=== PATIENT | female | born 1985 | race Caucasian/White ===

== ENCOUNTER → 2017-12-19 11:13 | Outpatient (CLI) | payer MEDICARE, SELFPAY ==
[2017-12-19 12:05] LABS: Absolute Lymphocyte Count 2.72 X10^3/ul (0.83-4.51); Absolute Neutrophil Count 5.5 X10^3/uL (2.0-7.7); Basophil# 0.04 X10^3/uL; Basophil% 0.4 % (0-1); Eosinophil# 0.38 X10^3/uL; Eosinophils% 4.1 % (0-5); Hematocrit 40.8 % (37-47); Hemoglobin 13.6 g/dl (12.0-15.0); Lymphocyte # 2.72 X10^3/ul (4.0); Lymphocyte % 29.6 % (19-41); Mean Corp Hgb Conc 33.3 g/gl (32-36); Mean Corpuscular Hgb 31.1 pg (27.0-32.0); Mean Corpuscular Volume 93.4 fL (81-99); Mean Platelet Vol. 11.9 fl (6.2-12.0); Monocyte# 0.51 X10^3/uL; Monocyte% 5.5 % (0-10); Neutrophil # 5.53 X10^3/uL (2.7-7.7); Neutrophil % 60.3 % (47-70); Platelet Count 203 K/mm3 (150-450); RBC Distribution Width CV 12.3 % (11.6-14.6); RBC Distribution Width SD 41.2 fl (35.1-43.9); Red Blood Count 4.37 M/mm3 (4.2-5.4); White Blood Count 9.2 K/mm3 (4.4-11.0)
[2017-12-19 12:06] LABS: POSITIVE COUNT NO; POSITIVE DIFFERENTIAL NO; POSITIVE MORPHOLOGY NO
[2017-12-19 12:28] LABS: ALB/GLOB Ratio 0.9 RATIO (0.9-2.4); AST(SGOT) 8 U/L (15-37); Alanine Aminotransfer ALT/SGPT 17 U/L (13-56); Albumin, Serum 3.3 g/dL (3.2-5.0); Alkaline Phosphatase 50 U/L (45-117); Anion Gap 9 (5-15); BUN 12 mg/dL (7-18); BUN/Creat Ratio 18.3 RATIO (10-20); Calcium,Total 8.4 mg/dL (8.5-10.1); Chloride 107 mmol/L (98-107); Creatinine, Serum 0.66 mg/dL (0.55-1.02); EST Glomerular Filtration Rate 113 mL/min (>60); Est Glom Filt Rate - Afr Amer 136 mL/min (>60); Ferritin 32 ng/mL (8-252); Globulin 3.6 g/dL (2.2-4.2); Glucose 86 mg/dL (74-106); Iron 121 ug/dL (50-170); Potassium 3.9 mmol/L (3.5-5.1); Protein, Total 6.9 g/dL (6.4-8.2); Sodium Level 142 mmol/L (136-145); T4 Free Direct 0.93 ng/dL (0.76-1.46); Thyroid Stim Hormone (TSH) 2.36 uIU/mL (0.358-3.74)
== END ==
PROVIDERS: Family Provider Family Medicine; PCP Family Medicine; Visit Provider Family Medicine
DX: N92.1 Excessive and frequent menstruation with irregular cycle (principal); I15.9 Secondary hypertension, unspecified; F41.9 Anxiety disorder, unspecified; R53.83 Other fatigue; E66.01 Morbid (severe) obesity due to excess calories
CPT/HCPCS: 36415; 80053; 82728; 83540; 84439; 84443; 85025

== ENCOUNTER 2024-12-26 18:06 | Emergency (ER) | payer MEDICARE, SELFPAY ==
[2024-12-26 18:08] VITALS: BP 152/108; PULSE 89; RESP 18; TEMP 36.6; O2SAT 97
[2024-12-26 18:56] VITALS: BMI 49.2
--- NOTE | 2024-12-26 18:57 | EDS_ITS ---
HPI History of Present Illness Chief Complaint: Lower Extremity Injury Narrative Narrative: Chief complaint and HPI: Right knee pain. 39-year-old female with past medical history of obesity presents for evaluation of right knee pain. Patient states for the past week she having pain in her right knee. States that is difficult to ambulate. She denies any injury or trauma. Denies any numbness or tingling. Denies any fever, chills, redness. Patient saw her PCP for the right knee pain in which she had an x-ray performed. She was able to show me the x-ray read. Negative for fracture or dislocation. No reported arthritis. Patient was told to take Tylenol and ibuprofen as needed for pain. She is set up to start physical therapy. Patient states her pain is continued which is why she presents today. Denies any calf tenderness. Review of systems: See HPI Medications: As listed on the chart Allergies: As listed on the chart PFSH: Per chart Vital signs: As listed on the chart. Reviewed. Physical exam: Gen: A&O x3, NAD Head: Normocephalic, atraumatic Eyes: No sclera icterus, conjunctiva clear ENT: Moist mucous membranes CV: Regular rate Resp: Nonlabored respiration Musc: Full ROM, of all extremities including the right knee, no deformity, no knee instability, no erythema/warmth/swelling/ecchymosis/crepitus rash to the knee, DP/PT pulses +2 bilaterally, good capillary refill, sensation intact, compartments soft, negative Homans' sign, minimal tenderness to palpation with movement of the right knee mostly along the lateral collateral ligament. Skin: Warm, dry Neuro: Alert, oriented, grossly intact, sensation intact Psych: Cooperative, appropriate mood and affect PFSH PFSH Medical History no medical history Allergy/AdvReac Type Severity Reaction Status Date / Time codeine Allergy Intermediate Rash Verified 12/26/24 18:08 adhesive tape Allergy Mild Rash Verified 12/26/24 18:08 lisinopril Allergy Mild unknown Verified 12/26/24 18:08 Penicillins (PCN) Allergy Mild Rash Verified 12/26/24 18:08 Surgical History no surgical history Social History Smoking Status: Current every day smoker tobacco type: cigarettes EXAM Physical Exam Const Vital Signs: 12/26/24 18:08 Temperature 97.8 F Temperature Source Temporal Pulse Rate 89 Respiratory Rate 18 Blood Pressure 152/108 H Blood Pressure Mean 122 Pulse Ox 97 Oxygen Delivery Method Room Air MDM MDM MDM Narrative Medical decision making narrative: 39-year-old female with past medical history of obesity presents for evaluation of right knee pain. Patient states for the past week she having pain in her right knee. States that is difficult to ambulate. She denies any numbness, tingling, weakness, infectious symptoms. Patient saw her PCP for the right knee pain in which she had an x-ray performed. She was able to show me the x-ray read. Negative for fracture or dislocation. No reported arthritis. Given patient does have a x-ray of the knee, I do not think another x-ray is needed. It was negative for arthritis, fracture, dislocation. Pain may be secondary to knee sprain versus muscle strain. Recommend continuing rest with Tylenol/ibuprofen as needed for pain. Will apply Bora bandage for comfort. She was educated that she could use an [id number] soft knee brace as needed as well. Will give her a one-time dose of Toradol IM. He was educated not to take ibuprofen for 8 hours. Return precautions explained. Follow-up with PCP and orthopedics which I will refer her to. She confirmed understand the plan. Patient stable to discharge home. Impression: 1. Right knee pain Discharge Plan Triage Chief Complaint: Lower Extremity Injury ED Provider: Harmeet Webb Dx/Rx/DC Orders Primary Care Provider: Larry Schroeder Referrals: Larry Schroeder MD [Primary Care Provider] - Print Language: Citizen Of [place]
[2024-12-26] MEDS: Ketorolac 30 MG/ML Syringe IM (19:20)
[2024-12-26 19:23] VITALS: PULSE 78; RESP 16; TEMP 36.6; O2SAT 99
--- OUTSIDE RECORDS SUMMARY | 2024-12-26 19:31 | XMS RPT_ITS | CCD ---
Author Organization [facility] Care Team Providers Care Tobacco Hanger Name Role Phone Cassidy Schroeder Unavailable Unavailable Cassidy Schroeder Unavailable Unavailable Lauro Quarles MD Primary Care Provider Lauro Quarles MD Primary Care Provider Lauro Quarles MD Primary Care Provi mag GEHLOT, UPENDER Attending Unavailable GEHLOT, UPENDER Consulting Unavailable OSMIN, UPENDER Admitting Unavailable LAURO QUARLES Primary Care Unava ilable GENA MCKENNA Consulting Unavailable Lauro Quarles MD Primary Care Provider Lauro Quarles MD Primary Care Provider KATEY GORDON, CASSIDY Primary Care Physician [phone] ISAC DAVILA DO Attending Unavailable CASSIDY SCHROEDER MD Primary Care Unavailable Lauro Quarles MD Primary Care Provider Podlogar DAIRY HUSBANDRY TEACHER.Mague DOW Unavailable [place] DAIRY HUSBANDRY TEACHER.Jeremy DOW Unavailable [place] DAIRY HUSBANDRY TEACHER.Jeremy DOW Unavailable [place] DAIRY HUSBANDRY TEACHER.Jeremy DOW Unavailable [place] DAIRY HUSBANDRY TEACHER.Jeremy DOW Unavailable MIRELLA GARCIA Attending Unavaila LAURO Malhotra Referring Unavailab LAURO Zamora Primary Care Unavailab MIRELLA Sue Attending Unavaila MIRELLA Farmer Referring Unavaila LAURO Malhotra Primary Care Unavailab RICHARD Kidd Referring Unavailable LAURO QUARLES Primary Care Unavailab le LAURO QUARLES Primary Care Unavailab RICHARD Kidd Attending Unavailable RICHARD BOYER Referring Unavailable MIRELLA GARCIA Attending Unavaila ble SAHRAA NESS, MIRELLA Marrero Referring Unavaila ble LAURO QUARLES Primary Care Unavailab le SAHARAGlen NESS, MIRELLA Marrero Attending Unavaila ble SAHARA NESS, MIRELLA Marrero Referring Unavaila ble LAURO QUARLES Primary Care Unavailab le SAHARAGlen NESS, MIRELLA Marrero Attending Unavaila ble SAHARA NESS, MIRELLA Marrero Referring Unavaila ble LAURO QUARLES Primary Care Unavailab le PODLOGMAGUE DONIS Attending Unavailable LAURO QUARLES Primary Care Unavailab RICHARD Kidd Attending Unavailable RICHARD BOYER Referring Unavailable LAURO QUARLES Primary Care Unavailab radha NESS, MIRELLA Marrero Attending Unavaila LAURO Malhotra Referring Unavailab LAURO Zamora Primary Care Unavailab radha NESS, MIRELLA Marrero Attending Unavaila ble LAURO QUARLES Referring Unavailab le LAURO QUARLES Primary Care Unavailab RICHARD Kidd Attending Unavailable LAURO QUARLES Primary Care Unavailab MIRELLA Sue Attending Unavaila LAURO Malhotra Referring Unavailab LAURO Zamora Primary Care Unavailab LAURO Zamora Primary Care Unavailab le PODLOGMAGUE DONIS Attending Unavailable LAURO QUARLES Primary Care Unavailab RICHARD Kidd Referring Unavailable LAURO QUARLES Primary Care Unavailab le LAURO QUARLES Primary Care Unavailab le MIRELLA GARCIA Attending Unavaila MIRELLA Farmer Referring Unavaila LAURO Malhotra Primary Care Unavailab LAURO Zamora Primary Care Unavailab RICHARD Kdid Attending Unavailable RICHARD BOYER Referring Unavailable LAURO QUARLES Primary Care Unavailab le PODLOGMAGUE DONIS Referring Unavailable LAURO QUARLES Primary Care Unavailab le NEYHART JUAN, KIN Attending Unavail able SELF Referring Unavailable LAURO QUARLES Primary Care Unavailab radha NESS, MIRELLA Marrero Attending Unavaila ble LAURO QUARLES Referring Unavailab LAURO Zamora Primary Care Unavailab le SAHARAGlen NESS, MIRELLA Marrero Attending Unavaila ble LAURO QUARLES Referring Unavailab le LAURO QUARLES Primary Care Unavailab radha NESS, MIRELLA Marrero Attending Unavaila ble SAHARA NESS, MIRELLA Marrero Referring Unavaila ble LAURO QUARLES Primary Care Unavailab le SAHARA NESS, MIRELLA Marrero Attending Unavaila ble LAURO QUARLES Referring Unavailab LAURO Zamora Primary Care Unavailab RICHARD Kidd Referring Unavailable LAURO QUARLES Primary Care Unavailab radha NESS, MIRELLA Marrero Attending Unavaila ble SAHARA NESS, MIRELLA Marrero Referring Unavaila ble LAURO QUARLES Primary Care Unavailab le KIN PABLO Attending Unavail able KIN PABLO Referring Unavail able LAURO QUARLES Primary Care Unavailab radha NESS, MIRELLA Marrero Attending Unavaila zeb NESS, MIRELLA Marrero Referring Unavaila ble LAURO QUARLES Primary Care Unavailab radha NESS, MIRELLA Marrero Attending Unavaila ble SAHARA NESS, MIRELLA Marrero Referring Unavaila ble LAURO QUARLES Primary Care Unavailab RICHARD Kidd Attending Unavailable RICHARD BOYER Referring Unavailable LAURO QUARLES Primary Care Unavailab radha NESS, MIRELLA Marrero Attending Unavaila ble SAHARA NESS, MIRELLA Marrero Referring Unavaila ble LAURO QUARLES Primary Care Unavailab LAURO Zamora Primary Care Unavailab radha NESS, MIRELLA Marrero Attending Unavaila ble SAHARA NESS, MIRELLA Marrero Referring Unavaila ble LAURO QUARLES Primary Care Unavailab LAURO Zamora B Primary Care Unavailab MARIA GUADALUPE Snowden Attending Unavailable MIRELLA GARCIA Attending Unavaila ble SAHARA NESS, MIRELLA Marrero Referring Unavaila ble LAURO QUARLES Primary Care Unavailab RICHARD Kidd Attending Unavailable RICHARD BOYER Referring Unavailable LAURO QUARLES Primary Care Unavailab MIRELLA Sue Attending Unavaila LAURO Malhotra Referring Unavailab le LAURO QUARLES Primary Care Unavailab le PODLOGMAGUE DONIS Referring Unavailable LAURO QUARLES Primary Care Unavailab le PODLOGARMAGUE Attending Unavailable LAURO QUARLES Primary Care Unavailab le Allergies Allergy Classification Reported Allergen(s) Allergy Type Date of Onset Reaction(s) Facility Adhesive Tape (2 sources) Adhesive Tape Substance Allergy [facility] Angiotensin Converting Enzyme (ADOLFO) Inhibitors (2 sources) Lisinopril Drug Allergy Anaphylaxis [facility] hydroCHLOROthiazide / Lisinopril (2 sources) hydroCHLOROthiazide / Lisinopril Drug Allergy GI Upset [facility] Work Phone: Opioid Agonists (2 sources) Codeine Drug Allergy Hives, Swelling [facility] Penicillins (antibiotic) (4 sources) Amoxicillin Drug Allergy [facility] (20 sources) Adhesive Tape; Translations: [ADHESIVE TAPE (ROSINS)] Propensity to adverse reactions [facility] (20 sources) Amoxicillin; Translations: [AMOXICILLIN] Drug Allergy [facility] (20 sources) Codeine; Translations: [CODEINE] Drug Allergy Hives, Swelling, Anaphylaxis [facility] (20 sources) hydroCHLOROthiazide / Lisinopril; Translations: [LISINOPRIL-HYDROCHLO ROTHIAZIDE] Drug Allergy GI Upset [facility] Work Phone: (19 sources) Penicillins; Translations: [PENICILLINS] Propensity to adverse reactions [facility] (20 sources) Penicillins Propensity to adverse reactions [facility] (20 sources) Lisinopril; Translations: [LISINOPRIL] Drug Allergy Anaphylaxis [facility] (2 sources) Penicillin G; Translations: [PENICILLIN G] Drug Allergy Hives [facility] (20 sources) Adhesive Tape-Silicones; Translations: [ADHESIVE TAPE-SILICONES] Propensity to adverse reactions to drug 022 Unknown [facility] (1 source) Adhesive Tape Allergy to substance [facility] (1 source) Penicillin; Translations: [penicillin] Drug Allergy [facility] (13 sources) Penicillins Propensity to adverse reactions 006 [facility] Medications Current Medications Medication Drug Class(es) Dates Sig (Normalized) Sig (Original) acyclovir 400 mg oral tablet (4 sources) Herpesvirus Nucleoside Analog DNA Polymerase Inhibitor, Herpes Simplex Virus Nucleoside Analog DNA Polymerase Inhibitor, Herpes Zoster Virus Nucleoside Analog DNA Polymerase Inhibitor Start: 06-23-2024 End: 06-28-2024 take 1 tablet by mouth three times daily acyclovir (ZOVIRAX) 400 mg tablet Indications: Cold sore Take 1 tablet by mouth three times a day for 5 days. 15 tablet 06/23/2024 06/28/2024 Active Start: 03-07-2023 End: 03-12-2023 take 1 tablet by mouth three times daily acyclovir (ZOVIRAX) 400 mg tablet Indications: Cold sore Take 1 tablet by mouth three times a day for 5 days. 15 tablet 0 03/07/2023 03/12/2023 Active Start: 02-27-2022 End: 03-01-2022 take 1 tablet by mouth three times daily acyclovir (ZOVIRAX) 800 mg tablet Take 1 tablet by mouth three times daily for 2 days. 6 tablet 2 02/27/2022 03/01/2022 Active Comment on above: Take 1 tablet by renae th three times daily for 2 days. Take 1 tablet by renae th three times a day for 5 days. amLODIPine 5 mg oral tablet (20 sources) Dihydropyridine Calcium Channel Nirali Start: 4 End: 5 take 1 tablet by mouth once daily amLODIPine (NORVASC) 5 mg tablet Indications: Hypertension, essential Take 1 tablet by mouth once daily. 90 tablet 1 07/11/2024 01/07/2025 Active Start: 03-07-2023 take 1 tablet by renae th once daily amLODIPine (NORVASC) 5 mg tablet Indications: Hypertension, essential Take 1 tablet by mouth once daily. 30 tablet 1 03/07/2023 Active Start: 01-08-2022 End: 01-11-2022 amLODIPine (NORVASC) tablet 10 mg Start: 06-29-2020 End: 01-08-2023 take 1 tablet by mouth once daily amLODIPine (NORVASC) 10 mg tablet Take 1 tablet by mouth once daily. 90 tablet 1 12/29/2022 01/08/2023 Discontinued (Course of therapy completed) Comment on above: Take 1 tablet by renae once daily. ARIPiprazole 2 mg oral tablet (4 sources) Atypical Antipsychotic Start: 06-09-19 End: 07-16-19 take 1 tablet by mouth once daily, then take 2 tablets by mouth once daily ARIPiprazole (ABILIFY) 2 mg tablet Take 1 tablet by mouth once daily for 7 days, THEN 2 tablets once daily. 67 tablet 06/09/2024 07/16/2024 Active busPIRone hydrochloride 15 mg oral tablet (8 sources) Start: 04-02-20 End: 05-02-20 take 1 tablet by mouth twice daily busPIRone (BUSPAR) 15 mg tablet Take 1 tablet by mouth two times a day. (Morning and afternoon). 60 tablet 04/02/2024 05/02/2024 Active Start: 03-03-2024 End: 05-02-2024 take 1 tablet by mouth twice daily busPIRone (BUSPAR) 10 mg tablet Take 1 tablet by mouth two times a day. 60 tablet 1 03/03/2024 04/02/2024 Discontinued COMPOUNDED PRESCRIPTION (20 sources) Start: 09-07-2017 COMPOUNDED PRE SCRIPTION Full length original Power Steps 1 Box 09/07/2017 Active Start: 09-07-2017 COMPOUNDED PRE SCRIPTION Full length original Power Steps 1 Box 0 09/07/2017 Active Comment on above: Full length original Power Steps doxycycline hyclate 100 mg oral tablet (3 sources) Tetracycline-class Drug Start: 08-17-2024 End: 08-17-2024 take 2 tablets by mouth once doxycycline (VIBRA-TABS) 100 mg tablet Indications: Tick bite of right foot, initial encounter Take 2 tablets by mouth one time only for 1 dose. 2 tablet 08/17/2024 08/17/2024 Active Start: 02-17-2022 End: 02-27-2022 take 1 tablet by mouth twice daily doxycycline (VIBRA-TABS) 100 mg tablet Indications: Bacterial sinusitis Take 1 tablet by mouth twice daily for 10 days. 20 tablet 0 02/17/2022 02/27/2022 Active Comment on above: Take 1 tablet by renae th twice daily for 10 days. lamoTRIgine 200 mg oral tablet (20 sources) Mood Stabilizer, Anti-epileptic Agent Start: 04-07-2022 End: 02-03-2025 take 1 tablet by mouth once daily lamoTRIgine (LAMICTAL) 200 mg tablet Take 1 tablet by mouth once daily. 90 tablet 11/05/2024 02/03/2025 Active Start: 01-08-2022 End: 01-11-2022 lamoTRIgine (LAMICTAL) table t 200 mg Start: 01-08-2022 End: 01-08-2022 lamoTRIgine (LAMICTAL) table t 150 mg Start: 12-30-2021 End: 03-31-2022 take 1 tablet by mouth once daily lamoTRIgine (LAMICTAL) 200 mg tablet Take 1 tablet by mouth once daily. 30 tablet 1 03/01/2022 03/31/2022 Active Start: 11-28-2021 End: 12-28-2021 take 1 tablet by mouth once daily lamoTRIgine (LAMICTAL) 200 mg tablet Take 1 tablet by mouth once daily. 30 tablet 1 11/28/2021 12/28/2021 Active Start: 09-07-2021 End: 01-11-2022 take 1 tablet by mouth once daily lamoTRIgine (LAMICTAL) 150 mg tablet Take 1 tablet by mouth once daily. 30 tablet 1 10/24/2021 11/28/2021 Discontinued Start: 11-05-2019 End: 09-07-2021 take 4 tablets by mouth once daily lamoTRIgine (LAMICTAL) 25 mg tablet Take 100 mg by mouth once daily. 0 11/05/2019 09/07/2021 Discontinued (Course of therapy completed) Comment on above: Take 100 mg by mouth once daily. Take 1 tablet by renae th once daily. Levonorgestrel (20 sources) Progestin, Progestin-containing Intrauterine Device levonorgestrel (MIRLANDE NA INTRAUTERINE) by INTRAUTERINE route. Active levonorgestrel ( MIRENA INTRAUTERINE) by INTRAUTERINE route. 0 Active Comment on above: by INTRAUTERINE rout e. lithium carbonate 450 mg extended release oral tablet (20 sources) Start: 04-07-2022 End: 02-03-2025 take 2 tablets by mouth once daily at bedtime lithium carbonate ER 450 mg CR tablet Take 2 tablets by mouth daily at bedtime. 180 tablet 11/05/2024 02/03/2025 Active Start: 02-02-2022 End: 03-31-2022 take 2 tablets by mouth once daily at bedtime lithium carbonate ER 450 mg CR tablet Take 2 tablets by mouth daily at bedtime. 30 tablet 2 03/01/2022 03/31/2022 Active Start: 12-19-2021 End: 02-10-2022 take 1 tablet by mouth twice daily lithium carbonate ER 450 mg CR tablet Take 1 tablet by mouth twice daily. 60 tablet 0 12/19/2021 02/02/2022 Discontinued Start: 12-07-2021 End: 01-06-2022 take 1 capsule by mouth twice daily at mealtime lithium carbonate (ESKALITH) 300 mg capsule Take 1 capsule by mouth twice daily with meals. 60 capsule 1 12/07/2021 12/19/2021 Discontinued Comment on above: Take 1 capsule by mo uth twice daily with meals. Take 1 tablet by renae th twice daily. Take 2 tablets by mo uth daily at bedtime. losartan potassium 100 mg oral tablet (20 sources) Angiotensin 2 Receptor Nirali Start: End: take 1 tablet by mouth once daily losartan (COZAAR) 100 mg tablet Indications: Primary hypertension Take 1 tablet by mouth once daily. 90 tablet 1 04/11/2024 Active Start: 03-06-2022 take 1 tablet by renae th once daily losartan (COZAAR) 100 mg tablet Indications: Primary hypertension Take 1 tablet by mouth once daily. 90 tablet 1 03/06/2022 Active Start: 06-29-2020 End: 09-07-2021 take 1 tablet by mouth once daily losartan (COZAAR) 100 mg tablet Take 1 tablet by mouth once daily. 90 tablet 3 06/29/2020 09/07/2021 Discontinued (Side Effects) Comment on above: Take 1 tablet by renae th once daily. Take 100 mg by mouth once daily. lurasidone hydrochloride 60 mg oral tablet (20 sources) Atypical Antipsychotic Start: End: take 1 tablet by mouth once daily at dinner lurasidone (LATUDA) 60 mg tablet Take 1 tablet by mouth daily with dinner. 90 tablet 11/05/2024 02/03/2025 Active Start: 07-22-2024 End: 10-20-2024 take 1 tablet by mouth once daily at dinner lurasidone (LATUDA) 40 mg tablet Take 1 tablet by mouth daily with dinner. 90 tablet 07/22/2024 08/11/2024 Discontinued metFORMIN hydrochloride 500 mg oral tablet (20 sources) Biguanide Start: 10-17-2023 End: 02-03-2025 take 1 tablet by mouth twice daily at mealtime metFORMIN (GLUCOPHAGE) 500 mg tablet Take 1 tablet by mouth two times a day with meals. 180 tablet 11/05/2024 02/03/2025 Active Start: 04-07-2022 End: 08-01-2023 take 1 tablet by mouth twice daily at mealtime metFORMIN (GLUCOPHAGE) 500 mg tablet Take 1 tablet by mouth two times a day with meals. 180 tablet 0 05/03/2023 Active Start: 03-01-2022 End: 03-31-2022 take 1 tablet by mouth twice daily at mealtime metFORMIN (GLUCOPHAGE) 500 mg tablet Take 1 tablet by mouth twice daily with meals. 60 tablet 1 03/01/2022 03/31/2022 Active Start: 02-02-2022 End: 03-11-2022 take 1 tablet by mouth once daily at dinner, then take 1 tablet by mouth twice daily at mealtime metFORMIN (GLUCOPHAGE) 500 mg tablet Take 1 tablet by mouth daily with dinner for 7 days, THEN 1 tablet twice daily with meals. 67 tablet 1 02/02/2022 03/01/2022 Discontinued Comment on above: Take 1 tablet by renae th daily with dinner for 7 days, THEN 1 tablet twice daily with meals. Take 1 tablet by renae th twice daily with meals. Take 1 tablet by renae th two times a day with meals. nitrofurantoin, macrocrystals 25 mg / nitrofurantoin, monohydrate 75 mg oral capsule (8 sources) Nitrofuran Antibacterial Start: 11-19-19 End: 11-24-19 take 1 capsule by mouth twice daily nitrofurantoin monohydrate and macrocrystal (MACROBID) 100 mg capsule Indications: Urinary frequency Take 1 capsule by mouth two times a day for 5 days. 10 capsule 11/18/2024 11/23/2024 Active Start: 01-11-2022 take 1 capsule by [facility] every twelve hours nitrofurantoin, macrocrystal-monohydrate , (MACROBID) 100 MG capsule Take 1 (one) capsule (100 mg total) by mouth every 12 (twelve) hours . 3 capsule 0 01/11/2022 Active Start: 01-08-2022 End: 01-25-2022 take 1 capsule by mouth every twelve hours nitrofurantoin monohydrate and macrocrystal (MACROBID) 100 mg capsule Take 100 mg by mouth q 12 HR. 0 01/11/2022 01/25/2022 Discontinued (Course of therapy completed) Comment on above: Take 100 mg by mouth q 12 HR. nystatin 100 unt/mg topical ointment (3 sources) Polyene Antifungal Start: 03-11-2024 End: 03-25-2024 nystatin (MYCOSTATIN) ointment Indications: Intertrigo Apply 1 application to affected area two times a day for 14 days. 30 g 1 03/11/2024 03/25/2024 Active Start: 09-26-2021 End: 10-10-2021 nystatin (MYCOSTATIN) ointme nt Indications: Intertrigo Apply 1 application to affected area twice daily for 14 days. 30 g 1 09/26/2021 10/10/2021 Active Comment on above: Apply 1 application to affected area twice daily for 14 days. omeprazole 40 mg delayed release oral capsule (20 sources) Proton Pump Inhibitor Start: End: take 1 capsule by mouth twice daily in the morning omeprazole (PRILOSEC) 40 mg capsule Take 1 capsule by mouth two times a day. Please take in the morning, wait 30 minutes before eating/drinking/takin g other medication. Please take second dose 30 minutes before eating dinner 60 capsule 2 12/21/2023 02/04/2024 Discontinued Start: 11-26-2023 End: 02-24-2024 take 1 capsule by mouth once daily before breakfast, then take 1 capsule by mouth once at dinner omeprazole (PRILOSEC) 40 mg capsule take 1 capsule by mouth EVERY MORNING BEFORE BREAKFAST WAIT 30 MINUTES BEFORE EATING/DRINKING/TAKING OTHER MEDICATIONS THEN TAKE THE SECOND PILL BEFORE EATING DINNER 180 capsule 2 02/04/2024 Active Start: 08-06-2023 End: 11-04-2023 take 1 capsule by mouth once daily omeprazole (PRILOSEC) 40 mg capsule Take 1 capsule by mouth once daily. 90 capsule 0 08/06/2023 Active Start: 01-17-2023 End: 06-25-2023 take 1 capsule by mouth once daily omeprazole (PRILOSEC) 40 mg capsule Take 1 capsule by mouth once daily. 30 capsule 2 03/27/2023 Active Start: 09-22-2020 End: 01-31-2022 take 1 capsule by mouth once daily before breakfast omeprazole (PRILOSEC) 40 mg capsule Indications: GERD without esophagitis Take 1 capsule by mouth daily before breakfast. 1/2 hr before meal. 90 capsule 0 08/15/2021 01/17/2022 Discontinued Comment on above: Take 1 capsule by mo uth daily before breakfast. 1/2 hr before meal. Take 40 mg by mouth. Take 1 capsule by mo uth once daily. triamcinolone acetonide 0.25 mg/ml topical lotion (6 sources) Corticosteroid Start: 07-23-2024 End: 08-06-2024 triamcinolone (KENALOG) 0.025 % lotn Indications: Psoriasis (a type of skin inflammation) Apply 1 application to affected area two times a day for 14 days. 60 mL 1 07/23/2024 08/06/2024 Active Start: 03-07-2023 End: 03-21-2023 triamcinolone (KENALOG) 0.02 5 % lotn Indications: Psoriasis (a type of skin inflammation) Apply 1 application to affected area two times a day for 14 days. 60 mL 1 03/07/2023 03/21/2023 Active Start: 12-15-2021 End: 12-15-2021 triamcinolone acetonide 5 mg injection (KeNALog 10) Comment on above: Apply 1 application to affected area two times a day for 14 days. Completed/Discontinued Medications Medication Drug Class(es) Dates Sig (Normalized) Sig (Original) [id number] 200 actuat albuterol 0.09 mg/actuat metered dose inhaler (20 sources) beta2-Adrenergic Agonist Start: 02-05-2024 End: 09-09-2024 take 2 puff(s) by inhalation every four hours as needed for wheezing albuterol HFA (PROVENTIL HFA, VENTOLIN HFA) 90 mcg/actuation inhaler Indications: Wheezing , SOB (shortness of breath) Inhale 2 Puffs as instructed every 4 hours as needed for wheezing/shortness of breath. 18 g 1 02/05/2024 09/09/2024 Discontinued aluminum hydroxide 40 mg/ml / magnesium hydroxide 40 mg/ml / simethicone 4 mg/ml oral suspension (1 source) Start: 01-08-2022 End: 01-11-2022 take 30 mL by mouth every four hours as needed aluminum-magnesium hydroxide-simethico ne (MAALOX PLUS) 200-200-20 mg/5 mL suspension 30 mL benzonatate 100 mg oral capsule (6 sources) Non-narcotic Antitussive Start: 11-18-2020 End: 09-07-2021 take 1 capsule by mouth every eight hours as needed benzonatate (TESSALON PERLES) 100 mg capsule Take 1 capsule by mouth three times daily as needed for cough. 12 capsule 0 11/18/2020 09/07/2021 Discontinued (Course of therapy completed) Comment on above: Take 1 capsule by [facility] three times daily as needed for cough. 2 ml benztropine mesylate 1 mg/ml injection (1 source) Anticholinergic, Antihistamine Start: 01-08-2022 End: 01-11-2022 inject 2 mg by intramuscular injection every twenty-four hours as needed benztropine (COGENTIN) injection 2 mg brexpiprazole 1 mg oral tablet (2 sources) Atypical Antipsychotic Start: 07-02-2024 End: 08-01-2024 take 1 tablet by mouth once daily in the morning brexpiprazole (REXULTI) 1 mg tablet Take 1 tablet by mouth every morning. 30 tablet 07/02/2024 07/22/2024 Discontinued (Cost of medication) 5 ml bupivacaine hydrochloride 5 mg/ml injection (1 source) Amide Local Anesthetic Start: 12-15-2021 End: 12-15-2021 bupivacaine (PF) 0.5 % (5 mg/mL) 2.5 mg injection cholecalciferol 1.25 mg oral capsule (13 sources) Vitamin D Start: 11-11-2021 End: 02-09-2022 take 1 capsule by mouth every week cholecalciferol, Vitamin D3, (VITAMIN D3) 1,250 mcg (50,000 unit) cap capsule Take 1 capsule by mouth one time a week. 12 capsule 0 11/11/2021 01/25/2022 Discontinued (Course of therapy completed) Comment on above: Take 1 capsule by [facility] one time a week. cyclobenzaprine hydrochloride 10 mg oral tablet (20 sources) Muscle Relaxant Start: 09-18-2022 End: 03-07-2023 take 1 tablet by mouth three times daily as needed for muscle spasms cyclobenzaprine (FLEXERIL) 10 mg tablet Indications: Acute bilateral low back pain without sciatica Take 1 tablet by mouth three times daily as needed for muscle spasm. 30 tablet 0 09/18/2022 03/07/2023 Discontinued (Course of therapy completed) Comment on above: Take 1 tablet by [facility] three times daily as needed for muscle spasm. 1 ml dexamethasone phosphate 4 mg/ml injection (1 source) Corticosteroid Start: 12-15-2021 End: 12-15-2021 dexAMETHasone sodium phosphate 2 mg injection (DECADRON) DULoxetine 30 mg delayed release oral capsule (20 sources) Serotonin and Norepinephrine Reuptake Inhibitor Start: 10-24-2021 End: 11-04-2021 take 1 capsule by mouth every other day DULoxetine (CYMBALTA) 30 mg capsule Take 1 capsule by mouth every other day. 0 10/24/2021 11/04/2021 Discontinued (Course of therapy completed) Start: 10-04-2021 End: 11-03-2021 take 1 capsule by mouth once daily DULoxetine (CYMBALTA) 30 mg capsule Take 1 capsule by mouth once daily. 30 capsule 1 10/04/2021 10/24/2021 Discontinued (Adjust Sig - Block E-Cancel) Start: 01-18-2021 End: 09-19-2021 take 1 capsule by mouth once daily DULoxetine (CYMBALTA) 60 mg capsule Take 1 capsule by mouth once daily. 90 capsule 1 01/18/2021 09/19/2021 Discontinued (Side Effects) Start: 05-19-2019 End: 09-07-2021 take 1 capsule by mouth once daily DULoxetine (CYMBALTA) 30 mg capsule Take 1 capsule by mouth once daily. 90 capsule 1 01/18/2021 09/07/2021 Discontinued (Side Effects) Comment on above: Take one 30 mg capsu le with the 60 mg capsule to equal 90 mg daily Take 1 capsule by mo ut once daily. Take 1 capsule by mo ut every other day. fluticasone propionate 0.05 mg/actuat metered dose nasal spray (5 sources) Corticosteroid Start: 02-09-20 take 2 spray(s) by mouth once daily fluticasone (FLONASE) 50 mcg/actuation nasal spray Use 2 Sprays in each nostril once daily. Rinse mouth after use. 11.1 mL 0 02/08/2022 Active Comment on above: Use 2 Sprays in each nostril once daily. Rinse mouth after use. Haloperidol (1 source) Typical Antipsychotic Start: 01-09-20 End: 01-12-20 take 1 tablet by mouth every four hours as needed haloperidoL (HALDOL) tablet 5 mg hydrOXYzine hydrochloride 50 mg oral tablet (20 sources) Antihistamine Start: 08-10-19 End: 11-08-19 take 1 tablet by mouth every twenty-four hours as needed hydrOXYzine HCl (ATARAX) 50 mg tablet Take 1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 equation. Glucose [Mass/Vol] 111 mg/dL High 65 - 99 mg/dL [facility] HCO3 [Moles/Vol] 24 mmol/L 21 - 32 mmol/L [facility] Potassium [Moles/Vol] 3.5 mmol/L 3.5 - 5.1 mmol/L [facility] Protein [Mass/Vol] 8.1 g/dL High 6 - 8 g/dL [facility] alth Sodium [Moles/Vol] 139 mmol/L 135 - 145 mmol/L [facility] Urea nitrogen [Mass/Vol] 14 mg/dL 8 - 25 mg/dL [facility] Urea nitrogen/Creatinine [Mass ratio] 12.8 mg/mg 10 - 20 [facility] has implemented the eGFR calculation approach that does not have a coefficient for race that conforms to the NKF-ASN Task Force Recommendations. [facility] Lipid 1996 panelon 2 Cholesterol [Mass/Vol] 227 mg/dL High 100 - 199 mg/dL [facility] Comment on above: National Cholesterol Education Program Guidelines: Cholesterol Desirable: <200 mg/dL Borderline High: 200-239 mg/dL High: greater than or equal to 240 mg/dL Cholesterol in HDL [Mass/Vol] 38 mg/dL Low 40 - 59 mg/dL [facility] Comment on above: National Cholesterol Education Program Guidelines: HDL Cholesterol Low: <40 mg/dL Near Optimal: 40-59 mg/dL High: greater than or equal to 60 mg/dL Cholesterol in LDL [Mass/Vol] 159 mg/dL High 10 - 130 mg/dL [facility] Comment on above: National Cholesterol Education Program Guidelines: LDL Cholesterol Optimal: <100 mg/dL Near Optimal/above Optimal: 100-129 mg/dL Borderline High: 130-159 mg/dL High: 160-189 mg/dL Very High: greater than or equal to 190 mg/dL Cholesterol non HDL [Mass/Vol] 189 mg/dL [facility] Comment on above: National Cholesterol Education Program Guidelines: NON HDL Cholesterol Desirable: <130 mg/dL Borderline High: 130-159 mg/dL High: 160-189 mg/dL Very High: > or = 190 mg/dL Cholesterol.total/Ch olesterol in HDL [Mass ratio] 6.0 {ratio} ratio [facility] Comment on above: Female Cholesterol/H DL Ratio: Average risk: 4.4 1/2 average risk: 3.3 2 x average risk: 7.1 Triglyceride [Mass/Vol] 152 mg/dL High 30 - 150 mg/dL [facility] Comment on above: National Cholesterol Education Program Guidelines: Triglyceride Normal: <150 mg/dL Borderline High: 150-199 mg/dL High: 200-499 mg/dL Very High: greater than or equal to 500 mg/dL No Panel Informationon 01-08 [facility] Interpretation and review of laboratory results Abnormal [facility] TSH DL <= 0.005 mIU/L Qnon 0 01-08-2022 Interpretation and review of laboratory results Normal [facility] TSH Qn 1.95 m[IU]/L [facility] UrinalysisOrdered By: Hayes Moyer on 01-08-2022 Bacteria Auto Ql (U) Few Abnormal None Seen /hpf [facility] Bilirubin Ql (U) Negative Negative [facility] th Clarity Refractometry automated (U) Cloudy Abnormal Clear [facility] Color (U) Yellow Colorless, Yellow [facility] Epithelial cells.squamous Auto (Urine sed) [#/Area] 5 High [facility] Glucose Auto test strip (U) [Mass/Vol] Negative Negative mg/dL [facility] Hemoglobin Auto test strip Ql (U) Moderate Abnormal Negative [facility] Interpretation and review of laboratory results Abnormal [facility] Ketones (U) [Mass/Vol] Negative Negative mg/dL [facility] Leukocyte clumps Auto (Urine sed) [#/Area] Many Abnormal None Seen /hpf [facility] Leukocyte esterase Auto test strip Ql (U) Large Abnormal Negative [facility] Mucus Auto (Urine sed) [#/Area] Few Abnormal None Seen, Rare /lpf [facility] Nitrite Auto test strip Ql (U) Negative Negative [facility] pH (U) 8.0 [pH] High 5 - 7 [facility] Protein (U) [Mass/Vol] 30 mg/dL Abnormal Negative mg/dL [facility] Comment on above: False positive resul ts may occur in urines with large amounts of hemoglobin, pH greater than 8.0, contrast medium, or disinfectants including ammonium compounds. RBC Auto (Urine sed) [#/Area] 67 High [facility] Specific gravity (U) [Rel density] 1.014 1.005 - 1.025 [facility] Urobilinogen (U) [Mass/Vol] mg/dL NINF - 2.0 mg/dL [facility] WBC Auto (Urine sed) [#/Area] High [facility] Microscopic examination is performed on all urinalysis samples and only positive findings are reported. The test for blood on the chemical analytic portion of urinalysis may also be positive due to hemoglobinuria and myoglobinuria and if red blood cells are present they are quantified by microscopic examination. [facility] Alcohol, Medicalon 2 Ethanol [Mass/Vol] mg/dL NINF - 10 .00 mg/dL [facility] Comment on above: Alcohol cutoff: <10. 00 mg/dL = None Detected Beta HCG ( test) Ql on 01-07-2022 Interpretation and review of laboratory results Normal [facility] Negative: The result is less than or equal to 5 mIU/mL of HCG. [facility] COVID-19, MOLECULARon 2021 SARS-CoV-2 (COVID-19) RNA ENZO+probe Ql (Unsp spec) Not detected Normal Not Detected [facility] Comment on above: Order Comment: This test was performed under the FDA's Emergency Use Authorization (EUA). Testing was performed using the Rachana SARS-CoV-2 RT-PCR Test on the [facility] System. This test has not been approved for use in asymptomatic patients and its performance in this patient population has not been evaluated. Negative results do not rule out the presence of SARS-CoV-2. Fact sheets for the EUA can be found at the following links: For Healthcare Providers: https://www.fda.gov/media/915489/download For Patients: https://www.fda.gov/media/553164/download Performed By: #### L [id number] #### [facility] [address], [place] [address] Paul Martinez M.D. [id number] COVID-19, MolecularOrdered B y: Evelyn Stephanie on 01-07-2022 SARS-CoV-2 (COVID-19) RNA ENZO+probe Ql (Resp) Not detected Not Detected [facility] Ethanol [Mass/Vol]on 022 Interpretation and review of laboratory results Normal [facility] HCG (QUALITATIVE)on 01-08-20 22 Beta HCG ( test) Ql Negative Negative [facility] No Panel Informationon 01-07 Extra Tube Hold for add-ons[facility] Comment on above: Auto resulted. [facility] SARS-CoV-2 (COVID-19) RNA NA A+probe Ql (Resp)Ordered By: Evelyn Brown on 01-07-2022 Interpretation and review of laboratory results Normal [facility] This test was performed under the FDA's Emergency Use Authorization (EUA). Testing was performed using the Rachana SARS-CoV-2 RT-PCR Test on the [employer] [facility] System. This test has not been approved for use in asymptomatic patients and its performance in this patient population has not been evaluated. Negative results do not rule out the presence of SARS-CoV-2. Fact sheets for the EUA can be found at the following links: For Healthcare Providers: https://www.fda.gov/ media/394003/downloa d For Patients: https://www.fda.gov/ media/747751/downloa d [facility] Urine Drug Screenon 01-08-20 22 Amphetamines Ql (U) Not detected None Detected [facility] Comment on above: Urine Amphetamine Cu toff: < 1000 ng/mL = None Detected Barbiturates Screen Ql (U) Not detected None Detected [facility] Comment on above: Urine Barbiturates C utoff: < 200 ng/mL = None Detected Benzodiazepines Ql (U) Not detected None Detected [facility] Comment on above: Urine Benzodiazepine Cutoff: < 200 ng/mL = None Detected Buprenorphine Ql (U) Not detected None Detected [facility] Comment on above: Urine Buprenorphine Cutoff: < 5 ng/mL = None Detected Cannabinoids Screen Ql (U) Positive Abnormal None Detected [facility] Comment on above: Urine Cannabinoids C utoff: < 50 ng/mL = None Detected Cocaine Ql (U) Not detected None Detected [facility] Comment on above: Urine Cocaine Cutoff : < 300 ng/mL = None Detected fentaNYL+Norfentanyl Screen Ql (U) Not detected None Detected [facility] Comment on above: Urine Fentanyl Cutof f: < 1 ng/mL = None Detected Interpretation and review of laboratory results Abnormal [facility] Methadone Screen Ql (U) Not detected None Detected [facility] Comment on above: Urine Methadone Cuto ff: < 300 ng/mL = None Detected Opiates Screen Ql (U) Not detected None Detected [facility] Comment on above: Urine Opiates Cutoff : < 300 ng/mL = None Detected oxyCODONE Ql (U) Not detected None Detected [facility] Comment on above: Urine Oxycodone Cuto ff: < 100 ng/mL = None Detected Specimen will be kept for 1 week, if the sample is adequate. Confirmation testing can be initiated by calling the lab within 1 week. Screen results should be used for treatment purposes only. [facility] COVID PCR, SCREENING CONGREG ATEon 11-13-2019 CORONAVIRUS 2019,PCR NOT DETECTED Normal Not Detected [facility] Comment on above: Result Comment: This assay is designed to detect the N, ORF1ab and/or S genes of SARS-CoV-2 via nucleic acid amplification. A Negative (NOT DETECTED) result does not preclude 2019-nCoV infection since the adequacy of sample collection and/or low viral burden may result in presence of viral nucleic acids below the clinical sensitivity of this test method. Negative (NOT DETECTED) result should not be used as the sole basis for treatment or other patient management decisions. Rather negative results should be combined with clinical observations, patient history, and epidemiological information to make patient management decisions. Fact sheet for providers: https://www.fda.gov/media/826731/download Fact sheet for patients: https://www.fda.gov/media/698051/download This test has received FDA Emergency Use Authorization (EUA) and has been verified by [facility] ([facility]). This test is only authorized for the duration of time that circumstances exist to justify the authorization of the emergency use of in vitro diagnostic tests for the detection of SARS-CoV-2 virus and/or diagnosis of COVID-19 infection under section 564(b)(1) of the Act, 21 U.S.C. 360bbb-3(b)(1), unless the authorization is terminated or revoked sooner. [facility] ([facility]) is certified under CLIA-88 as qualified to perform high complexity testing. This tests analytical performance characteristics have been determined by [facility]. Testing is performed at [facility] is located at [address] [place] [address] (CLIA License #[id number], CAP #[id number]). Performed By: #### C VCLA #### [facility] [address] [place] [address] COVID PCR, SCREENING CONGREG ATEon 11-12-2019 Lab Specimen Source Nasal, Nasopharyngeal Normal [facility] Comment on above: Performed By: #### C VCLA #### [facility] [address] [place] [address] CBC W/Diff, Automatedon 08-0 Absolute Neut 5.5 X10 3/uL Normal 2.0-7.7 [facility] Comment on above: Performed By: #### L 100.0100 ####[facility] [address] [place], [address] Basophils/100 WBC Auto (Bld) 0.4 % Normal 0-1 [facility] Comment on above: Performed By: #### L 100.0100 ####[facility] [address] [place], [address] Eosinophils/100 WBC Auto (Bld) 4.1 % Normal 0-5 [facility] Comment on above: Performed By: #### L 100.0100 ####[facility] [address] [place], [address] Erythrocyte distribution width Auto Ratio (RBC) 12.3 % Normal 11.6-14.6 [facility] Comment on above: Performed By: #### L 100.0100 ####[facility] [address] [place], [address] Hematocrit Auto Volume Fraction (Bld) 40.8 % Normal 37-47 [facility] Comment on above: Performed By: #### L 100.0100 ####[facility] [address] [place], [address] Hemoglobin mass conc (Bld) 13.6 g/dL Normal 12.0-15.0 [facility] Comment on above: Performed By: #### L 100.0100 ####[facility] [address] [place], [address] IM GRAN % 0.100 % Normal 0.0-0.9 [facility] Comment on above: Result Comment: IG% - Immature Granulocytes (promyelocytes, myelocytes andmetamyelocytes) > 1% indicates that a LEFT SHIFT is Present. Performed By: #### L 100.0100 ####[facility] [address] [place], [address] Lymphocytes Auto #/vol (Bld) 2.72 X10 3/ul Normal 0.83-4.51 [facility] Comment on above: Performed By: #### L 100.0100 ####[facility] [address] [place], [address] Lymphocytes/100 WBC Auto (Bld) 29.6 % Normal 19-41 [facility] Comment on above: Performed By: #### L 100.0100 ####[facility] [address] [place], [address] MCH Auto Entitic mass (RBC) 31.1 pg Normal 27.0-32.0 [facility] Comment on above: Performed By: #### L 100.0100 ####[facility] [address] [place], [address] MCHC Auto mass conc (RBC) 33.3 g/gl Normal 32-36 [facility] Comment on above: Performed By: #### L 100.0100 ####[facility] [address] [place], [address] MCV Auto Entitic volume (RBC) 93.4 fL Normal 81-99 [facility] Comment on above: Performed By: #### L 100.0100 ####[facility] [address] [place], [address] Monocytes/100 WBC Auto (Bld) 5.5 % Normal 0-10 [facility] Comment on above: Performed By: #### L 100.0100 ####[facility] [address] [place], [address] Neutrophils/100 WBC Auto (Bld) 60.3 % Normal 47-70 [facility] Comment on above: Performed By: #### L 100.0100 ####[facility] [address] [place], [address] Platelet mean volume Auto Entitic volume (Bld) 11.9 fL Normal 6.2-12.0 [facility] Comment on above: Performed By: #### L 100.0100 ####[facility] [address] [place], [address] Platelets Auto #/vol (Bld) 203 10*3/uL Normal 150-450 [facility] Comment on above: Performed By: #### L 100.0100 ####[facility] [address] [place], [address] RBC Auto #/vol (Bld) 4.37 M/mm3 Normal 4.2-5.4 [facility] Comment on above: Performed By: #### L 100.0100 ####[facility] [address] [place], [address] RDW SD 41.2 fl Normal 35.1-43.9 [facility] Comment on above: Performed By: #### L 100.0100 ####[facility] [address] [place], [address] WBC Auto #/vol (Bld) 9.2 10*3/uL Normal 4.4-11.0 [facility] Comment on above: Performed By: #### L 100.0100 ####[facility] [address] [place], [address] Comprehensive Metabolic Prof ilon 12-19-2017 A/G 0.9 RATIO Normal 0.9-2.4 [facility] Comment on above: Performed By: #### L 500.4050, L501.9520, L503.6150, L503.6550, L506.0400 ####[facility] [address] [place], [address] Albumin mass conc 3.3 g/dL Normal 3.2-5.0 [facility] Comment on above: Performed By: #### L 500.4050, L501.9520, L503.6150, L503.6550, L506.0400 ####[facility] [address] [place], [address] ALP enzyme act/vol 50 U/L Normal 45-117 [facility] Comment on above: Performed By: #### L 500.4050, L501.9520, L503.6150, L503.6550, L506.0400 ####[facility] [address] [place], [address] ALT enzyme act/vol 17 U/L Normal 13-56 [facility] Comment on above: Performed By: #### L 500.4050, L501.9520, L503.6150, L503.6550, L506.0400 ####[facility] [address] [place], [address] AST enzyme act/vol 8 U/L Low 15-37 [facility] Comment on above: Performed By: #### L 500.4050, L501.9520, L503.6150, L503.6550, L506.0400 ####[facility] [address] [place], [address] Bilirubin mass conc 0.30 mg/dL Normal 0.20-1.00 [facility] Comment on above: Performed By: #### L 500.4050, L501.9520, L503.6150, L503.6550, L506.0400 ####[facility] [address] [place], [address] Calcium mass conc 8.4 mg/dL Low 8.5-10.1 [facility] Comment on above: Performed By: #### L 500.4050, L501.9520, L503.6150, L503.6550, L506.0400 ####[facility] [address] [place], [address] Chloride molar conc 107 mmol/L Normal 98-107 [facility] Comment on above: Performed By: #### L 500.4050, L501.9520, L503.6150, L503.6550, L506.0400 ####[facility] [address] [place], [address] CO2 molar conc 26.0 mmol/L Normal 21.0-32.0 [facility] Comment on above: Performed By: #### L 500.4050, L501.9520, L503.6150, L503.6550, L506.0400 ####[facility] [address] [place], [address] Creatinine mass conc 0.66 mg/dL Normal 0.55-1.02 [facility] Comment on above: Result Comment: The validity of the calculated GFR AND GFRAA in patients over70 years has not been determined. Clinical correlation isessential. Performed By: #### L 500.4050, L501.9520, L503.6150, L503.6550, L506.0400 ####[facility] [address] [place], [address] EST GFR - AA 136 mL/min Normal >60 [facility] Comment on above: Result Comment: Afri can Nigerien GFR Calc Performed By: #### L 500.4050, L501.9520, L503.6150, L503.6550, L506.0400 ####[facility] [address] [place], [address] GAP 9 Normal 5-15 [facility] Comment on above: Performed By: #### L 500.4050, L501.9520, L503.6150, L503.6550, L506.0400 ####[facility] [address] [place], [address] GFR/1.73 sq M predicted among non-blacks MDRD vol rate/area (S/P/Bld) 113 mL/min/{1.73_m2} Normal >60 [facility] Comment on above: Result Comment: Non- GFR Calc Performed By: #### L 500.4050, L501.9520, L503.6150, L503.6550, L506.0400 ####[facility] [address] [place], [address] Globulin Calculated mass conc (S) 3.6 g/dL Normal 2.2-4.2 [facility] Comment on above: Performed By: #### L 500.4050, L501.9520, L503.6150, L503.6550, L506.0400 ####[facility] [address] [place], [address] Glucose mass conc 86 mg/dL Normal 74-106 [facility] Comment on above: Result Comment: Lukas sigala note revised GLUCOSE reference range /02/2018. Performed By: #### L 500.4050, L501.9520, L503.6150, L503.6550, L506.0400 ####[facility] [address] [place], [address] Potassium molar conc 3.9 mmol/L Normal 3.5-5.1 [facility] Comment on above: Performed By: #### L 500.4050, L501.9520, L503.6150, L503.6550, L506.0400 ####[facility] [address] [place], [address] Protein mass conc 6.9 g/dL Normal 6.4-8.2 [facility] Comment on above: Performed By: #### L 500.4050, L501.9520, L503.6150, L503.6550, L506.0400 ####[facility] [address] [place], [address] Sodium molar conc 142 mmol/L Normal 136-145 [facility] Comment on above: Performed By: #### L 500.4050, L501.9520, L503.6150, L503.6550, L506.0400 ####[facility] [address] [place], [address] Urea nitrogen mass conc 12 mg/dL Normal 7-18 [facility] Comment on above: Performed By: #### L 500.4050, L501.9520, L503.6150, L503.6550, L506.0400 ####[facility] [address] [place], [address] Urea nitrogen mass conc (Bld) 18.3 RATIO Normal 10-20 [facility] Comment on above: Performed By: #### L 500.4050, L501.9520, L503.6150, L503.6550, L506.0400 ####[facility] [address] [place], [address] Ferritinon 12-19-2017 FERRITIN 32 ng/mL Normal 8-252 [facility] Comment on above: Performed By: #### L 500.4050, L501.9520, L503.6150, L503.6550, L506.0400 ####[facility] [address] [place], [address] Ironon 12-19-2017 Iron mass conc 121 ug/dL Normal 50-170 [facility] Comment on above: Performed By: #### L 500.4050, L501.9520, L503.6150, L503.6550, L506.0400 ####[facility] [address] [place], [place], [address] T4 Free Directon 12-19-2017 T4 FREE DIRECT 0.93 ng/dL Normal 0.76-1.46 [facility] Comment on above: Performed By: #### L 500.4050, L501.9520, L503.6150, L503.6550, L506.0400 ####[facility] [address] [place], [address] Thyroid Stim Hormone (TSH)on 12-19-2017 Thyrotropin Qn 2.36 uIU/mL Normal 0.358-3.74 [facility] Comment on above: Performed By: #### L 500.4050, L501.9520, L503.6150, L503.6550, L506.0400 ####[facility] [address] [place], [place], [address] Vital Signs Date Time Vital Sign Value Performing Clinician Facility 12-15-2024 08:52-0400 Body mass index (BMI) [Ratio] 48.89 kg/m2 Kin Juan MD Work Phone: [facility] 12-15-2024 08:52-0400 Body weight 125.19 kg Kin Juan MD Work Phone: [facility] 12-15-2024 08:52-0400 Diastolic blood pressure 82 mm[Hg] Kin Juan MD Work Phone: [facility] 12-15-2024 08:52-0400 Systolic blood pressure 136 mm[Hg] Kin Juan MD Work Phone: [facility] 11-18-2024 19:57-0400 Body mass index (BMI) [Ratio] 49.17 kg/m2 Maria Guadalupe Solomon APRN.CNP Work Phone: [facility] 11-18-2024 19:57-0400 Body temperature 97.2 [degF] Maria Guadalupe Tacos MUIR.GAUGE MAKER APPRENTICE Work Phone: [facility] 11-18-2024 19:57-0400 Body weight 125.9 kg Maria Guadalupe Solomon APRN.GAUGE MAKER APPRENTICE Work Phone: [facility] 11-18-2024 19:57-0400 Diastolic blood pressure 82 mm[Hg] Maria Guadalupe Solomon APRN.GAUGE MAKER APPRENTICE Work Phone: [facility] 11-18-2024 19:57-0400 Heart rate 78 /min Maria Guadalupe Solomon APRN.GAUGE MAKER APPRENTICE Work Phone: [facility] 11-18-2024 19:57-0400 Respiratory rate 16 /min Maria Guadalupe Solomon APRN.GAUGE MAKER APPRENTICE Work Phone: [facility] 11-18-2024 19:57-0400 SaO2% (BldA) [Mass fraction] 97 % Maria Guadalupe Solomon APRN.GAUGE MAKER APPRENTICE Work Phone: [facility] 11-18-2024 19:57-0400 Systolic blood pressure 134 mm[Hg] Maria Guadalupe Solomon APRN.GAUGE MAKER APPRENTICE Work Phone: [facility] 09-09-2024 13:15-0400 Body height 160 cm Kin Juan MD Work Phone: [facility] 09-09-2024 13:15-0400 Body mass index (BMI) [Ratio] 49.42 kg/m2 Kin Juan MD Work Phone: [facility] 09-09-2024 13:15-0400 Body weight 126.55 kg Kin Juan MD Work Phone: [facility] 09-09-2024 13:15-0400 Diastolic blood pressure 80 mm[Hg] Kin Juan MD Work Phone: [facility] 09-09-2024 13:15-0400 Systolic blood pressure 134 mm[Hg] Kin Juan MD Work Phone: [facility] 08-17-2024 09:50-0400 Body mass index (BMI) [Ratio] 49.05 kg/m2 Nilson Clutter PA-C Work Phone: [facility] 08-17-2024 09:50-0400 Body temperature 98.4 [degF] Nilson Clutter PA-C Work Phone: [facility] 08-17-2024 09:50-0400 Body weight 127.6 kg Nilson Clutter PA-C Work Phone: [facility] 08-17-2024 09:50-0400 Diastolic blood pressure 82 mm[Hg] Nilson Clutter PA-C Work Phone: [facility] 08-17-2024 09:50-0400 Heart rate 85 /min Nilson Clutter PA-C Work Phone: [facility] 08-17-2024 09:50-0400 Respiratory rate 18 /min Nilson Clutter PA-C Work Phone: [facility] 08-17-2024 09:50-0400 SaO2% (BldA) [Mass fraction] 98 % Nilson Clutter PA-C Work Phone: [facility] 08-17-2024 09:50-0400 Systolic blood pressure 142 mm[Hg] Nilson Clutter PA-C Work Phone: [facility] 07-22-2024 15:54-0500 Body mass index (BMI) [Ratio] 48.79 kg/m2 Richard Boyer APRN.GAUGE MAKER APPRENTICE Work Phone: [facility] 07-22-2024 15:54-0500 Body weight 126.92 kg Richard Ariela DAIRY HUSBANDRY TEACHER.GAUGE MAKER APPRENTICE Work Phone: [facility] 07-22-2024 15:54-0500 Diastolic blood pressure 86 mm[Hg] Richard Boyer DAIRY HUSBANDRY TEACHER.GAUGE MAKER APPRENTICE Work Phone: [facility] 07-22-2024 15:54-0500 Heart rate 88 /min Richard Boyer APRN.GAUGE MAKER APPRENTICE Work Phone: [facility] 07-22-2024 15:54-0500 Respiratory rate 20 /min Richard Boyer DAIRY HUSBANDRY TEACHER.GAUGE MAKER APPRENTICE Work Phone: [facility] 07-22-2024 15:54-0500 SaO2% (BldA) [Mass fraction] 99 % Richard Rajguru DAIRY HUSBANDRY TEACHER.GAUGE MAKER APPRENTICE Work Phone: [facility] 07-22-2024 15:54-0500 Systolic blood pressure 142 mm[Hg] Richard Rajguru DAIRY HUSBANDRY TEACHER.GAUGE MAKER APPRENTICE Work Phone: [facility] 04-01-2024 13:59-0500 Body mass index (BMI) [Ratio] 48.97 kg/m2 Mague Podlogar DAIRY HUSBANDRY TEACHER.GAUGE MAKER APPRENTICE Work Phone: [facility] 04-01-2024 13:59-0500 Body weight 127.4 kg Mague Podlogar DAIRY HUSBANDRY TEACHER.GAUGE MAKER APPRENTICE Work Phone: [facility] 04-01-2024 13:59-0500 Diastolic blood pressure 86 mm[Hg] Mague Podlogar DAIRY HUSBANDRY TEACHER.GAUGE MAKER APPRENTICE Work Phone: [facility] 04-01-2024 13:59-0500 Heart rate 89 /min Mague Podlogar DAIRY HUSBANDRY TEACHER.GAUGE MAKER APPRENTICE Work Phone: [facility] 04-01-2024 13:59-0500 Respiratory rate 18 /min Mague Podlogar DAIRY HUSBANDRY TEACHER.GAUGE MAKER APPRENTICE Work Phone: [facility] 04-01-2024 13:59-0500 SaO2% (BldA) [Mass fraction] 98 % Mague Podlogar DAIRY HUSBANDRY TEACHER.GAUGE MAKER APPRENTICE Work Phone: [facility] 04-01-2024 13:59-0500 Systolic blood pressure 128 mm[Hg] Mague Podlogar DAIRY HUSBANDRY TEACHER.GAUGE MAKER APPRENTICE Work Phone: [facility] 02-05-2024 13:38-0400 Body mass index (BMI) [Ratio] 47.67 kg/m2 Mague Podlogar DAIRY HUSBANDRY TEACHER.GAUGE MAKER APPRENTICE Work Phone: [facility] 02-05-2024 13:38-0400 Body weight 124.01 kg Mague Podlogar DAIRY HUSBANDRY TEACHER.GAUGE MAKER APPRENTICE Work Phone: [facility] 02-05-2024 13:38-0400 Diastolic blood pressure 84 mm[Hg] Mague Podlogar DAIRY HUSBANDRY TEACHER.GAUGE MAKER APPRENTICE Work Phone: [facility] 02-05-2024 13:38-0400 Heart rate 84 /min Mague Podlogar DAIRY HUSBANDRY TEACHER.GAUGE MAKER APPRENTICE Work Phone: [facility] 02-05-2024 13:38-0400 Respiratory rate 16 /min Mague Podlogar DAIRY HUSBANDRY TEACHER.GAUGE MAKER APPRENTICE Work Phone: [facility] 02-05-2024 13:38-0400 SaO2% (BldA) [Mass fraction] 99 % Mague Podlogar DAIRY HUSBANDRY TEACHER.GAUGE MAKER APPRENTICE Work Phone: [facility] 02-05-2024 13:38-0400 Systolic blood pressure 136 mm[Hg] Mague Podlogar DAIRY HUSBANDRY TEACHER.GAUGE MAKER APPRENTICE Work Phone: [facility] 04-04-2023 15:36-0500 Diastolic blood pressure 85 mm[Hg] Mague Podlogar DAIRY HUSBANDRY TEACHER.GAUGE MAKER APPRENTICE Work Phone: [facility] 04-04-2023 15:36-0500 Heart rate 75 /min Mague Podlogar DAIRY HUSBANDRY TEACHER.GAUGE MAKER APPRENTICE Work Phone: [facility] 04-04-2023 15:36-0500 Systolic blood pressure 136 mm[Hg] Mague Podlogar DAIRY HUSBANDRY TEACHER.GAUGE MAKER APPRENTICE Work Phone: [facility] 04-04-2023 15:13-0500 Body weight 124.92 kg Mague Podlogar DAIRY HUSBANDRY TEACHER.GAUGE MAKER APPRENTICE Work Phone: [facility] 04-04-2023 15:13-0500 Respiratory rate 16 /min Mague Podlogar DAIRY HUSBANDRY TEACHER.GAUGE MAKER APPRENTICE Work Phone: [facility] 04-04-2023 15:13-0500 SaO2% (BldA) [Mass fraction] 97 % Mague Podlogar DAIRY HUSBANDRY TEACHER.GAUGE MAKER APPRENTICE Work Phone: [facility] 03-19-2023 15:06-0400 Body height 161.3 cm Kin Juan MD Work Phone: [facility] 03-19-2023 15:06-0400 Body weight 123.2 kg Kin Juan MD Work Phone: [facility] 03-19-2023 15:06-0400 Diastolic blood pressure 98 mm[Hg] Kin Juan MD Work Phone: [facility] 03-19-2023 15:06-0400 Systolic blood pressure 142 mm[Hg] Kin Juan MD Work Phone: [facility] 03-07-2023 15:17-0400 Diastolic blood pressure 101 mm[Hg] Mague Podlogar DAIRY HUSBANDRY TEACHER.GAUGE MAKER APPRENTICE Work Phone: [facility] 03-07-2023 15:17-0400 Heart rate 72 /min Mague Podlogar DAIRY HUSBANDRY TEACHER.GAUGE MAKER APPRENTICE Work Phone: [facility] 03-07-2023 15:17-0400 Systolic blood pressure 155 mm[Hg] Mague Podlogar DAIRY HUSBANDRY TEACHER.GAUGE MAKER APPRENTICE Work Phone: [facility] 03-07-2023 14:48-0400 Body weight 123.47 kg Mague Podlogar DAIRY HUSBANDRY TEACHER.GAUGE MAKER APPRENTICE Work Phone: [facility] 03-07-2023 14:48-0400 Respiratory rate 16 /min Mague Podlogar DAIRY HUSBANDRY TEACHER.GAUGE MAKER APPRENTICE Work Phone: [facility] 03-07-2023 14:48-0400 SaO2% (BldA) [Mass fraction] 99 % Mague Podlogar DAIRY HUSBANDRY TEACHER.GAUGE MAKER APPRENTICE Work Phone: [facility] 01-15-2023 19:24-0400 Body temperature 98.2 [degF] Antoine Luis MD Work Phone: [facility] 01-15-2023 19:24-0400 Body weight 123.74 kg Antoine Luis MD Work Phone: [facility] 01-15-2023 19:24-0400 Diastolic blood pressure 107 mm[Hg] Antoine Luis MD Work Phone: [facility] 01-15-2023 19:24-0400 Heart rate 77 /min Antoine Luis MD Work Phone: [facility] 01-15-2023 19:24-0400 Respiratory rate 20 /min Antoine Luis MD Work Phone: [facility] 01-15-2023 19:24-0400 SaO2% (BldA) [Mass fraction] 99 % Antoine Luis MD Work Phone: [facility] 01-15-2023 19:24-0400 Systolic blood pressure 149 mm[Hg] Antoine Luis MD Work Phone: [facility] 01-08-2023 13:05-0400 Body height 160.6 cm Mague Podlogar DAIRY HUSBANDRY TEACHER.GAUGE MAKER APPRENTICE Work Phone: [facility] 01-08-2023 13:05-0400 Body weight 125.56 kg Mague Podlogar DAIRY HUSBANDRY TEACHER.GAUGE MAKER APPRENTICE Work Phone: [facility] 01-08-2023 13:05-0400 Diastolic blood pressure 90 mm[Hg] Mague Podlogar DAIRY HUSBANDRY TEACHER.GAUGE MAKER APPRENTICE Work Phone: [facility] 01-08-2023 13:05-0400 Heart rate 76 /min Mague Podlogar DAIRY HUSBANDRY TEACHER.GAUGE MAKER APPRENTICE Work Phone: [facility] 01-08-2023 13:05-0400 Respiratory rate 18 /min Mague Podlogar DAIRY HUSBANDRY TEACHER.GAUGE MAKER APPRENTICE Work Phone: [facility] 01-08-2023 13:05-0400 SaO2% (BldA) [Mass fraction] 95 % Mague Podlogar DAIRY HUSBANDRY TEACHER.GAUGE MAKER APPRENTICE Work Phone: [facility] 01-08-2023 13:05-0400 Systolic blood pressure 144 mm[Hg] Mague Podlogar DAIRY HUSBANDRY TEACHER.GAUGE MAKER APPRENTICE Work Phone: [facility] 08-26-2022 19:40-0400 Body height 160 cm ISAC DURESKA DO [facility] 08-26-2022 19:40-0400 Body temperature 98.06 [degF] ISAC DURESKA DO [facility] 08-26-2022 19:40-0400 Body weight 90.9 kg ISAC DURESKA DO [facility] 08-26-2022 19:40-0400 Diastolic Blood Pressure Non-Invasive 75 1 ISAC RATNAESKA DO [facility] 08-26-2022 19:40-0400 Heart rate 92 /min ISAC DURESKA DO [facility] 08-26-2022 19:40-0400 Respiratory rate 18 /min ISAC DURESKA DO [facility] 08-26-2022 19:40-0400 Systolic Blood Pressure Non-Invasive 109 1 ISAC DURESKA DO [facility] 07-21-2022 12:49-0500 Body temperature 99.3 [degF] Krislyn Aberegg PA Work Phone: [facility] 07-21-2022 12:49-0500 Body weight 125.74 kg Krislyn Aberegg PA Work Phone: [facility] 07-21-2022 12:49-0500 Diastolic blood pressure 66 mm[Hg] Krislyn Aberegg PA Work Phone: [facility] 07-21-2022 12:49-0500 Heart rate 89 /min Krislyn Aberegg PA Work Phone: [facility] 07-21-2022 12:49-0500 Respiratory rate 20 /min Krislyn Aberegg PA Work Phone: [facility] 07-21-2022 12:49-0500 SaO2% (BldA) [Mass fraction] 98 % Ta Aberegg PA Work Phone: [facility] 07-21-2022 12:49-0500 Systolic blood pressure 110 mm[Hg] Ta Lylegg PA Work Phone: [facility] 05-24-2022 11:00-0500 Heart rate 78 /min Alicia Wang MD Work Phone: [facility] 05-24-2022 11:00-0500 Respiratory rate 18 /min Alicia Wang MD Work Phone: [facility] 05-24-2022 11:00-0500 SaO2% (BldA) [Mass fraction] 100 % Alicia Wang MD Work Phone: [facility] 05-24-2022 10:50-0500 Diastolic blood pressure 57 mm[Hg] Alicia Wang MD Work Phone: [facility] 05-24-2022 10:50-0500 Systolic blood pressure 104 mm[Hg] Alicia Wang MD Work Phone: [facility] 05-24-2022 10:30-0500 Body temperature 97.2 [degF] Alicia Wang MD Work Phone: [facility] 05-24-2022 09:37-0500 Body height 160 cm Alicia Wang MD Work Phone: [facility] 05-24-2022 09:37-0500 Body weight 129.28 kg Alicia Wang MD Work Phone: [facility] 02-17-2022 17:08-0400 Body temperature 97.59 [degF] Sena Rueda APRN.GAUGE MAKER APPRENTICE Work Phone: [facility] 02-17-2022 17:08-0400 Body weight 131.18 kg Sena Rueda DAIRY HUSBANDRY TEACHER.GAUGE MAKER APPRENTICE Work Phone: [facility] 02-17-2022 17:08-0400 Diastolic blood pressure 78 mm[Hg] Sena Praisler-Wood DAIRY HUSBANDRY TEACHER.GAUGE MAKER APPRENTICE Work Phone: [facility] 02-17-2022 17:08-0400 Heart rate 86 /min Sena Praisler-Wood DAIRY HUSBANDRY TEACHER.GAUGE MAKER APPRENTICE Work Phone: [facility] 02-17-2022 17:08-0400 Respiratory rate 20 /min Sena Praisler-Wood DAIRY HUSBANDRY TEACHER.GAUGE MAKER APPRENTICE Work Phone: [facility] 02-17-2022 17:08-0400 SaO2% (BldA) [Mass fraction] 98 % Sena Praisler-Wood DAIRY HUSBANDRY TEACHER.GAUGE MAKER APPRENTICE Work Phone: [facility] 02-17-2022 17:08-0400 Systolic blood pressure 136 mm[Hg] Sena Praisler-Wood DAIRY HUSBANDRY TEACHER.GAUGE MAKER APPRENTICE Work Phone: [facility] 02-08-2022 15:21-0400 Body temperature 98.71 [degF] Radha Alcantara DAIRY HUSBANDRY TEACHER.GAUGE MAKER APPRENTICE Work Phone: [facility] 02-08-2022 15:21-0400 Body weight 130.91 kg Radha Alcantara DAIRY HUSBANDRY TEACHER.GAUGE MAKER APPRENTICE Work Phone: [facility] 02-08-2022 15:21-0400 Diastolic blood pressure 82 mm[Hg] Radha Alcantara DAIRY HUSBANDRY TEACHER.GAUGE MAKER APPRENTICE Work Phone: [facility] 02-08-2022 15:21-0400 Heart rate 97 /min Radha Alcantara DAIRY HUSBANDRY TEACHER.GAUGE MAKER APPRENTICE Work Phone: [facility] 02-08-2022 15:21-0400 Respiratory rate 20 /min Radha Alcantara DAIRY HUSBANDRY TEACHER.GAUGE MAKER APPRENTICE Work Phone: [facility] 02-08-2022 15:21-0400 SaO2% (BldA) [Mass fraction] 97 % Radha Alcantara DAIRY HUSBANDRY TEACHER.GAUGE MAKER APPRENTICE Work Phone: [facility] 02-08-2022 15:21-0400 Systolic blood pressure 126 mm[Hg] Radha Alcantara DAIRY HUSBANDRY TEACHER.GAUGE MAKER APPRENTICE Work Phone: [facility] 02-02-2022 11:34-0400 Body weight 132.45 kg Richard Rajguru DAIRY HUSBANDRY TEACHER.GAUGE MAKER APPRENTICE Work Phone: [facility] 02-02-2022 11:34-0400 Diastolic blood pressure 70 mm[Hg] Richard Rajguru DAIRY HUSBANDRY TEACHER.GAUGE MAKER APPRENTICE Work Phone: [facility] 02-02-2022 11:34-0400 Heart rate 70 /min Richard Rajguru DAIRY HUSBANDRY TEACHER.GAUGE MAKER APPRENTICE Work Phone: [facility] 02-02-2022 11:34-0400 Systolic blood pressure 138 mm[Hg] Richard Rajguru DAIRY HUSBANDRY TEACHER.GAUGE MAKER APPRENTICE Work Phone: [facility] 01-31-2022 15:13-0400 Body height 161.3 cm Mihaela Prasad DAIRY HUSBANDRY TEACHER.GAUGE MAKER APPRENTICE Work Phone: [facility] 01-31-2022 15:13-0400 Body weight 132.45 kg Mihaela Prasad DAIRY HUSBANDRY TEACHER.GAUGE MAKER APPRENTICE Work Phone: [facility] 01-31-2022 15:13-0400 Diastolic blood pressure 64 mm[Hg] Mihaela Prasad DAIRY HUSBANDRY TEACHER.GAUGE MAKER APPRENTICE Work Phone: [facility] 01-31-2022 15:13-0400 Heart rate 102 /min Mihaela Prasad DAIRY HUSBANDRY TEACHER.GAUGE MAKER APPRENTICE Work Phone: [facility] 01-31-2022 15:13-0400 Systolic blood pressure 102 mm[Hg] Mihaela Prasad DAIRY HUSBANDRY TEACHER.GAUGE MAKER APPRENTICE Work Phone: [facility] 01-25-2022 17:00-0400 Body weight 133.63 kg Mague Podlogar DAIRY HUSBANDRY TEACHER.GAUGE MAKER APPRENTICE Work Phone: [facility] 01-25-2022 17:00-0400 Diastolic blood pressure 80 mm[Hg] Mague Podlogar DAIRY HUSBANDRY TEACHER.GAUGE MAKER APPRENTICE Work Phone: [facility] 01-25-2022 17:00-0400 Heart rate 107 /min Mague Podlogar DAIRY HUSBANDRY TEACHER.GAUGE MAKER APPRENTICE Work Phone: [facility] 01-25-2022 17:00-0400 Respiratory rate 18 /min Mague Podlogar DAIRY HUSBANDRY TEACHER.GAUGE MAKER APPRENTICE Work Phone: [facility] 01-25-2022 17:00-0400 SaO2% (BldA) [Mass fraction] 99 % Mague Podlogar DAIRY HUSBANDRY TEACHER.GAUGE MAKER APPRENTICE Work Phone: [facility] 01-25-2022 17:00-0400 Systolic blood pressure 132 mm[Hg] Mague Podlogar DAIRY HUSBANDRY TEACHER.GAUGE MAKER APPRENTICE Work Phone: [facility] 01-11-2022 10:29-0400 Diastolic blood pressure 92 mm[Hg] Ashwin Ballesteros MD Work Phone: [facility] 01-11-2022 10:29-0400 Heart rate 119 /min Ashwin Ballesteros MD Work Phone: [facility] 01-11-2022 10:29-0400 SaO2% (BldA) [Mass fraction] 98 % Ashwin Ballesteros MD Work Phone: [facility] 01-11-2022 10:29-0400 Systolic blood pressure 134 mm[Hg] Ashwin Ballesteros MD Work Phone: [facility] 01-11-2022 08:02-0400 Body temperature 98.01 [degF] Ashwin Ballesteros MD Work Phone: [facility] 01-11-2022 08:02-0400 Respiratory rate 16 /min Ashwin Ballesteros MD Work Phone: [facility] 01-08-2022 01:52-0400 Body height 160 cm Ashwin Ballesteros MD Work Phone: [facility] 01-08-2022 01:52-0400 Body mass index (BMI) [Ratio] 51.37 kg/m2 Ashwin Ballesteros MD Work Phone: [facility] 01-08-2022 01:52-0400 Body weight 131.54 kg Ashwin Ballesteros MD Work Phone: [facility] 12-07-2021 14:24-0400 Body height 161.3 cm Richard Boyer DAIRY HUSBANDRY TEACHER.GAUGE MAKER APPRENTICE Work Phone: [facility] 12-07-2021 14:24-0400 Body weight 132.9 kg Richard Boyer DAIRY HUSBANDRY TEACHER.GAUGE MAKER APPRENTICE Work Phone: [facility] 12-07-2021 14:24-0400 Diastolic blood pressure 62 mm[Hg] Richard Boyer DAIRY HUSBANDRY TEACHER.GAUGE MAKER APPRENTICE Work Phone: [facility] 12-07-2021 14:24-0400 Systolic blood pressure 124 mm[Hg] Richard Boyer DAIRY HUSBANDRY TEACHER.GAUGE MAKER APPRENTICE Work Phone: [facility] 08-31-2021 13:38-0400 Body weight 128.46 kg Mague Podlogar DAIRY HUSBANDRY TEACHER.GAUGE MAKER APPRENTICE Work Phone: [facility] 08-31-2021 13:38-0400 Diastolic blood pressure 90 mm[Hg] Mague Podlogar DAIRY HUSBANDRY TEACHER.GAUGE MAKER APPRENTICE Work Phone: [facility] 08-31-2021 13:38-0400 Heart rate 89 /min Mague Podlogar DAIRY HUSBANDRY TEACHER.GAUGE MAKER APPRENTICE Work Phone: [facility] 08-31-2021 13:38-0400 SaO2% (BldA) [Mass fraction] 95 % Mague Podlogar DAIRY HUSBANDRY TEACHER.GAUGE MAKER APPRENTICE Work Phone: [facility] 08-31-2021 13:38-0400 Systolic blood pressure 140 mm[Hg] Mague Podlogar DAIRY HUSBANDRY TEACHER.GAUGE MAKER APPRENTICE Work Phone: [facility] Encounters Encounter Date Encounter Type Care Provider Facility Start: 12-22-2024 End: 12-22-2024 ambulatory RICHARD BOYER Facility:[facility] Start: 12-15-2024 End: 12-15-2024 Patient encounter procedure Kin Juan MD Work Phone: OB/Gynecology Comment on above: Cervical high risk H PV (human papillomavirus) test positive (Primary Dx) Start: 12-15-2024 End: 12-15-2024 ambulatory KIN ANABELPAOLA JUAN Facility:[facility] Start: 11-25-2024 End: 11-25-2024 ambulatory MIRELLA NESS Facility:[facility] Start: 11-20-2024 End: 11-20-2024 Follow-up encounter Maria Guadalupe Solomon APRN.GAUGE MAKER APPRENTICE Work Phone: [facility] Start: 11-18-2024 End: 11-18-2024 ambulatory LAURO QUARLES Facility:[facility] Start: 11-18-2024 End: 11-18-2024 Patient encounter procedure Maria Guadalupe Solomon APRN.GAUGE MAKER APPRENTICE Work Phone: [facility] Comment on above: Urinary frequency (P rimary Dx) Start: 11-13-2024 End: 11-13-2024 ambulatory MIRELLA NESS Facility:[facility] Start: 11-05-2024 End: 11-05-2024 ambulatory RICHARD BOYER Facility:[facility] Start: 11-05-2024 End: 11-05-2024 [facility] Richard Boyer APRN.GAUGE MAKER APPRENTICE Work Phone: Psychiatry Comment on above: Bipolar 1 disorder, mixed, moderate (HCC) (Primary Dx); Insomnia due to other mental disorder; Psychosocial stressors; Encounter for long-term (current) use of medications Start: 10-31-2024 End: 10-31-2024 Refill Richard Boyer APRN.GAUGE MAKER APPRENTICE Work Phone: Psychiatry Comment on above: Refill Request Start: 10-30-2024 End: 10-31-2024 Refill Lauro Quarles MD Work Phone: [facility] [place] Comment on above: Refill Request Start: 10-28-2024 End: 10-28-2024 ambulatory MIRELLA NESS Facility:[facility] Start: 10-07-2024 End: 10-07-2024 ambulatory MIRELLA NESS Facility:[facility] Start: 09-29-2024 End: 10-01-2024 Refill Richard Boyer APRN.GAUGE MAKER APPRENTICE Work Phone: Psychiatry Comment on above: Refill Request Start: 09-23-2024 End: 09-23-2024 ambulatory MIRELLA NESS Facility:[facility] Start: 09-19-2024 End: 09-19-2024 ambulatory Richard Boyer DAIRY HUSBANDRY TEACHER.GAUGE MAKER APPRENTICE Work Phone: Psychiatry Comment on above: NO SHOW (Primary Dx) Start: 09-19-2024 End: 09-19-2024 Telemedicine consultation with patient iRchard Boyer APRN.GAUGE MAKER APPRENTICE Work Phone: Psychiatry Start: 09-16-2024 End: 09-16-2024 ambulatory Richard Boyer DAIRY HUSBANDRY TEACHER.GAUGE MAKER APPRENTICE Work Phone: Psychiatry Comment on above: NO SHOW (Primary Dx) Start: 09-16-2024 End: 09-16-2024 Telemedicine consultation with patient Richard Boyer APRN.GAUGE MAKER APPRENTICE Work Phone: Psychiatry Start: 09-16-2024 End: 09-16-2024 Telephone encounter Kin Juan MD Work Phone: OB/Gynecology Comment on above: Results Start: 09-10-2024 End: 11-10-2024 Follow-up encounter Candice Valdez APRN.GAUGE MAKER APPRENTICE Work Phone: OB/Gynecology Start: 09-09-2024 End: 09-09-2024 Patient encounter procedure Kin Juan MD Work Phone: OB/Gynecology Comment on above: Encounter for gyneco logical examination (general) (routine) without abnormal findings (Primary Dx); Screen for STD (sexually transmitted disease); Encounter for screening for malignant neoplasm of cervix; Special screening examination for human papillomavirus (HPV); History of human papillomavirus infection; IUD (intrauterine device) in place Start: 09-09-2024 End: 09-09-2024 Patient encounter status Kin Juan MD Work Phone: [facility] Start: 09-09-2024 End: 09-09-2024 ambulatory KIN JUAN Facility:[facility] Start: 09-09-2024 Encounter for gynecological examination (general) (routine) without abnormal findings KIN JUAN [facility] Start: 08-29-2024 End: 09-01-2024 E-mail encounter from caregiver Richard Chase Boyer APRN.CNP Work Phone: Psychiatry Start: 08-29-2024 End: 09-01-2024 Patient encounter procedure Richard Boyer APRN.CNP Work Phone: Psychiatry Comment on above: Appointment Start: 08-27-2024 End: 08-27-2024 ambulatory MIRELLA NESS Facility:[facility] Start: 08-17-2024 End: 08-17-2024 ambulatory LAURO QUARLES Facility:[facility] Start: 08-17-2024 End: 08-17-2024 Office outpatient visit 15 minutes Nilson Morales PA-C Work Phone: [facility] Comment on above: Tick bite of right f oot, initial encounter (Primary Dx) Start: 08-13-2024 End: 08-13-2024 ambulatory MIRELLA NESS Facility:[facility] Start: 08-11-2024 End: 08-11-2024 ambulatory RICHARD BOYER Facility:[facility] Start: 08-11-2024 End: 08-11-2024 [facility] Richard Boyer APRN.CNP Work Phone: Psychiatry Comment on above: Bipolar 1 disorder, mixed, moderate (HCC) (Primary Dx); Encounter for long-term (current) use of medications; Insomnia due to other mental disorder; Psychosocial stressors; Marijuana use, continuous; Weight gain due to medication; Current nicotine use; FELIPE (generalized anxiety disorder) Start: 08-01-2024 End: 08-04-2024 Telephone encounter Lauro Quarles MD Work Phone: [facility] [place] Comment on above: Patient Question Start: 07-31-2024 End: 07-31-2024 ambulatory MIRELLA NESS Facility:[facility] Start: 07-23-2024 End: 07-23-2024 ambulatory Mague Us DAIRY HUSBANDRY TEACHER.GAUGE MAKER APPRENTICE Work Phone: [facility] Comment on above: Left-sided weakness (Primary Dx); Psoriasis (a type of skin inflammation); Chronic pain of both hips Start: 07-23-2024 End: 07-23-2024 Telemedicine consultation with patient Mague Abeba MUIR.GAUGE MAKER APPRENTICE Work Phone: [facility] [place] Start: 07-23-2024 End: 07-23-2024 ambulatory MIRELLA NESS Facility:[facility] Start: 07-22-2024 End: 07-22-2024 ambulatory RICHARD BOYER Facility:[facility] Start: 07-22-2024 End: 07-22-2024 Office outpatient visit 40 minutes Richard Boyer APRN.GAUGE MAKER APPRENTICE Work Phone: Psychiatry Comment on above: Encounter for long-t erm (current) use of medications (Primary Dx); FELIPE (generalized anxiety disorder); Bipolar 1 disorder, mixed, moderate (HCC); Weight gain due to medication; Marijuana use, continuous; Current nicotine use; Insomnia due to other mental disorder; Psychosocial stressors Start: 07-11-2024 End: 07-11-2024 Refill Lauro Quarles MD Work Phone: [facility] Comment on above: Refill Request Start: 07-02-2024 End: 07-02-2024 ambulatory MIRELLA NESS Facility:[facility] Start: 06-20-2024 End: 06-23-2024 ambulatory Mague Us DAIRY HUSBANDRY TEACHER.GAUGE MAKER APPRENTICE Work Phone: [facility] [place] Comment on above: Acyclovir Start: 06-18-2024 End: 06-18-2024 ambulatory MIRELLA NESS Facility:[facility] Start: 06-13-2024 End: 06-13-2024 Telephone encounter Richard Boyer APRN.GAUGE MAKER APPRENTICE Work Phone: Psychiatry Comment on above: Patient Question; Jessie tient Update Start: 06-10-2024 End: 06-10-2024 Telephone encounter Richard Boyer APRN.GAUGE MAKER APPRENTICE Work Phone: Psychiatry Comment on above: PA questions/Time se nsitive Start: 06-09-2024 End: 06-09-2024 ambulatory RICHARD BOYER Facility:[facility] Start: 06-09-2024 End: 06-09-2024 [facility] Richard Boyer APRN.GAUGE MAKER APPRENTICE Work Phone: Psychiatry Comment on above: Bipolar 1 disorder, mixed, moderate (HCC) (Primary Dx); FELIPE (generalized anxiety disorder); Encounter for long-term (current) use of medications; Weight gain due to medication; Marijuana use, continuous; Current nicotine use; Insomnia due to other mental disorder; Medication side effect, subsequent encounter Start: 06-04-2024 End: 06-04-2024 ambulatory [facility] Facility:[facility] Start: 05-31-2024 End: 06-02-2024 Refill Richard Boyer APRN.GAUGE MAKER APPRENTICE Work Phone: Psychiatry Comment on above: Refill Request Start: 05-07-2024 End: 05-07-2024 ambulatory [facility] Facility:[facility] Start: 04-29-2024 End: 04-29-2024 ambulatory [facility] Facility[facility] Start: 04-16-2024 End: 04-16-2024 Refill Richard Boyer APRN.GAUGE MAKER APPRENTICE Work Phone: Psychiatry Comment on above: Refill Request Start: 04-10-2024 End: 04-11-2024 Refill Lauro Quarles MD Work Phone: [facility] Comment on above: Refill Request Start: 04-09-2024 End: 04-09-2024 ambulatory [facility] Facility:[facility] Start: 04-02-2024 End: 04-03-2024 Telephone encounter Lauro Quarles MD Work Phone: [facility] Comment on above: Results Start: 04-01-2024 End: 04-01-2024 Patient encounter procedure Mague Us APRN.CNP Work Phone: [facility] Comment on above: Annual physical exam (Primary Dx); Obesity, Class III, BMI 40-49.9 (morbid obesity) (HCC); Hypertension, essential; Hyperlipidemia, mixed; Bipolar 2 disorder (HCC); FELIPE (generalized anxiety disorder) Start: 04-01-2024 End: 04-02-2024 ambulatory Richard Boyer APRN.CNP Work Phone: Psychiatry Comment on above: Busperone Start: 03-25-2024 End: 03-31-2024 ambulatory [facility] Facility:[facility] Start: 03-12-2024 End: 03-12-2024 [facility] Facility:[facility] Start: 03-10-2024 End: 03-11-2024 Get Medical Advice Mague Us APRN.VICTOR M Work Phone: [facility] Comment on above: Refill Start: 03-03-2024 End: 03-03-2024 Telephone encounter Richard Boyer APRN.CNP Work Phone: Psychiatry Comment on above: report on medication Start: 02-27-2024 End: 02-27-2024 ambulatory [facility] Facility:[facility] Start: 02-25-2024 End: 02-25-2024 Telephone encounter Richard Boyer APRN.CNP Work Phone: Psychiatry Comment on above: Patient Update; Medi cation Problem Start: 02-19-2024 End: 02-19-2024 Patient encounter procedure Jeremy Metz MA [facility] Comment on above: Population Health Na vigation Outreach ([facility]) Bipolar 1 disorder, mixed, moderate (HCC) (Primary Dx); FELIPE (generalized anxiety disorder); Weight gain due to medication; Medical marijuana use; Current nicotine use; Encounter for long-term (current) use of medications Start: 02-19-2024 End: 02-19-2024 Telemedicine consultation with patient Richard Boyer APRN.CNP Work Phone: Psychiatry Start: 02-19-2024 End: 02-19-2024 ambulatory Jeremy Metz MA [facility] Start: 02-15-2024 End: 02-15-2024 ambulatory Jeremy Metz MA [facility] Start: 02-15-2024 End: 02-15-2024 Patient encounter procedure Jeremy Metz MA [facility] Comment on above: Erroneous encounter- disregard Start: 02-14-2024 End: 02-14-2024 Telephone encounter Lauro Quarles MD Work Phone: [facility] [place] Comment on above: Results Start: 02-14-2024 End: 02-14-2024 ambulatory LAURO QUARLES Facility:[facility] Start: 02-14-2024 End: 02-14-2024 Nursing evaluation of patient and report Mi Nurse Work Phone: [facility] [place] Comment on above: Screening-pulmonary TB (Primary Dx) Start: 02-13-2024 End: 02-13-2024 ambulatory MIRELLA NESS Facility:[facility] Start: 02-12-2024 End: 02-12-2024 Nursing evaluation of patient and report Mi Nurse Work Phone: [facility] [place] Comment on above: Screening-pulmonary TB (Primary Dx) Start: 02-12-2024 End: 02-12-2024 ambulatory LAURO QUARLES Facility:[facility] Start: 02-11-2024 End: 02-11-2024 Telephone encounter Lauro Quarles MD Work Phone: [facility] [place] Comment on above: Orders Start: 02-08-2024 End: 02-08-2024 ambulatory LAURO QUARLES Facility:[facility] Start: 02-08-2024 End: 02-08-2024 Nursing evaluation of patient and report Mi Nurse Work Phone: [facility] [place] Comment on above: Screening-pulmonary TB (Primary Dx) Start: 02-06-2024 End: 02-06-2024 ambulatory RICHARD BOYER Facility:[facility] Start: 02-05-2024 End: 02-05-2024 Subsequent hospital visit by physician Xr [facility] Work Phone: Radiology Comment on above: SOB (shortness of br eath) [R06.02] Start: 02-05-2024 End: 02-05-2024 Telephone encounter Mague Us APRN.GAUGE MAKER APPRENTICE Work Phone: [facility] [place] Comment on above: Results Start: 02-05-2024 End: 02-05-2024 Patient encounter procedure Mague Us APRN.GAUGE MAKER APPRENTICE Work Phone: [facility] [place] Comment on above: SOB (shortness of br eath) (Primary Dx); Wheezing; Screening-pulmonary TB; Tobacco use Start: 02-05-2024 End: 02-05-2024 ambulatory AMGUE BAEZALOGJEWELS Facility:[facility] Start: 02-02-2024 End: 02-04-2024 Refill Caitie Wetzel PA-C Work Phone: Gastroenterology Comment on above: Med Change Request Start: 01-30-2024 End: 02-01-2024 Telephone encounter Richard Boyer APRN.CNP Work Phone: Family [facility] [place] Comment on above: Lab Orders Start: 01-29-2024 End: 01-29-2024 Telephone encounter Richard Boyer APRN.CNP Work Phone: [facility] [place] Comment on above: Appointment Start: 01-29-2024 End: 01-29-2024 ambulatory MIRELLA NESS Facility:[facility] Start: 01-25-2024 End: 01-29-2024 Refill Richard Boyer APRN.CNP Work Phone: Psychiatry Comment on above: Refill Request Start: 01-02-2024 Refill Lauro Quarles MD Work Phone: [facility] [place] Comment on above: Refill Request Start: 12-21-2023 End: 12-21-2023 Telemedicine consultation with patient Caitie Wetzel PA-C Work Phone: Gastroenterology Start: 12-21-2023 End: 12-21-2023 ambulatory Caitie Wetzel PA-C Work Phone: Gastroenterology Comment on above: Why? Gastroesophageal ref lux disease, unspecified whether esophagitis present (Primary Dx) Start: 12-03-2023 [facility]ulatory [facility] Start: 12-03-2023 Patient encounter procedure Jeremy Metz MA [facility] Comment on above: Population Health Na vigation Outreach ([facility] CURRENT ROSTER workbench - AWV, Care gaps, HCC gap closure - [facility] [facility]) Start: 11-26-2023 End: 11-26-2023 ambulatory Mague Podlogar DAIRY HUSBANDRY TEACHER.GAUGE MAKER APPRENTICE Work Phone: [facility] [place] Comment on above: Incontinence in fema le (Primary Dx) Start: 11-26-2023 End: 11-26-2023 Telemedicine consultation with patient Mague Podlogar DAIRY HUSBANDRY TEACHER.GAUGE MAKER APPRENTICE Work Phone: [facility] [place] Start: 11-26-2023 End: 11-26-2023 Patient encounter procedure Mague Podlogar DAIRY HUSBANDRY TEACHER.GAUGE MAKER APPRENTICE Work Phone: [facility] [place] Comment on above: APPOINTMENT CANCELLE D (Primary Dx) Start: 11-25-2023 Refill Lauro Quarles MD Work Phone: [facility] [place] Comment on above: Refill Request Start: 11-23-2023 Refill Richard stauffer DAIRY HUSBANDRY TEACHER.GAUGE MAKER APPRENTICE Work Phone: Psychiatry Comment on above: Refill Request Start: 11-02-2023 End: 11-02-2023 [facility] Richard Boyer DAIRY HUSBANDRY TEACHER.GAUGE MAKER APPRENTICE Work Phone: Psychiatry Comment on above: Bipolar 2 disorder ( HCC) (Primary Dx); FELIPE (generalized anxiety disorder); Marijuana use; Weight gain due to medication; Grief reaction Start: 10-16-2023 Refill Richard stauffer DAIRY HUSBANDRY TEACHER.GAUGE MAKER APPRENTICE Work Phone: Psychiatry Comment on above: Refill Request Start: 09-27-2023 ambulatory Sade Florian MA vigate [facility] Start: 09-27-2023 Patient encounter procedure Sade Wynnban PAZ [facility] Comment on above: Population Health Na vigation Outreach ([facility] ) Refill Request Start: 08-10-2023 End: 08-10-2023 [facility] Richard Boyer DAIRY HUSBANDRY TEACHER.GAUGE MAKER APPRENTICE Work Phone: Psychiatry Comment on above: Bipolar 2 disorder ( HCC) (Primary Dx); FELIPE (generalized anxiety disorder); Medical marijuana use; Encounter for long-term (current) use of medications; Weight gain due to medication Start: 07-21-2023 Refill Richard Jones u DAIRY HUSBANDRY TEACHER.GAUGE MAKER APPRENTICE Work Phone: Psychiatry Comment on above: Refill Request Start: 07-11-2023 Telephone encounter Mirella Ruby PSYD Work Phone: Psychiatry Comment on above: Appointment Start: 06-26-2023 Refill Lauro Quarles MD Work Phone: Family Medicine [place] Comment on above: Refill Request Start: 05-03-2023 Refill Richard Jones u DAIRY HUSBANDRY TEACHER.GAUGE MAKER APPRENTICE Work Phone: Psychiatry Comment on above: Refill Request Start: 04-04-2023 End: 04-04-2023 Patient encounter procedure Mague Podlogjewels DAIRY HUSBANDRY TEACHER.GAUGE MAKER APPRENTICE Work Phone: [facility] [place] Comment on above: Primary hypertension (Primary Dx) Start: 03-23-2023 ambulatory Lauro Quarles MD Work Phone: [facility] Comment on above: Allied Health Visit (Medication Adherence Outreach ) Start: 03-19-2023 End: 03-19-2023 Patient encounter procedure Kin Juan MD Work Phone: OB/Gynecology Comment on above: Encounter for gyneco logical examination without abnormal finding (Primary Dx); Encounter for screening for malignant neoplasm of cervix; Special screening examination for human papillomavirus (HPV); Screening examination for STD (sexually transmitted disease); Vaginal discharge Start: 03-19-2023 End: 03-19-2023 Patient encounter status Kin Juan MD Work Phone: [facility] Start: 03-19-2023 Telephone encounter Kimberley Ryan galvan BL[employer]STITCH LAPEL PADDER Work Phone: Endocrinology Comment on above: Ambulatory Social Lucas rk Start: 03-07-2023 End: 03-07-2023 Patient encounter procedure Mague Us APRN.GAUGE MAKER APPRENTICE Work Phone: [facility] [place] Comment on above: Hypertension, essent ial (Primary Dx); Cold sore; Psoriasis (a type of skin inflammation) Start: 03-06-2023 End: 03-06-2023 ambulatory Odessa Pittgermán ANDINO Work Phone: [facility] [employer] Comment on above: Obesity, Class III, BMI 40-49.9 (morbid obesity) (HCC) (Primary Dx); Weight gain due to medication; Prediabetes; BMI 45.0-49.9, adult (HCC) Start: 03-06-2023 End: 03-06-2023 Telemedicine consultation with patient Odessa Pope RD Work Phone: [facility] Start: 03-06-2023 Telephone encounter Mague hernandez APRN.GAUGE MAKER APPRENTICE Work Phone: Internal Medicine [place] Comment on above: Appointment Start: 02-22-2023 Telephone encounter Kimberley Ryan galvan [employer]DER Work Phone: Endocrinology Comment on above: Ambulatory Social Lucas case Start: 02-12-2023 End: 02-12-2023 [facility] Richard Boyer DAIRY HUSBANDRY TEACHER.GAUGE MAKER APPRENTICE Work Phone: Psychiatry Comment on above: Encounter for long-t erm (current) use of medications (Primary Dx); Bipolar 2 disorder (HCC); FELIPE (generalized anxiety disorder); Weight gain due to medication Start: 02-07-2023 Telephone encounter Chris choe Manager Front Office Endocrinology & [facility] [place] Comment on above: Appointment Start: 02-03-2023 ambulatory Mague Us APRN.GAUGE MAKER APPRENTICE Work Phone: Family [facility] [place] Comment on above: I'm confused. Start: 01-23-2023 Telephone encounter Alvarez Quarles MD Work Phone: [facility] Comment on above: Forms (Health Cleara nce Form ) Start: 01-17-2023 End: 01-17-2023 ambulatory Caitie Singhregis HILLC Work Phone: Gastroenterology Comment on above: Gastroesophageal ref lux disease, unspecified whether esophagitis present (Primary Dx) Start: 01-17-2023 End: 01-17-2023 Telemedicine consultation with patient Caitie Ramospebbles PHAM Work Phone: [facility] Start: 01-15-2023 End: 01-15-2023 Patient encounter procedure Antoine Luis MD Work Phone: [facility] Comment on above: URI, acute (Primary Dx); Exposure to COVID-19 virus Start: 01-15-2023 End: 01-15-2023 ambulatory Radha Barlow PT [facility] Physical Therapy Comment on above: Acute bilateral low back pain without sciatica Start: 01-11-2023 Telephone encounter Alvarez Quarles MD Work Phone: [facility] Comment on above: Patient Question Start: 01-08-2023 End: 01-08-2023 Patient encounter procedure Mague Us APRN.GAUGE MAKER APPRENTICE Work Phone: [facility] Comment on above: Primary hypertension (Primary Dx); Screening-pulmonary TB; Hyperlipidemia, mixed; Obesity, Class III, BMI >= 40; Bipolar 2 disorder (HCC) Start: 12-29-2022 Refill Edwina Dina n PA-C [facility] Comment on above: Refill Request Start: 12-24-2022 Refill Edwina Dina n PA-C Work Phone[facility] Comment on above: Refill Request Start: 12-21-2022 ambulatory Elida Davis Work Phone: Endocrinology Comment on above: Ozimpic fear Start: 11-06-2022 Telephone encounter Richard gonsales APRN.GAUGE MAKER APPRENTICE Work Phone: Psychiatry Comment on above: Telephone Call Start: 10-24-2022 Telephone encounter Richard gonsales APRN.GAUGE MAKER APPRENTICE Work Phone: [facility] [place] Comment on above: Patient Update Start: 10-20-2022 Refill Edwina mac PA-C Work Phone: [facility] Comment on above: Refill Request Start: 09-18-2022 End: 09-18-2022 ambulatory Mague Podlogar DAIRY HUSBANDRY TEACHER.GAUGE MAKER APPRENTICE Work Phone: [facility] [place] Comment on above: Acute bilateral low back pain without sciatica (Primary Dx) Start: 09-18-2022 End: 09-18-2022 Telemedicine consultation with patient Mague Podlogar DAIRY HUSBANDRY TEACHER.GAUGE MAKER APPRENTICE Work Phone: [facility] [place] Start: 09-15-2022 ambulatory Mague Podlogar DAIRY HUSBANDRY TEACHER.GAUGE MAKER APPRENTICE Work Phone: [facility] [place] Comment on above: Back pain Start: 09-01-2022 ambulatory Mague Podlogar DAIRY HUSBANDRY TEACHER.GAUGE MAKER APPRENTICE Work Phone: [facility] [place] Comment on above: pathces Start: 08-26-2022 End: 08-27-2022 Emergency department patient visit ISAC DAVILA DO Facility:B Start: 08-26-2022 End: 08-26-2022 Emergency department patient visit ISAC BUSTAMANTE [facility] Start: 08-09-2022 Telephone encounter Richard gonsales DAIRY HUSBANDRY TEACHER.GAUGE MAKER APPRENTICE Work Phone: [facility] [place] Comment on above: Orders Start: 08-07-2022 End: 08-07-2022 [facility] Richard Boyer DAIRY HUSBANDRY TEACHER.GAUGE MAKER APPRENTICE Work Phone: Psychiatry Comment on above: Bipolar 2 disorder ( HCC) (Primary Dx); FELIPE (generalized anxiety disorder) Start: 07-22-2022 Refill Edwina mac PA-C Work Phone: [facility] Comment on above: Refill Request Start: 07-21-2022 End: 07-21-2022 Patient encounter procedure Ta ROMAN Work Phone: [facility] Comment on above: URI, acute (Primary Dx) Start: 06-08-2022 End: 06-08-2022 [facility] Richard Boyer APRN.GAUGE MAKER APPRENTICE Work Phone: Psychiatry Comment on above: Encounter for long-t erm (current) use of medications (Primary Dx); Bipolar 2 disorder (HCC); FELIPE (generalized anxiety disorder) Start: 05-24-2022 End: 05-24-2022 Subsequent hospital visit by physician Alicia Wang MD Work Phone: Gastroenterology Comment on above: GERD without esophag itis [K21.9] Start: 04-27-2022 End: 04-27-2022 [facility] Richard Boyer DAIRY HUSBANDRY TEACHER.GAUGE MAKER APPRENTICE Work Phone: Psychiatry Comment on above: Bipolar 2 disorder ( HCC) (Primary Dx); FELIPE (generalized anxiety disorder) Start: 04-25-2022 Refill Mihaela Prasad APR N.GAUGE MAKER APPRENTICE Work Phone: Gastroenterology [place] Comment on above: Refill Request Start: 04-10-2022 Telephone encounter Mague hernandez APRN.GAUGE MAKER APPRENTICE Work Phone: [facility] [place] Comment on above: Patient Update Start: 03-24-2022 ambulatory Richard stauffer DAIRY HUSBANDRY TEACHER.GAUGE MAKER APPRENTICE Work Phone: Psychiatry Comment on above: Please help Start: 03-01-2022 End: 03-01-2022 [facility] Richard Boyer DAIRY HUSBANDRY TEACHER.GAUGE MAKER APPRENTICE Work Phone: Psychiatry Comment on above: Encounter for long-t erm (current) use of medications (Primary Dx); Bipolar 2 disorder (HCC); FELIPE (generalized anxiety disorder); Marijuana use Start: 02-26-2022 ambulatory Mague Us APRN.GAUGE MAKER APPRENTICE Work Phone: [facility] [place] Comment on above: Zovirax Start: 02-17-2022 End: 02-17-2022 Patient encounter procedure Sena Rueda DAIRY HUSBANDRY TEACHER.GAUGE MAKER APPRENTICE Work Phone: [place] [facility] Comment on above: Bacterial sinusitis (Primary Dx); Suspected COVID-19 virus infection Start: 02-08-2022 End: 02-08-2022 Patient encounter procedure Radha Alcantara DAIRY HUSBANDRY TEACHER.GAUGE MAKER APPRENTICE Work Phone: [place] [facility] Comment on above: Exposure to COVID-19 virus (Primary Dx); Viral illness Start: 02-08-2022 End: 02-08-2022 Nursing evaluation of patient and report Mi Nurse Work Phone: [facility] [place] Comment on above: Visit for TB skin te st (Primary Dx) Start: 02-02-2022 ambulatory Richard stauffer APRN.GAUGE MAKER APPRENTICE Work Phone: Psychiatry Comment on above: After Visit Summary Start: 02-02-2022 E-mail encounter fro m caregiver Richard Boyer APRN.GAUGE MAKER APPRENTICE Work Phone: [facility] [place] Start: 02-02-2022 Telephone encounter George Menard MD Work Phone: [facility] [place] Comment on above: Orders Start: 02-02-2022 End: 02-02-2022 Patient encounter procedure Richard Boyer APRN.GAUGE MAKER APPRENTICE Work Phone: Psychiatry Comment on above: Encounter for long-t erm (current) use of medications (Primary Dx); Bipolar 2 disorder (HCC); FELIPE (generalized anxiety disorder); Marijuana use Start: 01-31-2022 End: 01-31-2022 Patient encounter procedure Mihaela Prasad DAIRY HUSBANDRY TEACHER.GAUGE MAKER APPRENTICE Work Phone: Gastroenterology [place] Comment on above: GERD without esophag itis Start: 01-27-2022 Telephone encounter Mague hernandez APRN.GAUGE MAKER APPRENTICE Work Phone: Family [facility] [place] Comment on above: Results Start: 01-27-2022 End: 01-27-2022 Patient encounter procedure Mague Us DAIRY HUSBANDRY TEACHER.GAUGE MAKER APPRENTICE Work Phone: Family [facility] [place] Comment on above: Encounter for PPD sk in test reading [Z11.1 (ICD-10-CM)] (Primary Dx) Start: 01-25-2022 End: 01-25-2022 Patient encounter procedure Mague Baezalogjewels MUIR.VICTOR M Work Phone: Family [facility] [place] Comment on above: Routine physical exa mination (Primary Dx); Urinary urgency; Primary hypertension; Obesity, Class III, BMI >= 40; Bipolar 2 disorder (HCC); Hyperlipidemia, mixed; Visit for TB skin test; Anxiety and depression Start: 01-25-2022 End: 01-25-2022 Physical examination Mague Baezalogjewels MUIR.VICTOR M Work Phone: [facility] [place] Start: 01-17-2022 End: 01-17-2022 ambulatory Mague Podlogjewels MUIR.GAUGE MAKER APPRENTICE Work Phone: [facility] [place] Comment on above: GERD without esophag itis (Primary Dx) Bipolar 2 disorder ( HCC) (Primary Dx); FELIPE (generalized anxiety disorder); Marijuana use Start: 01-17-2022 End: 01-17-2022 Telemedicine consultation with patient Mague Felishalogjewels MUIR.GAUGE MAKER APPRENTICE Work Phone: [facility] [place] Start: 01-07-2022 End: 01-11-2022 Evaluation and management of inpatient [facility] Start: 01-07-2022 End: 01-11-2022 Evaluation and management of inpatient Ashwin Ballesteros MD Work Phone: [facility] Start: 12-31-2021 Refill Richard stauffer DAIRY HUSBANDRY TEACHER.GAUGE MAKER APPRENTICE Work Phone: Psychiatry Comment on above: Refill Request Start: 12-19-2021 End: 12-19-2021 [facility] Richard Boyer DAIRY HUSBANDRY TEACHER.GAUGE MAKER APPRENTICE Work Phone: Psychiatry Comment on above: Encounter for long-t erm (current) use of medications (Primary Dx); Bipolar 2 disorder (HCC); FELIPE (generalized anxiety disorder) Start: 12-15-2021 End: 12-15-2021 Patient encounter procedure Ramírez Laguerre Work Phone: Podiatry Comment on above: Plantar fasciitis of left foot (Primary Dx); Foot pain, left Start: 12-15-2021 End: 12-15-2021 Subsequent hospital visit by physician Nir [facility] [place] Work Phone: Radiology Comment on above: Pain in left foot [M 79.672] Start: 12-14-2021 ambulatory Richard stauffer DAIRY HUSBANDRY TEACHER.GAUGE MAKER APPRENTICE Work Phone: Psychiatry Comment on above: Swartz Level Start: 12-14-2021 E-mail encounter fro m caregiver Richard Boyer DAIRY HUSBANDRY TEACHER.GAUGE MAKER APPRENTICE Work Phone: [facility] [place] Start: 12-14-2021 Telephone encounter Alvarez Quarles MD Work Phone: [facility] Comment on above: Results Start: 12-07-2021 End: 12-07-2021 Patient encounter procedure Richard Boyer APRN.GAUGE MAKER APPRENTICE Work Phone: Psychiatry Comment on above: Bipolar 2 disorder ( HCC) (Primary Dx); FELIPE (generalized anxiety disorder) Start: 11-11-2021 Telephone encounter Alvarez Quarles MD Work Phone: [facility] Comment on above: Results Start: 11-04-2021 End: 11-04-2021 [facility] Richard Boyer DAIRY HUSBANDRY TEACHER.GAUGE MAKER APPRENTICE Work Phone: Psychiatry Comment on above: Encounter for long-t erm (current) use of medications (Primary Dx); FELIPE (generalized anxiety disorder); Bipolar 2 disorder (HCC) After Visit Summary Start: 10-24-2021 End: 10-24-2021 Distance [facility] Richard Boyer DAIRY HUSBANDRY TEACHER.GAUGE MAKER APPRENTICE Work Phone: Psychiatry Comment on above: Bipolar 2 disorder ( HCC) (Primary Dx); FELIPE (generalized anxiety disorder); History of marijuana use Start: 10-04-2021 End: 10-04-2021 [facility] Richard Boyer APRN.GAUGE MAKER APPRENTICE Work Phone: Psychiatry Comment on above: FELIPE (generalized anx iety disorder) (Primary Dx); Bipolar 2 disorder (HCC); Marijuana use Start: 09-23-2021 ambulatory Mague Podlogar DAIRY HUSBANDRY TEACHER.GAUGE MAKER APPRENTICE Work Phone: Family [facility] [place] Comment on above: ointment Start: 09-19-2021 End: 09-19-2021 [facility] Richard Rodriguezindira DAIRY HUSBANDRY TEACHER.GAUGE MAKER APPRENTICE Work Phone: Psychiatry Comment on above: FELIPE (generalized anx iety disorder) (Primary Dx); Bipolar 2 disorder (HCC) Start: 09-07-2021 End: 09-07-2021 [facility] Richard Rodriguezindira DAIRY HUSBANDRY TEACHER.GAUGE MAKER APPRENTICE Work Phone: Psychiatry Comment on above: Bipolar II disorder (HCC) (Primary Dx); FELIPE (generalized anxiety disorder) After Visit Summary Start: 09-05-2021 End: 09-05-2021 Patient encounter procedure Saravanan Hernandezl INVENTORY CONTROL MANAGER Work Phone: Psychology Comment on above: Severe anxiety (Prim cindy Dx); Severe episode of recurrent major depressive disorder, without psychotic features (HCC) Start: 09-01-2021 ambulatory Mague Podlogar DAIRY HUSBANDRY TEACHER.GAUGE MAKER APPRENTICE Work Phone: Family [facility] [place] Comment on above: Behavioral Health Start: 09-01-2021 Telephone encounter Saravanan Cheryl burns INVENTORY CONTROL MANAGER Work Phone: Psychology Comment on above: Consult (Initial [facility] W Pt Outreach) Start: 08-31-2021 End: 08-31-2021 Patient encounter procedure Mague Podlogar DAIRY HUSBANDRY TEACHER.GAUGE MAKER APPRENTICE Work Phone: Family [facility] [place] Comment on above: Anxiety and depressi on (Primary Dx); Hypertension, essential Start: 08-14-2021 Refill Lauro Quarles MD Work Phone: Family [facility] [place] Comment on above: Refill Request Start: 12-19-2017 Patient encounter Cassidy lopez:[facility] Start: 12-23-2009 End: 08-22-2013 Patient encounter status Sade Anival PAZ [facility] Procedures Date Procedure Procedure Detail Performing Clinician Start: 12-15-2024 UA DIP,URINE HCG (POC) Kin Juan MD Work Phone: Start: 09-09-2024 Iadna chlamydia trachomatis amplified probe tq Kin Juan MD Work Phone: Start: 06-09-2024 Follow-up visit Follow Up RICHARD BOYER Start: 02-05-2024 Radiologic exam chest 2 views Mague Podl ogar DAIRY HUSBANDRY TEACHER.GAUGE MAKER APPRENTICE Work Phone: Start: 02-05-2024 Skin test tuberculosis intradermal Mague Podlogar DAIRY HUSBANDRY TEACHER.GAUGE MAKER APPRENTICE Work Phone: Start: 03-19-2023 Iadna chlamydia trachomatis amplified probe tq Kin Juan MD Work Phone: Start: 01-15-2023 Sars-cov-2 detection by dna/rna Antoine Luis MD Work Phone: Start: 05-24-2022 SURGICAL PATHOLOGY Alicia Wang MD Work Phone: Start: 05-24-2022 Esophagogastroduodenoscopy transoral diagnostic Mihaela Prasad DAIRY HUSBANDRY TEACHER.GAUGE MAKER APPRENTICE Work Phone: Start: 01-27-2022 Adult depression screening assessment Mague Podlogar DAIRY HUSBANDRY TEACHER.GAUGE MAKER APPRENTICE Work Phone: Start: 01-25-2022 Skin test tuberculosis intradermal Mague Podlogar DAIRY HUSBANDRY TEACHER.GAUGE MAKER APPRENTICE Work Phone: Start: 01-25-2022 Urnls dip stick/tablet rgnt auto w/o microscopy Mague Podlogar DAIRY HUSBANDRY TEACHER.GAUGE MAKER APPRENTICE Work Phone: Start: 01-14-2022 Adult depression screening assessment Mague Podlogar DAIRY HUSBANDRY TEACHER.GAUGE MAKER APPRENTICE Work Phone: Start: 01-10-2022 Ecg routine ecg w/least 12 lds trcg only w/o i&r Elli Reich MD Work Phone: Start: 01-09-2022 Culture bacterial quanttative colony count urine Nory Carvajalley [facility] Work Phone: Start: 01-09-2022 Drug screen quantitative lithium Elli Reich MD Work Phone: Start: 01-07-2022 Urnls dip stick/tablet reagent auto microscopy Upwhitney Reich MD Work Phone: Start: 01-07-2022 SARS-CoV-2 (COVID-19) RNA [Presence] in Respiratory specimen by ENZO with probe detection Ashwin Ballesteros MD Work Phone: Start: 01-07-2022 Blood ethanol measurement Ashwin Lopez MD Work Phone: Start: 01-07-2022 Comprehensive metabolic panel Elli thrasher MD Work Phone: Start: 01-07-2022 LAVENDER TOP Ashwin Ballesteros MD Work Phone: Start: 01-07-2022 LIGHT BLUE TOP Ashwin Ballesteros MD Work Phone: Start: 01-07-2022 End: 01-07-2022 Lipid panel Upwhitney Reich MD Work Phone: Start: 01-07-2022 MINT GREEN TOP Ashwin Ballesteros MD Work Phone: Start: 01-07-2022 RAINBOW DRAW Ashwin Ballesteros MD Work Phone: Start: 12-25-2021 Adult depression screening assessment Richard Boyer APRN.CNP Work Phone: Start: 12-15-2021 Radex foot complete minimum 3 views Wild hew [employer] Work Phone: Start: 12-14-2021 Adult depression screening assessment Lauro Quarles MD Work Phone: Start: 11-30-2021 Adult depression screening assessment Richard Boyer APRN.CNP Work Phone: Start: 10-28-2021 Adult depression screening assessment Richard Boyer APRN.CNP Work Phone: Start: 10-21-2021 Adult depression screening assessment Richard Rajguru DAIRY HUSBANDRY TEACHER.GAUGE MAKER APPRENTICE Work Phone: Start: 09-27-2021 Adult depression screening assessment Richard Boyer DAIRY HUSBANDRY TEACHER.GAUGE MAKER APPRENTICE Work Phone: Start: 09-12-2021 Adult depression screening assessment Richard Boyer DAIRY HUSBANDRY TEACHER.GAUGE MAKER APPRENTICE Work Phone: Start: 09-05-2021 Adult depression screening assessment Saravanan DELA CRUZ Work Phone: Start: 08-31-2021 Adult depression screening assessment Mague Us DAIRY HUSBANDRY TEACHER.GAUGE MAKER APPRENTICE Work Phone: Start: 10-15-2018 Adult depression screening assessment Lauro Quarles MD Work Phone: Plan of Treatment Date Care Activity Detail Author Start: 11-04-2028 Urine microalbumin profile DTaP,Tdap,Td Vaccine (2 - Td or Tdap) [facility] Start: 03-19-2028 HPV Testing HPV Testing [facility] Start: 03-19-2028 Pap Testing Pap Testing [facility] Start: 03-19-2028 Screening for malign ant neoplasm of cervix [facility] Start: 03-09-2026 HPV TESTING HPV TESTING [facility] Start: 03-09-2026 PAP TESTING PAP TESTING [facility] Start: 09-09-2025 Screening for malign ant neoplasm of cervix Cervical Cancer Screening [facility] Start: 07-23-2025 Annual PCP Team Forepart Rasper fredi Disease Visit Annual PCP Team Chronic Disease Visit [facility] Start: 04-01-2025 Annual PCP Team Forepart Rasper fredi Disease Visit Annual PCP Team Chronic Disease Visit [facility] Start: 04-01-2025 Covid-19 Vaccine ( season) Covid-19 Vaccine ( season) [facility] Comment on above: Postponed from 01/19 (Declined at this time) Start: 04-01-2025 Pneumococcal vaccination Pneumococcal Vaccine (2 of 2 - PCV) [facility] Comment on above: Postponed from 02/03 (Declined at this time) Start: 02-04-2025 Annual PCP Team Forepart Rasper fredi Disease Visit Annual PCP Team Chronic Disease Visit [facility] Start: 01-19-2025 Influenza vaccination [facility] Start: 01-07-2025 End: 01-07-2025 Patient encounter procedure 01/07/2025 1:20 PM EDT Office Visit OB/Gynecology [address] [place] [address] Kin Pablo MD [address] [place] [address] Annual Exam OB/Gynecology Comment on above: Annual Exam Start: 12-15-2024 End: 12-15-2024 Patient encounter procedure 12/15/2024 9:00 AM EDT Office Visit OB/Gynecology [address] [place] [address] Kin Pablo MD [address] [place] [place] [id number] colp OB/Gynecology Comment on above: colp Start: 11-25-2024 Annual PCP Team Forepart Rasper fredi Disease Visit Annual PCP Team Chronic Disease Visit [facility] Start: 11-18-2024 End: 11-18-2024 Patient encounter procedure 11/18/2024 4:00 PM EDT Office Visit OB/Gynecology [address] [place] [id number] Kin Pablo MD [address] [place] [place] [id number] Annual Exam OB/Gynecology Comment on above: Annual Exam Start: 11-17-2024 Influenza vaccination Influenza Vacc ine (#1) [facility] Comment on above: Postponed from 01/19 (Declined at this time) Start: 11-05-2024 End: 11-05-2024 Distance Health 11/05/2024 4:30 PM EDT [facility] Psychiatry [address] [place] [address] Richard Boyer, DAIRY HUSBANDRY TEACHER.GAUGE MAKER APPRENTICE [address] [place] [id number] PROVIDER ORDERED FOLLOW UP Psychiatry Comment on above: PROVIDER ORDERED FOL LOW UP Start: 11-05-2024 End: 02-04-2025 Comprehensive metabolic 2000 panel - Serum or Plasma COMPREHENSIVE METABOLIC PANEL Lab Routine Encounter for long-term (current) use of medications Expected: 11/05/2024, Expires: 02/04/2025 [facility] Comment on above: Expected: 11/05/2024 , Expires: 02/04/2025 Start: 11-05-2024 End: 02-04-2025 Hemoglobin A1c in Blood HEMOGLOBIN A1C Lab Routine Encounter for long-term (current) use of medications Expected: 11/05/2024, Expires: 02/04/2025 [facility] Comment on above: Expected: 11/05/2024 , Expires: 02/04/2025 Start: 11-05-2024 End: 02-04-2025 Lipid 1996 panel - Serum or Plasma LIPID PANEL, FASTING Lab Routine Encounter for long-term (current) use of medications Expected: 11/05/2024, Expires: 02/04/2025 [facility] Comment on above: Expected: 11/05/2024 , Expires: 02/04/2025 Start: 11-05-2024 End: 02-04-2025 Swartz [Moles/volume] in Serum or Plasma LITHIUM Lab Routine Encounter for long-term (current) use of medications Expected: 11/05/2024, Expires: 02/04/2025 [facility] Work Phone: Comment on above: Expected: 11/05/2024 , Expires: 02/04/2025 Start: 10-15-2024 End: 10-15-2024 Patient encounter procedure 10/15/2024 2:50 PM EDT Office Visit OB/Gynecology [address] [place] [id number] Kin Pablo MD [address] [place] [address] Colposcopy OB/Gynecology Comment on above: Colposcopy Start: 09-29-2024 End: 09-29-2024 Patient encounter procedure 09/29/2024 2:40 PM EDT Office Visit [facility] [place] [address] [place] [id number] Mague Us APRN.GAUGE MAKER APPRENTICE [address] [place] [place] [id number] 6 month follow up [facility] [place] Comment on above: 6 month follow up Start: 09-19-2024 End: 09-19-2024 ambulatory 09/19/2024 3:00 PM EDT [facility] [address] [place] [phone] Richard Boyer, DAIRY HUSBANDRY TEACHER.GAUGE MAKER APPRENTICE [address] [place] [phone] Psychiatry Start: 09-16-2024 End: 09-16-2024 ambulatory 09/16/2024 2:30 PM EDT [facility] Psych[facility] [address] [place] [phone] Richard Boyer, DAIRY HUSBANDRY TEACHER.GAUGE MAKER APPRENTICE [address] [place] [phone] Reschedule from 08/29/24 Psychiatry Comment on above: Reschedule from 08/29 Start: 09-09-2024 End: 09-09-2024 Patient encounter procedure 09/09/2024 1:20 PM EDT Office Visit OB/Gynecology [address] [place] [id number] Kin Pablo MD [address] [place] [address] Annual Exam OB/Gynecology Comment on above: Annual Exam Start: 08-29-2024 End: 08-29-2024 Follow-up encounter 08/29/2024 3:00 PM EDT [facility] Psychiatry [address] [place] [phone] Richard Boyer, DAIRY HUSBANDRY TEACHER.GAUGE MAKER APPRENTICE [address] [place] [phone] 2 month follow up Psychiatry Comment on above: 2 month follow up Start: 08-11-2024 End: 08-11-2024 [facility] 08/11/2024 3:30 PM EDT [facility] Psychiatry [address] [place] [phone] Richard Boyer, DAIRY HUSBANDRY TEACHER.GAUGE MAKER APPRENTICE [address] [place] [phone] PROVIDER ORDERED FOLLOW UP Psychiatry Comment on above: PROVIDER ORDERED FOL LOW UP Start: 07-23-2024 End: 07-23-2024 ambulatory 07/23/2024 5:40 PM EST [facility] [place] [address] [place] [id number] PodlogMague donis APRN.GAUGE MAKER APPRENTICE [address] [place] [id number] HANDICAPPED QUESTIONS [facility] [place] Comment on above: HANDICAPPED QUESTION S Start: 06-09-2024 End: 06-09-2024 Follow-up encounter 06/09/2024 4:00 PM EST [facility] Psychiatry [address] [place] [phone] Richard Boyer, DAIRY HUSBANDRY TEACHER.GAUGE MAKER APPRENTICE [address] [place] [phone] 4-6 week follow up Psychiatry Comment on above: 4-6 week follow up Start: 05-21-2024 Medicare Advantage Annual Wellness Visit Medicare Advantage Annual Wellness Visit [facility] Start: 05-05-2024 End: 05-05-2024 Follow-up encounter Psychiatry Comment on above: 4-6 week follow up Start: 04-04-2024 Annual PCP Team Forepart Rasper fredi Disease Visit Annual PCP Team Chronic Disease Visit [facility] Start: 04-01-2024 End: 04-01-2024 Patient encounter procedure 04/01/2024 2:00 PM EST Office Visit Family Medicine [place] [address] [facility] [place] [address] Mague Us APRN.GAUGE MAKER APPRENTICE [address] [place] [address] Annual Wellness - Declined influenza [facility] Comment on above: Annual Wellness - De clined influenza Start: 03-19-2024 End: 03-19-2024 Patient encounter procedure 03/19/2024 3:00 PM EDT Office Visit OB/Gynecology [address] [place] [address] Kin Pablo MD [address] [place] [address] annual exam OB/Gynecology Comment on above: annual exam Start: 03-19-2024 Screening for malign ant neoplasm of cervix Cervical Cancer Screening [facility] Start: 03-07-2024 Annual PCP Team Forepart Rasper fredi Disease Visit Annual PCP Team Chronic Disease Visit [facility] Start: 02-19-2024 End: 02-19-2024 Follow-up encounter 02/19/2024 1:30 PM EDT [facility] Psych[facility] [address] [place] [phone] Richard Boyer, DAIRY HUSBANDRY TEACHER.GAUGE MAKER APPRENTICE [address] [place] [phone] follow up Psychiatry Comment on above: follow up Start: 02-14-2024 End: 02-14-2024 Nursing evaluation of patient and report 02/14/2024 1:30 PM EDT Nurse Visit [facility] [place] [address] [place] [address] Nurse, Pa [address] [place] [address] PPD read [facility] Comment on above: PPD read Start: 02-12-2024 End: 02-12-2024 Nursing evaluation of patient and report 02/12/2024 1:15 PM EDT Nurse Visit [facility] [address] [facility] [place], [place] [phone] Nurse, Pa [address] [place] [address] PPD #2 [facility] [place] Comment on above: PPD #2 Start: 02-08-2024 End: 02-08-2024 Nursing evaluation of patient and report 02/08/2024 2:15 PM EDT Nurse Visit [facility] Dominic [place] [address] [place], [place] [address] Nurse, Pa [address] [place], [place] [address] PPD read- [facility] [place] Comment on above: PPD read- [facility]FA Start: 02-05-2024 End: 02-05-2024 Patient encounter procedure 02/05/2024 1:40 PM EDT Office Visit [facility] [place] [address] [place], [place] [address] PodlogarMague APRN.[facility] [address] [place], [place] [phone] Breathing issues [facility] [place] Comment on above: Breathing issues Start: 02-01-2024 End: 05-02-2024 Comprehensive metabolic 2000 panel - Serum or Plasma COMPREHENSIVE METABOLIC PANEL Lab Routine Encounter for long-term (current) use of medications Expected: 02/01/2024, Expires: 05/02/2024 [facility] Comment on above: Expected: 02/01/2024 , Expires: 05/02/2024 Start: 02-01-2024 End: 05-02-2024 Lipid 1996 panel - Serum or Plasma LIPID PANEL BASIC Lab Routine Encounter for long-term (current) use of medications Expected: 02/01/2024, Expires: 05/02/2024 [facility] Comment on above: Expected: 02/01/2024 , Expires: 05/02/2024 Start: 02-01-2024 End: 05-02-2024 Swartz [Moles/volume] in Serum or Plasma LITHIUM Lab Routine Encounter for long-term (current) use of medications Expected: 02/01/2024, Expires: 05/02/2024 [facility] Work Phone: Comment on above: Expected: 02/01/2024 , Expires: 05/02/2024 Start: 01-20-2024 Covid-19 Vaccine ( season) Covid-19 Vaccine () [facility] Start: 01-20-2024 Covid-19 Vaccine () Covid-19 Vaccine () [facility] Start: 01-20-2024 Influenza vaccination [facility] Start: 01-09-2024 ANNUAL PCP TEAM TRAINING LEAD FREDI DISEASE VISIT ANNUAL PCP TEAM CHRONIC DISEASE VISIT [facility] Start: 11-02-2023 End: 11-02-2023 Follow-up encounter 11/02/2023 3:30 PM EDT [facility] Psychiatry [address] [place] [phone] Richard Boyer APRN.GAUGE MAKER APPRENTICE [address] [place] [phone] 3 MONTH FOLLOW UP Psychiatry Comment on above: 3 MONTH FOLLOW UP Start: 10-03-2023 End: 10-03-2023 Patient encounter procedure 10/03/2023 3:20 PM EDT Office Visit Family Dominic [place] [address] [place] [address] Mague Us APRN.GAUGE MAKER APPRENTICE [address] [place] [address] 6 month follow up [facility] [place] Comment on above: 6 month follow up Start: 09-19-2023 ANNUAL PCP TEAM TRAINING LEAD FREDI DISEASE VISIT ANNUAL PCP TEAM CHRONIC DISEASE VISIT [facility] Start: 08-10-2023 End: 11-09-2023 Comprehensive metabolic 2000 panel - Serum or Plasma COMP METABOLIC PANEL Lab Routine Encounter for long-term (current) use of medications Expected: 08/10/2023, Expires: 11/09/2023 [facility] Work Phone: Comment on above: Expected: 08/10/2023 , Expires: 11/09/2023 Start: 08-10-2023 End: 11-09-2023 Hemoglobin A1c in Blood HGB A1C Lab Routine Encounter for long-term (current) use of medications Expected: 08/10/2023, Expires: 11/09/2023 [facility] Work Phone: Comment on above: Expected: 08/10/2023 , Expires: 11/09/2023 Start: 08-10-2023 End: 11-09-2023 Lipid 1996 panel - Serum or Plasma LIPID PANEL BASIC Lab Routine Encounter for long-term (current) use of medications Expected: 08/10/2023, Expires: 11/09/2023 [facility] Work Phone: Comment on above: Expected: 08/10/2023 , Expires: 11/09/2023 Start: 08-10-2023 End: 11-09-2023 Swartz [Moles/volume] in Serum or Plasma LITHIUM BLD Lab Routine Encounter for long-term (current) use of medications Expected: 08/10/2023, Expires: 11/09/2023 [facility] Work Phone: Comment on above: Expected: 08/10/2023 , Expires: 11/09/2023 Start: 08-10-2023 End: 11-09-2023 Thyrotropin [Units/volume] in Serum or Plasma TSH BLD Lab Routine Encounter for long-term (current) use of medications Expected: 08/10/2023, Expires: 11/09/2023 [facility] Work Phone: Comment on above: Expected: 08/10/2023 , Expires: 11/09/2023 Start: 07-22-2023 BP CONTROLLED (<130/80) BP CONTROLLE D (<130/80) [facility] Start: 05-21-2023 Depression Assessment Depression Ass essment [facility] Start: 02-12-2023 End: 04-14-2023 Swartz [Moles/volume] in Serum or Plasma [facility] Work Phone: Comment on above: Expected: 02/12/2023 , Expires: 04/14/2023 Start: 02-12-2023 End: 04-14-2023 Thyrotropin [Units/volume] in Serum or Plasma [facility] Work Phone: Comment on above: Expected: 02/12/2023 , Expires: 04/14/2023 Start: 01-31-2023 BP CONTROLLED (<130/80) BP CONTROLLE D (<130/80) [facility] Start: 01-27-2023 Adult depression screening assessment DEPRESSION SCREENING [facility] Start: 01-27-2023 ANNUAL PCP TEAM TRAINING LEAD FREDI DISEASE VISIT ANNUAL PCP TEAM CHRONIC DISEASE VISIT [facility] Start: 01-25-2023 ANNUAL PCP TEAM TRAINING LEAD FREDI DISEASE VISIT ANNUAL PCP TEAM CHRONIC DISEASE VISIT [facility] Start: 01-25-2023 COVID-19 VACCINE (#1) COVID-19 VACCI NE (#1) [facility] Comment on above: Postponed from 06/07 (Declined at this time) Start: 01-25-2023 HEPATITIS B (1 of 3 - 3-dose series) HEPATITIS B (1 of 3 - 3-dose series) [facility] Comment on above: Postponed from 12/05 (Declined at this time) Start: 01-25-2023 PNEUMOCOCCAL (2 - PCV) PNEUMOCOCCAL (2 - PCV) [facility] Comment on above: Postponed from 02/03 (Declined at this time) Start: 01-25-2023 Urine microalbumin profile DTAP,TDAP,TD (1 - Tdap) [facility] Comment on above: Postponed from 12/05 (Declined at this time) Start: 01-19-2023 Covid-19 Vaccine ( season) Covid-19 Vaccine ( season) [facility] Start: 01-19-2023 Influenza vaccination [facility] Start: 01-17-2023 ANNUAL PCP TEAM TRAINING LEAD FREDI DISEASE VISIT ANNUAL PCP TEAM CHRONIC DISEASE VISIT [facility] Start: 01-14-2023 Adult depression screening assessment DEPRESSION SCREENING [facility] Start: 01-08-2023 End: 03-10-2023 BLOOD TB SCREEN BLOOD TB SCREEN Lab Routine Screening-pulmonary TB Expected: 01/08/2023, Expires: 03/10/2023 [facility] Work Phone: Comment on above: Expected: 01/08/2023 , Expires: 03/10/2023 Start: 01-08-2023 End: 03-10-2023 Lipid 1996 panel - Serum or Plasma LIPID PANEL BASIC Lab Routine Hyperlipidemia, mixed Expected: 01/08/2023, Expires: 03/10/2023 [facility] Work Phone: Comment on above: Expected: 01/08/2023 , Expires: 03/10/2023 Start: 12-25-2022 Adult depression screening assessment DEPRESSION SCREENING [facility] Start: 12-14-2022 Adult depression screening assessment DEPRESSION SCREENING [facility] Start: 12-07-2022 BP CONTROLLED (<130/80) BP CONTROLLE D (<130/80) [facility] Start: 11-30-2022 Adult depression screening assessment DEPRESSION SCREENING [facility] Start: 11-17-2022 Influenza vaccination INFLUENZA (#1) [facility] Comment on above: Postponed from 01/19 (Declined at this time) Start: 10-28-2022 Adult depression screening assessment DEPRESSION SCREENING [facility] Start: 10-21-2022 Adult depression screening assessment DEPRESSION SCREENING [facility] Start: 09-27-2022 Adult depression screening assessment DEPRESSION SCREENING [facility] Start: 09-12-2022 Adult depression screening assessment DEPRESSION SCREENING [facility] Start: 09-05-2022 Adult depression screening assessment DEPRESSION SCREENING [facility] Start: 08-31-2022 Adult depression screening assessment DEPRESSION SCREENING [facility] Start: 08-31-2022 ANNUAL PCP TEAM TRAINING LEAD FREDI DISEASE VISIT ANNUAL PCP TEAM CHRONIC DISEASE VISIT [facility] Start: 08-17-2022 End: 10-17-2022 Comprehensive metabolic 2000 panel - Serum or Plasma COMP METABOLIC PANEL Lab Routine Encounter for long-term (current) use of medications Expected: 08/17/2022 (Approximate), Expires: 10/17/2022 [facility] Work Phone: Comment on above: Expected: 08/17/2022 (Approximate), Expires: 10/17/2022 Start: 08-17-2022 End: 10-17-2022 Swartz [Moles/volume] in Serum or Plasma LITHIUM BLD Lab Routine Encounter for long-term (current) use of medications Expected: 08/17/2022 (Approximate), Expires: 10/17/2022 [facility] Work Phone: Comment on above: Expected: 08/17/2022 (Approximate), Expires: 10/17/2022 Start: 08-17-2022 End: 10-17-2022 Thyrotropin [Units/volume] in Serum or Plasma TSH BLD Lab Routine Encounter for long-term (current) use of medications Expected: 08/17/2022 (Approximate), Expires: 10/17/2022 [facility] Work Phone: Comment on above: Expected: 08/17/2022 (Approximate), Expires: 10/17/2022 Start: 07-21-2022 End: 08-04-2022 Influenza virus A and B RNA and SARS-CoV-2 (COVID-19) N gene panel - Respiratory specimen by ENZO with probe detection COVID WITH FLUA+B, ROUTINE Microbiology Routine URI, acute Expected: 07/21/2022, Expires: 08/04/2022 [facility] Work Phone: Comment on above: Expected: 07/21/2022 , Expires: 08/04/2022 Start: 06-08-2022 End: 08-08-2022 Comprehensive metabolic 2000 panel - Serum or Plasma COMP METABOLIC PANEL Lab Routine Encounter for long-term (current) use of medications Bipolar 2 disorder (HCC) FELIPE (generalized anxiety disorder) Expected: 06/08/2022, Expires: 08/08/2022 [facility] Work Phone: Comment on above: Expected: 06/08/2022 , Expires: 08/08/2022 Start: 06-08-2022 End: 08-08-2022 Swartz [Moles/volume] in Serum or Plasma LITHIUM BLD Lab Routine Encounter for long-term (current) use of medications Bipolar 2 disorder (HCC) FLEIPE (generalized anxiety disorder) Expected: 06/08/2022, Expires: 08/08/2022 [facility] Work Phone: Comment on above: Expected: 06/08/2022 , Expires: 08/08/2022 Start: 06-08-2022 End: 08-08-2022 Thyrotropin [Units/volume] in Serum or Plasma TSH BLD Lab Routine Encounter for long-term (current) use of medications Expected: 06/08/2022, Expires: 08/08/2022 [facility] Work Phone: Comment on above: Expected: 06/08/2022 , Expires: 08/08/2022 Start: 05-21-2022 DEPRESSION ASSESSMENT DEPRESSION ASS ESSMENT [facility] Start: 04-10-2022 End: 06-10-2022 Bacteria identified in Urine by Culture URINE CULTURE Microbiology Routine Microscopic hematuria Expected: 04/10/2022, Expires: 06/10/2022 [facility] Work Phone: Comment on above: Expected: 04/10/2022 , Expires: 06/10/2022 Start: 03-01-2022 End: 05-01-2022 CBC panel - Blood by Automated count CBC Lab Routine Encounter for long-term (current) use of medications Expected: 03/01/2022, Expires: 05/01/2022 [facility] Work Phone: Comment on above: Expected: 03/01/2022 , Expires: 05/01/2022 Start: 03-01-2022 End: 05-01-2022 Comprehensive metabolic 2000 panel - Serum or Plasma COMP METABOLIC PANEL Lab Routine Encounter for long-term (current) use of medications Expected: 03/01/2022, Expires: 05/01/2022 [facility] Work Phone: Comment on above: Expected: 03/01/2022 , Expires: 05/01/2022 Start: 03-01-2022 End: 05-01-2022 Swartz [Moles/volume] in Serum or Plasma LITHIUM BLD Lab Routine Encounter for long-term (current) use of medications Expected: 03/01/2022, Expires: 05/01/2022 [facility] Work Phone: Comment on above: Expected: 03/01/2022 , Expires: 05/01/2022 Start: 03-01-2022 End: 05-01-2022 Thyrotropin [Units/volume] in Serum or Plasma TSH BLD Lab Routine Encounter for long-term (current) use of medications Expected: 03/01/2022, Expires: 05/01/2022 [facility] Work Phone: Comment on above: Expected: 03/01/2022 , Expires: 05/01/2022 Start: 02-26-2022 End: 04-28-2022 Urinalysis complete panel - Urine URINALYSIS, WITH MICROSCOPIC Lab Routine Microscopic hematuria Expected: 02/26/2022, Expires: 04/28/2022 [facility] Work Phone: Comment on above: Expected: 02/26/2022 , Expires: 04/28/2022 Start: 02-11-2022 End: 04-13-2022 25-hydroxyvitamin D3 [Mass/volume] in Serum or Plasma VITAMIN D 25 HYDROXY Lab Routine Vitamin D deficiency Expected: 02/11/2022, Expires: 04/13/2022 [facility] Work Phone: Comment on above: Expected: 02/11/2022 , Expires: 04/13/2022 Start: 02-08-2022 End: 02-22-2022 Influenza virus A and B RNA and SARS-CoV-2 (COVID-19) N gene panel - Respiratory specimen by ENZO with probe detection [facility] Work Phone: Comment on above: Expected: 02/08/2022 , Expires: 02/22/2022 Start: 01-19-2022 Influenza vaccination C [facility] Start: 12-19-2021 End: 02-18-2022 Comprehensive metabolic 2000 panel - Serum or Plasma COMP METABOLIC PANEL Lab Routine Encounter for long-term (current) use of medications Expected: 12/19/2021, Expires: 02/18/2022 [facility] Work Phone: Comment on above: Expected: 12/19/2021 , Expires: 02/18/2022 Start: 12-19-2021 End: 02-18-2022 Swartz [Moles/volume] in Serum or Plasma LITHIUM BLD Lab Routine Encounter for long-term (current) use of medications Expected: 12/19/2021, Expires: 02/18/2022 [facility] Work Phone: Comment on above: Expected: 12/19/2021 , Expires: 02/18/2022 Start: 12-19-2021 End: 02-18-2022 Thyrotropin [Units/volume] in Serum or Plasma TSH BLD Lab Routine Encounter for long-term (current) use of medications Expected: 12/19/2021, Expires: 02/18/2022 [facility] Work Phone: Comment on above: Expected: 12/19/2021 , Expires: 02/18/2022 Start: 12-07-2021 End: 02-06-2022 Swartz [Moles/volume] in Serum or Plasma LITHIUM BLD Lab Routine Bipolar 2 disorder (HCC) Expected: 12/07/2021, Expires: 02/06/2022 [facility] Work Phone: Comment on above: Expected: 12/07/2021 , Expires: 02/06/2022 Start: 11-04-2021 End: 01-04-2022 25-hydroxyvitamin D3 [Mass/volume] in Serum or Plasma VITAMIN D 25 HYDROXY Lab Routine Encounter for long-term (current) use of medications Expected: 11/04/2021, Expires: 01/04/2022 [facility] Work Phone: Comment on above: Expected: 11/04/2021 , Expires: 01/04/2022 Start: 11-04-2021 End: 01-04-2022 Comprehensive metabolic 2000 panel - Serum or Plasma COMP METABOLIC PANEL Lab Routine Encounter for long-term (current) use of medications Expected: 11/04/2021, Expires: 01/04/2022 [facility] Work Phone: Comment on above: Expected: 11/04/2021 , Expires: 01/04/2022 Start: 11-04-2021 End: 01-04-2022 Hemoglobin A1c in Blood HGB A1C Lab Routine Encounter for long-term (current) use of medications Expected: 11/04/2021, Expires: 01/04/2022 [facility] Work Phone: Comment on above: Expected: 11/04/2021 , Expires: 01/04/2022 Start: 11-04-2021 End: 01-04-2022 Lipid 1996 panel - Serum or Plasma LIPID PANEL BASIC Lab Routine Encounter for long-term (current) use of medications Expected: 11/04/2021, Expires: 01/04/2022 [facility] Work Phone: Comment on above: Expected: 11/04/2021 , Expires: 01/04/2022 Start: 11-04-2021 End: 01-04-2022 Thyrotropin [Units/volume] in Serum or Plasma TSH BLD Lab Routine Encounter for long-term (current) use of medications Expected: 11/04/2021, Expires: 01/04/2022 [facility] Work Phone: Comment on above: Expected: 11/04/2021 , Expires: 01/04/2022 Start: 06-29-2021 ANNUAL PCP TEAM TRAINING LEAD FREDI DISEASE VISIT ANNUAL PCP TEAM CHRONIC DISEASE VISIT [facility] Start: 05-21-2021 DEPRESSION ASSESSMENT DEPRESSION ASS ESSMENT [facility] Start: 02-03-2021 BP CONTROLLED (<130/80) BP CONTROLLE D (<130/80) [facility] Start: 02-03-2021 PNEUMOCOCCAL (2 - PCV) PNEUMOCOCCAL (2 - PCV) [facility] Start: 02-03-2021 Pneumococcal vaccination [facility] Start: 10-16-2019 Adult depression screening assessment DEPRESSION SCREENING [facility] Start: 12-05-2006 Hepatitis B Vaccine (1 of 3 - 19+ 3-dose series) Hepatitis B Vaccine (1 of 3 - 19+ 3-dose series) [facility] Start: 12-05-2006 Urine microalbumin profile [facility] Start: 12-05-2005 Depression Screening Depression Scre ening [facility] Start: 12-05-1992 COVID-19 VACCINE (#1) COVID-19 VACCI NE (#1) [facility] Start: 12-05-1992 COVID-19 VACCINE (1) COVID-19 VACCIN E (1) [facility] Start: 06-07-1988 COVID-19 VACCINE (#1) COVID-19 VACCI NE (#1) [facility] Start: 1987 HEPATITIS B (1 of 3 - 3-dose series) HEPATITIS B (1 of 3 - 3-dose series) [facility] Start: 1987 Hepatitis B Vaccine (1 of 3 - 3-dose series) Hepatitis B Vaccine (1 of 3 - 3-dose series) [facility] Bacteria identified in Urine by Culture URINE CULTURE Microbiology Routine Urinary urgency Ordered: 01/25/2022 [facility] Work Phone: Comment on above: Ordered: 01/25/2022 Bacteria identified in Urine by Culture BACTERIAL CULTURE, URINE Microbiology Routine Urinary frequency 11/18/2024 8:07 PM EDT [facility] Work Phone: BACTERIAL VAGINOSIS NAAT BACTERIAL VAGINOSIS NAAT Lab Routine Vaginal discharge 03/19/2023 4:02 PM EDT [facility] Work Phone: COLPOSCOPY COLPOSCOPY Proce dures Routine Cervical high risk HPV (human papillomavirus) test positive Ordered: 09/16/2024 [facility] Work Phone: Comment on above: Ordered: 09/16/2024 COLPOSCOPY COLPOSCOPY Proce dures Routine Cervical high risk HPV (human papillomavirus) test positive Ordered: 12/15/2024 [facility] Work Phone: Comment on above: Ordered: 12/15/2024 End: 01-31-2023 EGD DIAGNOSTIC EGD DIAGNOSTIC Endoscopy Routine GERD without esophagitis 1 Occurrences starting 01/31/2022 until 01/31/2023 [facility] Work Phone: Comment on above: 1 Occurrences starti ng 01/31/2022 until 01/31/2023 End: 12-20-2024 EGD DIAGNOSTIC EGD DIAGNOSTIC Endoscopy Routine Gastroesophageal reflux disease, unspecified whether esophagitis present 1 Occurrences starting 12/21/2023 until 12/20/2024 [facility] Work Phone: Comment on above: 1 Occurrences starti ng 12/21/2023 until 12/20/2024 HIGH RISK HUMAN PAPILLOMA VIRUS (HPV), PCR FOR DETECTION AND GENOTYPING HIGH RISK HUMAN PAPILLOMA VIRUS (HPV), PCR FOR DETECTION AND GENOTYPING Lab Routine Encounter for screening for malignant neoplasm of cervix Special screening examination for human papillomavirus (HPV) 09/09/2024 3:29 PM EDT [facility] Influenza virus A an d B RNA and SARS-CoV-2 (COVID-19) N gene panel - Respiratory specimen by ENZO with probe detection COVID WITH FLUA+B, ROUTINE Microbiology Routine Suspected COVID-19 virus infection Ordered: 02/17/2022 [facility] Work Phone: Comment on above: Ordered: 02/17/2022 PAP TEST PAP TEST Lab Rou leobardo Encounter for screening for malignant neoplasm of cervix Special screening examination for human papillomavirus (HPV) 03/19/2023 4:02 PM EDT [facility] Work Phone: PAP TEST PAP TEST Lab Rou leobardo Encounter for screening for malignant neoplasm of cervix Special screening examination for human papillomavirus (HPV) 09/09/2024 3:29 PM EDT [facility] Work Phone: PPD (TB INTRADERMAL 26110) B/O PPD (TB INTRADERMAL 32785) B/O Procedures Routine Visit for TB skin test Ordered: 02/02/2022 [facility] Work Phone: Comment on above: Ordered: 02/02/2022 PPD (TB INTRADERMAL 08923) B/O PPD (TB INTRADERMAL 40247) B/O Procedures Routine Screening-pulmonary TB Ordered: 02/11/2024 [facility] Work Phone: Comment on above: Ordered: 02/11/2024 End: 03-06-2025 SPIROMETRY - BASELINE AND POST DILATOR SPIROMETRY - BASELINE AND POST DILATOR PFT Routine Wheezing 1 Occurrences starting 02/05/2024 until 03/06/2025 [facility] Work Phone: Comment on above: 1 Occurrences starti ng 02/05/2024 until 03/06/2025 Urinalysis complete panel - Urine URINALYSIS, WITH MICROSCOPIC Lab Routine Urinary urgency Ordered: 01/25/2022 [facility] Work Phone: Comment on above: Ordered: 01/25/2022 XR FOOT GENERAL 3V AP/LAT/OBL LEFT XR FOOT GENERAL 3V AP/LAT/OBL LEFT Radiology Routine Pain in left foot 12/15/2021 2:35 PM EDT [facility] Work Phone: [facility] Immunizations Immunization Date Immunization Notes Care Provider [facility] 02-12-2024 tuberculin skin test ; purified protein derivative solution, intradermal Mi Nurse Work Phone: [facility] 02-05-2024 tuberculin skin test ; purified protein derivative solution, intradermal Mague Us DAIRY HUSBANDRY TEACHER.GAUGE MAKER APPRENTICE Work Phone: [facility] 02-08-2022 tuberculin skin test ; purified protein derivative solution, intradermal Richard Rajguru DAIRY HUSBANDRY TEACHER.GAUGE MAKER APPRENTICE Work Phone: [facility] 01-25-2022 tuberculin skin test ; purified protein derivative solution, intradermal Richard Rajguru DAIRY HUSBANDRY TEACHER.GAUGE MAKER APPRENTICE Work Phone: [facility] 02-11-2020 tuberculin skin test ; purified protein derivative solution, intradermal Richard Rajguru DAIRY HUSBANDRY TEACHER.GAUGE MAKER APPRENTICE Work Phone: [facility] 02-04-2020 influenza, injectabl e, quadrivalent, contains preservative Lauro Quarles MD Work Phone: [facility] 02-04-2020 pneumococcal polysaccharide vaccine, 23 valent Lauro Quarles MD Work Phone: [facility] 02-04-2020 tuberculin skin test ; purified protein derivative solution, intradermal Richard Michaelru DAIRY HUSBANDRY TEACHER.GAUGE MAKER APPRENTICE Work Phone: [facility] 02-04-2020 influenza virus vaccine, unspecified formulation Lauro Quarles MD Work Phone: [facility] 03-11-2019 influenza, injectabl e, quadrivalent, contains preservative Lauro Quarles MD Work Phone: [facility] 11-04-2018 hepatitis A vaccine, adult dosage Mague Podlogar DAIRY HUSBANDRY TEACHER.GAUGE MAKER APPRENTICE Work Phone: [facility] Work Phone: 11-04-2018 measles, mumps and rubella virus vaccine Amgue Podlogar DAIRY HUSBANDRY TEACHER.[facility] Work Phone: [facility] Work Phone: 11-04-2018 pneumococcal polysaccharide vaccine, 23 valent Mague Podlogar DAIRY HUSBANDRY TEACHER.[facility] Work Phone: [facility] Work Phone: 11-04-2018 tetanus toxoid, redu augustina diphtheria toxoid, and acellular pertussis vaccine, adsorbed Mague Podlogar DAIRY HUSBANDRY TEACHER.[facility] Work Phone: [facility] Work Phone: 02-18-2014 influenza, seasonal, injectable Mague Podlogar DAIRY HUSBANDRY TEACHER.[facility] Work Phone: [facility] Work Phone: 09-05-2013 tuberculin skin test ; purified protein derivative solution, intradermal Richard Rajguru DAIRY HUSBANDRY TEACHER.GAUGE MAKER APPRENTICE Work Phone: [facility] 08-22-2013 tuberculin skin test ; purified protein derivative solution, intradermal Richard Rajguru DAIRY HUSBANDRY TEACHER.[facility] Work Phone: [facility] 03-24-2009 novel [id number], live virus for nasal administration Mague Podlogar DAIRY HUSBANDRY TEACHER.GAUGE MAKER APPRENTICE Work Phone: [facility] Work Phone: 03-19-2007 influenza virus vaccine, whole virus Mague Podlogar DAIRY HUSBANDRY TEACHER.GAUGE MAKER APPRENTICE Work Phone: [facility] Work Phone: 12-13-1999 measles, mumps and rubella virus vaccine Lauro Quarles MD Work Phone: [facility] Work Phone: Payers Date Payer Category Payer Medicare (Managed Care) [employer] [facility] HMO [id number] 2022 Unknown [id number] 2021 Medicare [id number] 2021 Medicare [id number] 2019 Medicare [id number] 2017 Medicare [id number] 2002 Unknown PSYCH GENERIC BH GENERIC [id number] 2002-Present [phone] [facility] [address] [address] [place] [address] Indemnity [id number] 2002 Unknown [id number] 1987 Unknown [id number] 1987 Unknown [id number] Social History Date Type Detail Facility Start: 01-17-2019 End: 02-05-2024 Tobacco smoking status NHIS Smokes tobacco daily [facility] History of tobacco use Cigarette Smoker C [facility] Start: 05-06-2021 End: 09-09-2024 Alcohol intake Current drinker of alcohol (finding) [facility] Start: 04-21-2020 End: 09-15-2022 History SDOH Alcohol Frequency 2 [facility] Start: 08-22-2013 History SDOH Alcohol Comment occasional [facility] Start: 01-17-2019 End: 01-25-2022 Tobacco Comment one pack a week or week and a half [facility] Start: 1985 Sex Assigned At Female [facility] Start: 08-20-2021 End: 01-17-2022 Exposure to SARS-CoV-2 (event) Unable to assess [facility] Work Phone: Start: 08-26-2021 End: 02-17-2022 Exposure to SARS-CoV-2 (event) Not sure [facility] Start: 01-17-2019 End: 09-27-2022 Cigarettes smoked current (pack per day) - Reported 0.3 [facility] Start: 01-17-2019 End: 02-05-2024 Tobacco use and exposure Smokeless tobacco non-user [facility] Work Phone: Start: 01-07-2022 Alcohol Comment occasionally [facility] Start: 1985 Sex Assigned At Not on file [facility] Start: 01-17-2022 End: 09-15-2022 History SDOH Alcohol Binge 1 [facility] Start: 01-17-2022 End: 09-15-2022 History SDOH Social Connections Phone 5 [facility] Start: 01-17-2022 History SDOH Social Connections Get Together 3 [facility] Start: 01-17-2022 History SDOH Social Connections Living 7 [facility] Start: 01-17-2022 End: 09-15-2022 History SDOH Physical Activity MPS 15 [facility] Start: 01-17-2022 History SDOH Stress 4 [facility] Tobacco smoking status Never smo ked tobacco (finding) [facility] Sex Assigned At Sex [facility] Start: 09-15-2022 End: 09-27-2022 Social connection and isolation panel [facility] In a typical week, h ow many times do you talk on the telephone with family, friends, or neighbors? Patient refused [facility] Are you now , , , , never or living with a partner? Refused [facility] Do you feel stress - tense, restless, nervous, or anxious, or unable to sleep at night because your mind is troubled all the time - these days [OSQ] Very much [facility] (I/We) worried wheth er (my/our) food would run out before (I/we) got money to buy more. DK or Refused [facility] In the past 12 month s, was there a time when you were not able to pay the mortgage or rent on time? No [facility] Start: 01-14-2021 Gender identity Identifies as female gender (finding) [facility] Start: 01-14-2021 Sexual orientation Heterosexual (finding) [facility] Are you now , , , , never or living with a partner? Never [facility] How often to you hav e a drink containing alcohol? Monthly or less [facility] How many standard drinks containing alcohol do you have on a typical day? 1 or 2 [facility] How often do you hav e 6 or more drinks on 1 occasion? Less than monthly [facility] How hard is it for y ou to pay for the very basics like food, housing, medical care, and heating Very hard [facility] Do you feel stress - tense, restless, nervous, or anxious, or unable to sleep at night because your mind is troubled all the time - these days [OSQ] Rather much [facility] (I/We) worried wheth er (my/our) food would run out before (I/we) got money to buy more. Sometimes true [facility] In the past 12 month s, was there a time when you were not able to pay the mortgage or rent on time? Yes [facility] Functional Status Date Assessment Result Facility 09-22-2024 Total score [AUDIT-C] 2 09/23/19 11:35 AM EDT User, Mychart [facility] 09-22-2024 How often to you hav e a drink containing alcohol? Monthly or less 09/22/2024 11:35 AM EDT User, Mychart Monthly or less [facility] 09-22-[address] inks containing alcohol do you have on a typical day? 1 or 2 09/22/2024 11:35 AM EDT User, Mychart 1 or 2 [facility] 09-22-2024 How often do you hav e 6 or more drinks on 1 occasion? Less than monthly 09/22/2024 11:35 AM EDT User, Mychart Less than monthly [facility] 04-08-2014 Are you deaf, or do you have serious difficulty hearing No 04/08/2014 9:36 AM Kelly Bronson RN No [facility] 04-08-2014 Are you blind, or do you have serious difficulty seeing, even when wearing glasses No 04/08/2014 9:36 AM Kelly Bronson RN No [facility] 04-08-2014 Do you have serious difficulty walking or climbing stairs No 04/08/2014 9:36 AM Kelly Bronson RN No [facility] 04-08-2014 Do you have difficul ty dressing or bathing No 04/08/2014 9:36 AM Kelly Bronson, TRINA No [facility] 04-08-2014 Because of a physica l, mental, or emotional condition, do you have difficulty doing errands alone such as visiting a physician's office or shopping No 04/08/2014 9:36 AM Kelly Bronson RN No [facility] Mental Status Date Assessment Result Facility 04-08-2014 Because of a physica l, mental, or emotional condition, do you have serious difficulty concentrating, remembering, or making decisions Yes 04/08/2014 9:36 AM Kelly Bronson RN Yes [facility] Clinical Notes 05-16-2010 to 12-15-2024 Kin Pablo MD - 12/15/2024 9:00 AM EDTPatient InstructionsTelephone Encounter - Lurdes Marquez RN - 11/20/2024 4:00 PM EDTPatient InstructionsPatient InstructionsPatient Instructions Note Date & Type Note Facility 12-15-2024 History of Present illness Narrative Chief Drafter offered: Patient declines. Wayne is a 39 year old Female who presents today for a colposcopy. The patient's last pap smear was Positive HPV from August 2024. Patient has a history of abnormal pap: Yes. The patient has had prior treatment: none. test: negative UNIVERSAL PROTOCOL / SAFETY CHECKLIST Procedure to be Performed: Colposcopy Sign In: A Moment of CARE was completed. Appropriate PPE (Personal Protective Equipment) worn by all providers involved with the procedure. Special equipment utilized . Patient/Surrogate Stated/Verified: Patient name, Date of , Relevant allergies, and The intended procedure Time Out: Relevant labs, photos, and/or imaging studies have been reviewed. Intended patient and procedure match the source document(s) (e.g. consent, H&P, associated studies [imaging, pathology]) are not applicable. Consent obtained and matches the intended procedure. Yes. Correct side/site is not applicable. Medications required for this procedure are verified. Fire risk assessed and is not applicable. Implants: are not applicable. Sign Out: Specimens not collected. All instruments, equipment, possible retained foreign bodies are accounted for. Yes. The post-procedure plan of care has been communicated to the patient or surrogate. PROCEDURE: EXTERNAL GENITALIA: Normal in appearance without lesions VAGINA: Normal in appearance without lesions CERVIX: Speculum placed in vagina and excellent visualization of cervix achieved. Cervix swabbed x 3 with 3% acetic acid solution. Cervix grossly normal. Squamocolumnar junction visualized. No acetowhite changes, punctations, mosaicism or atypical vasculature noted. BIOPSY: Not done. ECC: not done HEMOSTASIS: NA Procedure Summary: Patient tolerated procedure well and colposcopy was adequate. ASSESSMENT: HPV effect PLAN: Repeat pap/hpv in 1 year Kin London MD documented in this encounter [facility] 12-15-2024 Note HNO ID: [id number] Author: KIN PABLO MD Service: ? Author Type: Physician Type: Progress Notes Filed: 12/15/2024 09:16 Note Text: Chief Drafter offered: Patient declines. Wayne is a 39 year old Female who presents today for a colposcopy. The patient's last pap smear was Positive HPV from August 2024. Patient has a history of abnormal pap: Yes. The patient has had prior treatment: none. test: negative UNIVERSAL PROTOCOL / SAFETY CHECKLIST Procedure to be Performed: Colposcopy Sign In: A Moment of CARE was completed. Appropriate PPE (Personal Protective Equipment) worn by all providers involved with the procedure. Special equipment utilized . Patient/Surrogate Stated/Verified: Patient name, Date of , Relevant allergies, and The intended procedure Time Out: Relevant labs, photos, and/or imaging studies have been reviewed. Intended patient and procedure match the source document(s) (e.g. consent, HANDP, associated studies [imaging, pathology]) are not applicable. Consent obtained and matches the intended procedure. Yes. Correct side/site is not applicable. Medications required for this procedure are verified. Fire risk assessed and is not applicable. Implants: are not applicable. Sign Out: Specimens not collected. All instruments, equipment, possible retained foreign bodies are accounted for. Yes. The post-procedure plan of care has been communicated to the patient or surrogate. PROCEDURE: EXTERNAL GENITALIA: Normal in appearance without lesions VAGINA: Normal in appearance without lesions CERVIX: Speculum placed in vagina and excellent visualization of cervix achieved. Cervix swabbed x 3 with 3% acetic acid solution. Cervix grossly normal. Squamocolumnar junction visualized. No acetowhite changes, punctations, mosaicism or atypical vasculature noted. BIOPSY: Not done. ECC: not done HEMOSTASIS: NA Procedure Summary: Patient tolerated procedure well and colposcopy was adequate. ASSESSMENT: HPV effect PLAN: Repeat pap/hpv in 1 year Kin London MD [facility] 12-15-2024 Instructions Mary Munson MA - 12/15/2024 8:45 AM EDT YOUR RECOVERY It may take a few weeks for your cervix to heal. While your cervix heals, you may have: - Vaginal bleeding (less than a normal menstrual period) - Mild cramping - A brown-black vaginal discharge (similar to coffee grounds) which is a result of the paste used to help stop bleeding from the procedure Do NOT put anything in the vagina for 1 week after your colposcopy if your doctor does a biopsy of your cervix. This includes sex, tampons, and douches. If you have any discomfort, you may take an over the counter pain medication (motrin, advil, ibuprofen, tylenol, etc). If this does not relieve your discomfort, contact your doctor's office for a prescription strength pain medication. It is okay to wear a sanitary pad until the discharge and spotting stops. RISKS Although problems seldom occur with colposcopy, there can be some complications. You may feel faint during and shortly after the procedure as well as have some bleeding and vaginal discharge after the procedure. There is also a risk of infection after the procedure. These complications are rare and can be easily treated. You should contact you doctor is you have any of the following: - Heavy bleeding (more than your normal period) - Bleeding with clots - Severe abdominal pain - Fever (more than 100.4F) - Foul smelling vaginal discharge RESULTS If a biopsy was taken, we will have the results of your biopsy in 1-2 weeks. If you do not hear the results of your biopsy after 2 weeks, please contact your physicians office for the results. Depending on the biopsy results, your doctor will determine your follow up plan which may include further testing or treatments. STAYING HEALTHY After the procedure, you will need to see your doctor for follow up visits during the year. At these visits your doctor will check the health of your cervix with a pap smear. After three normal pap smears, your doctor will allow you to return to having exams once a year. If you have another abnormal pap smear, you may need closer follow up for longer or you may need additional treatment. By making a few lifestyle changes after the procedure, you can help protect the health of your cervix: - Have regular pelvic exams and pap smears as ordered by your doctor. - Stop smoking as smoking increases your risk of developing a cancer of the cervix - If you have more than one sexual partner, limit your number of partners and use condoms to reduce your risks of STDs. If you have any additional questions, please contact your doctor's office. documented in this encounter [facility] 11-25-2024 Note HNO ID: [id number] Author: MIRELLA GARCIA PSYD Service: ? Author Type: Psychologist Type: Progress Notes Filed: 12/01/2024 23:15 Note Text: [facility] Department ZOOM VISIT Progress Note Wayne Moreno 11/25/2024 [id number] PROVIDER: Mirella Huertas CPT Code: Time: 45 minutes Parties Present: Wayne shared that she is actively working on setting boundaries with her mother. She expressed a desire to have time to decompress after work but often feels her personal space is intruded upon. This ongoing dynamic contributes to emotional fatigue and impacts her ability to rest. She reported that she has not started the Mediterranean diet as planned, citing a lack of support and investment from her mother. Wayne noted that shared accountability and mutual engagement would make the process feel more sustainable. She continues to experience issues with incontinence and suspects that stress and her work schedule may be contributing factors. She observed that working more than three consecutive days leads to physical and emotional depletion, indicating that three days is currently her limit for maintaining functioning without a noticeable decline. MEDICATIONS: Per medical record: Current Outpatient Medications Medication Sig lurasidone (LATUDA) 60 mg tablet Take 1 tablet by mouth daily with dinner. lamoTRIgine (LAMICTAL) 200 mg tablet Take 1 tablet by mouth once daily. metFORMIN (GLUCOPHAGE) 500 mg tablet Take 1 tablet by mouth two times a day with meals. lithium carbonate ER 450 mg CR tablet Take 2 tablets by mouth daily at bedtime. amLODIPine (NORVASC) 5 mg tablet Take 1 tablet by mouth once daily. losartan (COZAAR) 100 mg tablet Take 1 tablet by mouth once daily. omeprazole (PRILOSEC) 40 mg capsule take 1 capsule by mouth EVERY MORNING BEFORE BREAKFAST WAIT 30 MINUTES BEFORE EATING/DRINKING/TAKING OTHER MEDICATIONS THEN TAKE THE SECOND PILL BEFORE EATING DINNER omeprazole (PRILOSEC) 40 mg capsule Take 1 capsule by mouth once daily. levonorgestrel (MIRENA INTRAUTERINE) by INTRAUTERINE route. COMPOUNDED PRESCRIPTION Full length original Power Steps No current facility-administered medications for this visit. Psychiatric Medication Issues: No change from previous appointment DIAGNOSIS: [place] I: FELIPE Panic Bipolar II TREATMENT PROGRESS/ASSESSMENT: Progressing satisfactorily. TREATMENT PLAN/GOALS: Continue in therapy focusing on self-care, interpersonal relationships,, stress management, affect management, and depression management. Next appointment: schedule as needed Mirella Huertas PsyD [facility] 11-20-2024 Telephone encounter Note Pt called and is notified of providers results and instructions. Pt voices understanding. Lurdes Marquez RN [facility] 11-20-2024 Miscellaneous Notes Pt called and is notified of providers results and instructions. Pt voices understanding. Lurdes Marquez RN Left VM instructing patient to return call to receive results. Janki Isabel MA Please call patient and let her know that her culture did not grow any significant bacteria that needs to be treated. 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 If her symptoms are persistent she should follow-up with primary care documented in this encounter [facility] 11-20-2024 Instructions Richard Boyer APRN.VICTOR M - 11/20/2024 3:10 PM EDT We discussed your mental health and medications: - Continue taking Latuda 60 mg daily. To improve its effectiveness, take it with a snack containing at least 300 calories before bedtime. Examples include: - An apple with 2 tablespoons of peanut butter. - A slice of toast with 1 tablespoon of peanut butter and half a banana. - A banana with 2 pieces of milk chocolate. - Avoid taking Latuda with dinner if it causes excessive sleepiness in the evening. - If you experience worsening side effects or feel the medication is not working as expected, please contact our office. - Continue taking lithium and Lamictal as prescribed. No changes are needed at this time. Your recent lab work showed normal liver and kidney function, and your lithium levels are within the therapeutic range. - Continue taking omeprazole once daily for heartburn. We discussed your lab work and follow-up: - Your A1c has improved since last year. To monitor your health, please complete fasting lab work one week before your next appointment. This will include routine monitoring for your medications. - Your next appointment will be scheduled in approximately 3 months. Modesta will call you after 11:00 AM tomorrow to confirm the date and time. We discussed your lifestyle and diet: - To support your health and medication effectiveness, continue making healthy food choices. Incorporate snacks with sufficient calories when taking Latuda. - You mentioned trying the Mediterranean diet with your mother. While occasional splurges are okay, aim to include more Mediterranean-friendly meals, such as those with olive oil, chickpeas, and fresh vegetables, when possible. We discussed your medication refills: - I have sent 90-day refills for all your medications to your preferred pharmacy ([facility]). If you encounter any issues with refills, please contact [facility] directly at [phone]. If you have any concerns or experience any changes in your health before your next visit, please reach out to our office. For those experiencing a suicidal crisis: --call the National Suicide Prevention Lifeline at 988 (105.416.5258) --text the Crisis Text Line (text HOME to 787399) --call 911 and let them know you are having a mental health crisis or go to your nearest Emergency Room for stabilization. --You can also call Mobile Crisis at [phone]. -- You may call the department appointment line at [phone] to schedule your appointment. -- Please call my nurse at [phone] or send me a message in [employer] with any questions or concerns between appointments. documented in this encounter [facility] 11-20-2024 Telephone encounter Note Left VM instructing patient to return call to receive results. Janki Isabel MA [facility] 11-20-2024 Telephone encounter Note Please call patient and let her know that her culture did not grow any significant bacteria that needs to be treated. 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 If her symptoms are persistent she should follow-up with primary care [facility] 11-19-2024 Note HNO ID: [id number] Author: MIRELLA GARCIA PSYD Service: ? Author Type: Psychologist Type: Progress Notes Filed: 11/19/2024 23:24 Note Text: [facility] [facility]al [facility] ZOOM VISIT Progress Note Wayne Moreno 11/13/2024 [id number] PROVIDER: Mirella Huertas CPT Code: Time: 45 minutes Parties Present: Wayne discussed ongoing concerns related to her relationship, specifically around maintaining healthy boundaries and uncertainty about her partner?s level of emotional investment. She continues to reflect on these dynamics and is working to assert her needs more clearly. She also reported experiencing some difficulty with incontinence, which she noted has worsened during times of stress in the past. However, she did not identify any significant current stressors. She was encouraged to monitor the symptoms and to contact her primary care provider if the issue persists or worsens. MEDICATIONS: Per medical record: Current Outpatient Medications Medication Sig nitrofurantoin monohydrate and macrocrystal (MACROBID) 100 mg capsule Take 1 capsule by mouth two times a day for 5 days. lurasidone (LATUDA) 60 mg tablet Take 1 tablet by mouth daily with dinner. lamoTRIgine (LAMICTAL) 200 mg tablet Take 1 tablet by mouth once daily. metFORMIN (GLUCOPHAGE) 500 mg tablet Take 1 tablet by mouth two times a day with meals. lithium carbonate ER 450 mg CR tablet Take 2 tablets by mouth daily at bedtime. amLODIPine (NORVASC) 5 mg tablet Take 1 tablet by mouth once daily. losartan (COZAAR) 100 mg tablet Take 1 tablet by mouth once daily. omeprazole (PRILOSEC) 40 mg capsule take 1 capsule by mouth EVERY MORNING BEFORE BREAKFAST WAIT 30 MINUTES BEFORE EATING/DRINKING/TAKING OTHER MEDICATIONS THEN TAKE THE SECOND PILL BEFORE EATING DINNER omeprazole (PRILOSEC) 40 mg capsule Take 1 capsule by mouth once daily. levonorgestrel (MIRENA INTRAUTERINE) by INTRAUTERINE route. COMPOUNDED PRESCRIPTION Full length original Power Steps No current facility-administered medications for this visit. Psychiatric Medication Issues: No change from previous appointment DIAGNOSIS: [place] I: FELIPE Panic Bipolar II TREATMENT PROGRESS/ASSESSMENT: Progressing satisfactorily. TREATMENT PLAN/GOALS: Continue in therapy focusing on self-care, interpersonal relationships,, stress management, affect management, and depression management. Next appointment: schedule as needed Mirella Huertas PsyD [facility] 11-18-2024 Note HNO ID: [id number] Author: MARIA GUADALUPE SOLOMON APRN.GAUGE MAKER APPRENTICE Service: ? Author Type: Nurse Practitioner Type: Progress Notes Filed: 11/18/2024 20:10 Note Text: [facility] Subjective Wayne Moreno is a 38 year old female. Patient presents with: Urinary Frequency: x 2 weeks HPI Urinary Frequency: - Urinary frequency x2 weeks. - Denies dysuria, vaginal itching, or discomfort. - Reports urinary urgency leading to incontinence episodes upon arriving home or at her mother's house. - Keeps a change of clothes at her mother's house and an extra pair of scrubs in her car for work-related incidents. - Denies abdominal or back pain. - Recent gynecological evaluation for a labial nodule causing itching; no concerns noted by the prints and drawings curator. Pre-Diabetes: - Last checked approximately 3 months ago. - Monitors blood glucose levels regularly. Review of Systems Gastrointestinal: (-) abdominal pain Genitourinary: (+) urinary frequency, (+) urinary incontinence, (+) labial pruritus, (-) dysuria, (-) vaginal pruritus Musculoskeletal: (-) back pain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 once daily. omeprazole (PRILOSEC) 40 mg capsule Take 1 capsule by mouth once daily. losartan (COZAAR) 100 mg tablet Take 1 tablet by mouth once daily. meloxicam (MOBIC) 15 mg tablet Take 1 tablet by mouth once daily. With food. cyclobenzaprine (FLEXERIL) 10 mg tablet Take 1 tablet by mouth three times daily as needed for muscle spasm. levonorgestrel (MIRENA INTRAUTERINE) by INTRAUTERINE route. COMPOUNDED PRESCRIPTION Full length original Power Steps No current facility-administered medications for this visit. Labs: Glucose (mg/dL) Date Value 08/24/2022 96 02/04/2020 96 Potassium (mmol/L) Date Value 08/24/2022 4.1 02/04/2020 4.2 Sodium (mmol/L) Date Value 08/24/2022 139 02/04/2020 137 Chloride (mmol/L) Date Value 08/24/2022 104 02/04/2020 104 CO2 (mmol/L) Date Value 08/24/2022 20 02/04/2020 21 Creatinine (mg/dL) Date Value 08/24/2022 0.81 02/04/2020 0.66 BUN (mg/dL) Date Value 08/24/2022 7 02/04/2020 12 Anion Gap (mmol/L) Date Value 08/24/2022 15 02/04/2020 12 Calcium (mg/dL) Date Value 02/04/2020 9.5 Calcium, Total (mg/dL) Date Value 08/24/2022 9.6 Lab Results Component Value Date HBA1C 5.6 11/09/2021 HBA1C 5.1 01/10/2019 Cholesterol, Total Date Value Ref Range Status 01/09/2023 212 (H) <200 mg/dL Final Comment: <200 mg/dL, Desirable 200-239 mg/dL, Borderline high >239 mg/dL, High HDL Cholesterol Date Value Ref Range Status 01/09/2023 39 (L) >39 mg/dL Final Comment: 40-59 mg/dL, Acceptable >59 mg/dL, High: Negative risk factor for coronary heart disease <40 mg/dL, Low: Positive risk factor for coronary heart disease LDL Cholesterol Date Value Ref Range Status 01/09/2023 157 (H) <100 mg/dL Final Comment: <100 mg/dL, Optimal 100-129 mg/dL, Near optimal/above optimal 130-159 mg/dL, Borderline high 160-189 mg/dL, High >189 mg/dL, Very high Secondary prevention optimal LDL Cholesterol levels are recommended to be < 70 mg/dL Triglyceride Date Value Ref Range Status 01/09/2023 79 <150 mg/dL Final Comment: <150 mg/dL, Normal 150-199 mg/dL, Borderline high 200-499 mg/dL, High >499 mg/dL, Very high Glucose (mg/dL) Date Value 08/24/2022 96 02/04/2020 96 Potassium (mmol/L) Date Value 08/24/2022 4.1 02/04/2020 4.2 Sodium (mmol/L) Date Value 08/24/2022 139 02/04/2020 137 Chloride (mmol/L) Date Value 08/24/2022 104 02/04/2020 104 CO2 (mmol/L) Date Value 08/24/2022 20 02/04/2020 21 Creatinine (mg/dL) Date Value 08/24/2022 0.81 02/04/2020 0.66 BUN (mg/dL) Date Value 08/24/2022 7 02/04/2020 12 Anion Gap (mmol/L) Date Value 08/24/2022 15 02/04/2020 12 Calcium (mg/dL) Date Value 02/04/2020 9.5 Calcium, Total (mg/dL) Date Value 08/24/2022 9.6 Protein, Total (g/dL) Date Value 08/24/2022 6.6 Albumin (g/dL) Date Value 08/24/2022 4.4 Bilirubin, Total (mg/dL) Date Value 08/24/2022 0.2 Alkaline Phosphatase (U/L) Date Value 08/24/2022 87 AST (U/L) Date Value 08/24/2022 14 ALT (U/L) Date Value 08/24/2022 13 ANTHROPOMETRICS Height: Last 1 Encounter Ht Readings: Date: Ht: 01/08/2023 160.6 cm (5' 3.23) Current weight: Last 3 Encounter Wt Readings: Date: Wt: 01/15/2023 123.7 kg (272 lb 12.8 oz) 01/08/2023 125.6 kg (276 lb 12.8 oz) 07/21/2022 125.7 kg (277 lb 3.2 oz) BMI: 47.98 kg/(m^2) 5% -10% Weight loss: Last Wt 01/15/23 : 123.7 kg (272 lb 12.8 oz) 5% weight loss = 259 lbs, 10% weight loss = 245 lbs READINESS TO LEARN Cognitive ability: Alert and oriented Motivation to learn: Interested Disinterested / avoidant Family support: Unable to assess - Family not present Instruction provided to: Patient Patient learns best by: Multiple Methods Factors affecting learning: None Physical limitations affecting learning: None Stage of Change: Precontemplation Nutrition Diagnosis: Physical Inactivity, related to; injury or lifestyle change that reduces physical activity or activities of daily living, as evidenced by pt reported lack of physical activity. Calories Needed for Current Weight: Resting Metabolic Rate: 1906 Nutrition Intervention: -Diabetes Pathophysiology: prediabetes meaning -Meal Plan Topics -Balanced eating/Plate method and -Including non-stachy vegetables at meals/snacks -Exercise Topics -Exercise Guidelines/Exercise Benefits/Exercise prescription and -Barriers to exercise Nutrition Monitoring & Evaluation: Dietitian Goals: Maintained OR Improved Blood Glucose Control by next A1C test Weight Reduction of 5-10% within 6 months Criteria: A1C and Weight Patient Stated Goals at today's visit: Pt declined. Adherence Potential to Goals: No assessment and refuses Need for Follow up: RD will remain available Referred by: Elida Noyola MD Emma Rueth, RD Consult Billing Type/Increments: Initial Assessment/15 minutes, 1 increment(s), 15 minutes Start time: 3:00PM End time: 3:15PM My final report will be communicated back to the requesting physician by way of shared medical record. Signed by: Odessa Pope RD documented in this encounter [facility] 02-22-2023 Miscellaneous Notes Endocrinology & Metabolism Social Work Progress Note Provider Action / FYI N/A Wayne N Buck [phone] Type of Contact: Phone Call Reason for Consult: [id number] Contact made: No- industrial relations worker left patient a voicemail to return her phone call Note/Intervention: n/a Unite referral placed: n/a Signature: VANDA Quinones Patient Name: Wayne Kiserkins Date: 02/22/2023 Time: 8:00 AM Pager/Contact #: [phone] During this patient contact I spent approximately 10 minutes in reviewing the patient's chart and counseling regarding community resources and coordinating care. documented in this encounter [facility] 02-12-2023 History of Present illness Narrative Images from the original note were not included. PSYC FOLLOW UP - PSYCHIATRIC PROGRESS NOTE DIAGNOSIS: Bipolar 2 disorder Generalized Anxiety Disorder Weight gain due to medication - metabolic side effects. GAF: -70-61 Some mild symptoms or some difficulty in social, occupational, or school functioning, but generally functioning pretty well. TREATMENT PLAN: Continue Lamictal, Swartz, and Metformin at the same dose. Okay to utilize Risperdal as needed to manage anxiety and sleep difficulties due to grogginess side effect. Complete monitoring lab work. Continue individual psychotherapy with Dr. Ness. Follow up in 3 months. The effects and side effects of all the medications were reviewed in detail with the patient. She denies any involuntary movement related side effects. She is aware of the rash side effect associated with Lamictal. Patient was reeducated in monitoring the signs and symptoms of Swartz toxicity. Patient is in agreement with the treatment plan and aware to reach out with any questions, concerns, or worsening of symptoms prior to the next appointment. CC: Follow up for psychiatric medication management. With the patient consent, visit was performed virtually. I have communicated my name and active licensure. The patient's identity and physical location were verified at the time of this visit. Either the patient or their legal insurance verification representative has been informed of the risks and benefits of -- and alternatives to -- treatment through a remote evaluation and consents to proceed with the evaluation remotely. HPI: Wayne Moreno is a 37 year old Female with a history of Bipolar disorder and FELIPE presenting today for follow-up. Date of last visit: 10/06/2022 Plan from last visit: Consult placed for endocrinology to assist the patient with medication assisted weight loss. Continue psychiatric medications at the same dose. Order fasting lab work at the next appointment. Schedule an appointment for individual psychotherapy. Referred to [email or web address]. Follow-up in January. Today Wayne shares that she has started to see Dr. Ness for therapy. She has only seen this provider twice. She is still trying to get her feel for it. She has been working a lot to support herself and her mom. Her mom finally got a job and she feels that it will help things financially. Work has been stressful. Patient continues to smoke cigarettes. She had some stress about hosting a yard sale to help her mother downsize. She has been working with an electromechanical equipment assembler to discuss her options regarding medication assisted weight loss. She is seeing a patent leather sorter. They have been recommending Ozempic but patient does not wish to try it as she is concerned about side effects. She has been eating better meals and has been able to lose weight. She has been taking Risperdal only as needed. She has been concerned about being groggy in the morning. She does not wish to take it every night. She also attributes some of her sleep difficulties to her mattress. 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 She continues to smoke. She would like to stop smoking. She cannot afford the patches at this time. Interested in contacting 1800- Quit- Now. Interval Progress: Slightly improved Risks and benefits of the medication, including any black box warnings, were discussed with the patient. Social History: See HPI PATIENT DATA: Generalized Anxiety Disorder Scale (FELIPE-7) FELIPE - 7 SCORES 01/03/2023 01/17/2023 02/08/2023 FELIPE-7 Score 17 18 16 (0-4) minimal anxiety, (5-9) mild anxiety, (10-14) moderate anxiety, (15-21) severe anxiety Patient Health Questionnaire (PHQ-9) PHQ-9 01/03/2023 01/17/2023 02/08/2023 Score 18 20 11 (0-4) minimal depression, (5-9) mild depression, (10-14) moderate depression, (15-19) moderately severe depression, (20-27) severe depression ROS: General: Negative for fever, malaise, unintentional weight loss HEENT: Negative for recent changes in vision or hearing, no nasal drainage Respiratory: Negative for cough, wheezing or SOB Cardiovascular: Negative for chest pain GI: Negative for nausea, vomiting, change in bowel habits MUSCULOSKELETAL: Negative for acute back or joint pain SKIN: Negative for rash NEURO: Negative for headaches, seizures, focal neurological deficits All other systems negative. VITAL SIGNS: BP Temp Pulse Resp SpO2 MENTAL STATUS EXAMINATION: Appearance: Appropriately groomed, appears stated age Behavior: Appropriately engaged Psychomotor: No psychomotor agitation Cognition Level of Consciousness: Awake and alert. No fluctuation in wakefulness. Orientation: Grossly oriented Memory: Intact Attention/Concentration: Good Fund of Knowledge: Able to demonstrate an awareness of current events. Mood: Euthymic Affect: Congruent to mood Speech/Language: Appropriate tone, prosody, katie, phonetics, and syntax Thought Form: Goal-directed. No loosening of associations. Thought Content: No delusions noted or endorsed. Perceptual Disturbances: Did not appear to respond to auditory stimuli. Safety: Suicidal Ideations: No suicidal ideation, intent or plan. Homicidal Ideations: No homicidal ideation, intent or plan. Insight: Appropriate Judgment: Appropriate I spent a total of 28 minutes on the date of the service which included preparing to see the patient, [id number] patient care, completing clinical documentation, and counseling and educating the patient/family/caregiver, ordering medications/labs. Richard Boyer APRN.GAUGE MAKER APPRENTICE February 12, 2023 2:42 PM This note was partially generated using CoNarrative voice recognition system. Note was reviewed for accuracy. There may be minor misspellings or grammar miscues with AlignMedon voice recognition. documented in this encounter [facility] 02-07-2023 Miscellaneous Notes Spoke to patient regarding rescheduling appt. Scheduled the patient for the next available appt. documented in this encounter [facility] 01-23-2023 Miscellaneous Notes Call placed to patient, notified of form being complete. Patient will pickle water pump operator tomorrow from medical records. Copy of form made and sent to scanning. Original sent to medical records for pickle water pump operator. Anjelica Alcazar LPN From completed. Please make copy for our records and take original to medical records and let patient know she can pickle water pump operator? Mague Us APRN.VICTOR M Type of form: Health Clearance Form Form received via walk in When form is completed, Call patient and ask if she wants to pickle water pump operator form or if it needs to be mailed. Form has been forwarded to Nurse Practictioner: Mague Us. Anjelica Alcazar LPN documented in this encounter [facility] 01-17-2023 Caitie June PA-C - 01/17/2023 2:23 PM EDT What is GERD? Gastroesophageal reflux disease (GERD) is a more serious form of gastroesophageal reflux (MAR), which is common. MAR occurs when the lower esophageal sphincter (LES) opens spontaneously, for varying periods of time, or does not close properly and stomach contents rise up into the esophagus. MAR is also called acid reflux or acid regurgitation, because digestive juices--called acids--rise up with the food. The esophagus is the tube that carries food from the mouth to the stomach. The LES is a ring of muscle at the bottom of the esophagus that acts like a valve between the esophagus and stomach. When acid reflux occurs, food or fluid can be tasted in the back of the mouth. When refluxed stomach acid touches the lining of the esophagus it may cause a burning sensation in the chest or throat called heartburn or acid indigestion. Occasional MAR is common and does not necessarily mean one has GERD. Persistent reflux that occurs more than twice a week is considered GERD, and it can eventually lead to more serious health problems. People of all ages can have GERD. What are the symptoms of GERD? The main symptom of GERD in adults is frequent heartburn, also called acid indigestion--burning-type pain in the lower part of the mid-chest, behind the breast bone, and in the mid-abdomen. Most children under 12 years with GERD, and some adults, have GERD without heartburn. Instead, they may experience a dry cough, asthma symptoms, or trouble swallowing. What causes GERD? The reason some people develop GERD is still unclear. However, research shows that in people with GERD, the LES relaxes while the rest of the esophagus is working. Anatomical abnormalities such as a hiatal hernia may also contribute to GERD. A hiatal hernia occurs when the upper part of the stomach and the LES move above the diaphragm, the muscle wall that separates the stomach from the chest. Normally, the diaphragm helps the LES keep acid from rising up into the esophagus. When a hiatal hernia is present, acid reflux can occur more easily. A hiatal hernia can occur in people of any age and is most often a normal finding in otherwise healthy people over age 50. Most of the time, a hiatal hernia produces no symptoms. Other factors that may contribute to GERD include obesity smoking Common foods that can worsen reflux symptoms include citrus fruits chocolate drinks with caffeine or alcohol fatty and fried foods garlic and onions mint flavorings spicy foods tomato-based foods, like spaghetti sauce, salsa, chili, and pizza What is GERD in children? Distinguishing between normal, physiologic reflux and GERD in children is important. Most infants with MAR are happy and healthy even if they frequently spit up or vomit, and babies usually outgrow MAR by their first birthday. Reflux that continues past 1 year of age may be GERD. Studies show GERD is common and may be overlooked in infants and children. For example, GERD can present as repeated regurgitation, nausea, heartburn, coughing, laryngitis, or respiratory problems like wheezing, asthma, or pneumonia. Infants and young children may demonstrate irritability or arching of the back, often during or immediately after feedings. Infants with GERD may refuse to feed and experience poor growth. Talk with your child s health care provider if reflux-related symptoms occur regularly and cause your child discomfort. Your health care provider may recommend simple strategies for avoiding reflux, such as burping the infant several times during feeding or keeping the in an upright position for 30 minutes after feeding. If your child is older, your health care provider may recommend that your child eat small, frequent meals and avoid the following foods: sodas that contain caffeine chocolate peppermint spicy foods acidic foods like oranges, tomatoes, and pizza fried and fatty foods Avoiding food 2 to 3 hours before bed may also help. Your health care provider may recommend raising the head of your child s bed with wood blocks secured under the bedposts. Just using extra pillows will not help. If these changes do not work, your health care provider may prescribe medicine for your child. In rare cases, a child may need surgery. For information about MAR in infants, children, and adolescents, see the Gastroesophageal Reflux in Infants and Gastroesophageal Reflux in Children and Adolescents fact sheets from the National [place] of Diabetes and Digestive and Kidney Diseases (NIDDK). How is GERD treated? See your health care provider if you have had symptoms of GERD and have been using antacids or other gbtc-qfr-ydkizke reflux medications for more than 2 weeks. Your health care provider may refer you to a lagging machine operator, a doctor who treats diseases of the stomach and intestines. Depending on the severity of your GERD, treatment may involve one or more of the following lifestyle changes, medications, or surgery. Lifestyle Changes If you smoke, stop. Avoid foods and beverages that worsen symptoms. Lose weight if needed. Eat small, frequent meals. Wear loose-fitting clothes. Avoid lying down for 3 hours after a meal. Raise the head of your bed 6 to 8 inches by securing wood blocks under the bedposts. Just using extra pillows will not help. Medications Your health care provider may recommend tulw-xoo-abkplvu antacids or medications that stop acid production or help the muscles that empty your stomach. You can buy many of these medications without a prescription. However, see your health care provider before starting or adding a medication. Antacids, such as Chelsea-Avenel, Maalox, Mylanta, Rolaids, and Riopan, are usually the first drugs recommended to relieve heartburn and other mild GERD symptoms. Many brands on the market use different combinations of three basic salts--magnesium, calcium, and aluminum--with hydroxide or bicarbonate ions to neutralize the acid in your stomach. Antacids, however, can have side effects. Magnesium salt can lead to diarrhea, and aluminum salt may cause constipation. Aluminum and magnesium salts are often combined in a single product to balance these effects. Calcium carbonate antacids, such as Tums, Titralac, and Chelsea-2, can also be a supplemental source of calcium. They can cause constipation as well. Foaming agents, such as Gaviscon, work by covering your stomach contents with foam to prevent reflux. H2 blockers, such as cimetidine (Tagamet HB), famotidine (Pepcid AC), nizatidine (Axid AR), and ranitidine (Zantac 75), decrease acid production. They are available in prescription strength and zwgm-wcj-cmfoqsf strength. These drugs provide short-term relief and are effective for about half of those who have GERD symptoms. Proton pump inhibitors include omeprazole (Prilosec, Zegerid), lansoprazole (Prevacid), pantoprazole (Protonix), rabeprazole (Aciphex), and esomeprazole (Nexium), which are available by prescription. Prilosec is also available in eyts-usm-ldwrqta strength. Proton pump inhibitors are more effective than H2 blockers and can relieve symptoms and heal the esophageal lining in almost everyone who has GERD. Prokinetics help strengthen the LES and make the stomach empty faster. This group includes bethanechol (Urecholine) and metoclopramide (Reglan). Metoclopramide also improves muscle action in the digestive tract. Prokinetics have frequent side effects that limit their usefulness--fatigue, sleepiness, depression, anxiety, and problems with physical movement. Because drugs work in different ways, combinations of medications may help control symptoms. People who get heartburn after eating may take both antacids and H2 blockers. The antacids work first to neutralize the acid in the stomach, and then the H2 blockers act on acid production. By the time the antacid stops working, the H2 nirali will have stopped acid production. Your health care provider is the best source of information about how to use medications for GERD. What if GERD symptoms persist? If your symptoms do not improve with lifestyle changes or medications, you may need additional tests. Barium swallow radiograph uses x rays to help spot abnormalities such as a hiatal hernia and other structural or anatomical problems of the esophagus. With this test, you drink a solution and then x rays are taken. The test will not detect mild irritation, although strictures--narrowing of the esophagus--and ulcers can be observed. Upper endoscopy is more accurate than a barium swallow radiograph and may be performed in a hospital or a doctor s office. The doctor may spray your throat to numb it and then, after lightly sedating you, will slide a thin, flexible plastic tube with a light and lens on the end called an endoscope down your throat. Acting as a tiny camera, the endoscope allows the doctor to see the surface of the esophagus and search for abnormalities. If you have had moderate to severe symptoms and this procedure reveals injury to the esophagus, usually no other tests are needed to confirm GERD. The doctor also may perform a biopsy. Tiny tweezers, called forceps, are passed through the endoscope and allow the doctor to remove small pieces of tissue from your esophagus. The tissue is then viewed with a microscope to look for damage caused by acid reflux and to rule out other problems if infection or abnormal growths are not found. pH monitoring examination involves the doctor either inserting a small tube into the esophagus or clipping a tiny device to the esophagus that will stay there for 24 to 48 hours. While you go about your normal activities, the device measures when and how much acid comes up into your esophagus. This test can be useful if combined with a carefully completed diary--recording when, what, and amounts the person eats--which allows the doctor to see correlations between symptoms and reflux episodes. The procedure is sometimes helpful in detecting whether respiratory symptoms, including wheezing and coughing, are triggered by reflux. A completely accurate diagnostic test for GERD does not exist, and tests have not consistently shown that acid exposure to the lower esophagus directly correlates with damage to the lining. Surgery Surgery is an option when medicine and lifestyle changes do not help to manage GERD symptoms. Surgery may also be a reasonable alternative to a lifetime of drugs and discomfort. Fundoplication is the standard surgical treatment for GERD. Usually a specific type of this procedure, called Clarence fundoplication, is performed. During the Clarence fundoplication, the upper part of the stomach is wrapped around the LES to strengthen the sphincter, prevent acid reflux, and repair a hiatal hernia. The Clarence fundoplication may be performed using a laparoscope, an instrument that is inserted through tiny incisions in the abdomen. The doctor then uses small instruments that hold a camera to look at the abdomen and pelvis. When performed by experienced surgeons, laparoscopic fundoplication is safe and effective in people of all ages, including infants. The procedure is reported to have the same results as the standard fundoplication, and people can leave the hospital in 1 to 3 days and return to work in 2 to 3 weeks. Endoscopic techniques used to treat chronic heartburn include the Bard EndoCinch system, NDO Plicator, and the Stretta system. These techniques require the use of an endoscope to perform the anti-reflux operation. The EndoCinch and NDO Plicator systems involve putting stitches in the LES to create pleats that help strengthen the muscle. The Stretta system uses electrodes to create tiny toure on the LES. When the toure heal, the scar tissue helps toughen the muscle. The mcc effects of these three procedures are unknown. What are the long-term complications of GERD? Chronic GERD that is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 PCV) due on 02/03/2021 INFLUENZA(1) due on 01/19/2022 ANNUAL PCP TEAM CHRONIC DISEASE VISIT due on 08/31/2022 BP CONTROLLED (<130/80) due on 12/07/2022 DEPRESSION SCREENING due on 01/14/2023 PAP TESTING due on 03/09/2026 HPV TESTING due on 03/09/2026 HEPATITIS C SCREENING Completed HIV SCREENING Completed ASSESSMENT/PLAN: 1. GERD without esophagitis - ICD9: 530.81, ICD10: K21.9 - Discussed lifestyle modifications including losing weight, limiting caffeine, no meals three hours before sleep, and head of bed elevation - Refer for GI consult - PANTOPRAZOLE 40 MG TABLET,DELAYED RELEASE - CONSULT TO GASTROENTEROLOGY Mague Us APRN.CNP Prescription instructions reviewed with patient as applicable. Patient advised if symptoms do not improve or if symptoms worsen sooner, to contact their primary care physician. Potential red flag symptoms discussed with the patient. Reviewed appropriate action plan to take if red flag symptoms occur. Patient agreeable to treatment plan. I spent a total of 20 minutes on the date of the service which included preparing to see the patient, [id number] patient care, completing clinical documentation, obtaining and/or reviewing separately obtained history, performing a medically appropriate examination, counseling and educating the patient/family/caregiver, and ordering medications, tests, or procedures. documented in this encounter [facility] 01-17-2022 History of Present illness Narrative Images from the original note were not included. PSYC FOLLOW UP - PSYCHIATRIC PROGRESS NOTE DIAGNOSIS: Bipolar 2 disorder Generalized Anxiety Disorder Marijuana use GAF: -60-51 Moderate symptoms or moderate difficulty in social, occupational or school functioning. TREATMENT PLAN: Continue the patient on the same medication regimen as recommended in her inpatient hospitalization at [facility] last week. Risperidone was added. Propanolol and Zyprexa were discontinued. Swartz was continued. Order Swartz level at next appointment Discussed in person and virtual IOP options for patient to consider for continued treatment. Encouraged patient to schedule an individual appointment with Dr. Kumar for psychotherapy. Encouraged patient to abstain form marijuana use and discussed its effect on brain health. Encouraged patient to work on improving her erratic sleep schedule. Follow up in 2 weeks in person. The effects and side effects of all the medications were reviewed in detail with the patient. She is aware of the rash side effect associated with Lamictal. Patient was educated on the signs and symptoms of lithium toxicity. She is also aware not to use NSAIDs while she is on Swartz. Patient denies any involuntary movement related side effects. Patient is in agreement with the treatment plan and aware to reach out with any questions, concerns, or worsening of symptoms prior to the next appointment. CC: Follow up regarding mood and anxiety With the patient consent, visit was performed virtually. HPI: Wayne Moreno is a 36 year old Female with a history of Bipolar disorder, FELIPE, and marijuana use presenting today for follow-up. Date of last visit: 12/30/2021 Plan from last visit: Complete monitoring lab work in the next 2 days. Consider starting metformin to help with metabolic side effects after reviewing the results of CMP. Continue Swartz, Zyprexa, Lamictal, and Hydroxyzine at the same dose. Try a 30 mg dose of propranolol to see if it is more helpful for her anxiety. Schedule an appointment with Dr. Kumar to continue individual psychotherapy. Follow up in 2 weeks. She was discharged on Sunday01/11/22 from inpatient hospitalization at [facility] after a total of 3 days. She states they adjusted her medications and she learned coping skills. She was unhappy with the coping skills she learned but was pleased with her medication adjustment.They added Risperdal. She states she feels better on the risperidone She is not taking the Zyprexa anymore.She is currently taking risperidone 3 mg. She still endorses anxiety which she relates to going back to work and being on new medications. She notices shakiness mainly in the morning and throughout the day. She reports these symptoms after changing her medications and worsens with her anxiety. She states she feels as if she is about to fall at times. She was educated on orthostatic hypotension with the use of risperidone. She was instructed to rise slowly when getting up from bed. She was informed about the [facility] but declines. She was encouraged to reschedule with her individual psychotherapist. We discussed her marijuana usage which she endorses using on a nightly basis. She refuses to stop smoking despite education. She feels as she is unable to stop because of her current anxiety level. No refills ordered this visit and her next appointment was scheduled for 1129 for an in person visit . Interval Progress: Slightly improved Risks and benefits of the medication, including any black box warnings, were discussed with the patient. Social History: See HPI PATIENT DATA: Generalized Anxiety Disorder Scale (FELIPE-7) FELIPE - 7 SCORES 12/14/2021 12/25/2021 01/14/2022 FELIPE-7 Score 18 12 14 (0-4) minimal anxiety, (5-9) mild anxiety, (10-14) moderate anxiety, (15-21) severe anxiety Patient Health Questionnaire (PHQ-9) PHQ-9 12/14/2021 12/25/2021 01/14/2022 Score 20 15 15 (0-4) minimal depression, (5-9) mild depression, (10-14) moderate depression, (15-19) moderately severe depression, (20-27) severe depression ROS: General: Negative for fever, malaise, unintentional weight loss HEENT: Negative for recent changes in vision or hearing, no nasal drainage Respiratory: Negative for cough, wheezing or SOB Cardiovascular: Negative for chest pain GI: Negative for nausea, vomiting, change in bowel habits MUSCULOSKELETAL: Negative for acute back or joint pain SKIN: Negative for rash NEURO: Negative for headaches, seizures, focal neurological deficits All other systems negative. VITAL SIGNS: BP Temp Pulse Resp SpO2 MENTAL STATUS EXAMINATION: Appearance: Appropriately groomed, appears stated age Behavior: Appropriately engaged Psychomotor: No psychomotor agitation Cognition Level of Consciousness: Awake and alert. No fluctuation in wakefulness. Orientation: Grossly oriented Memory: Intact Attention/Concentration: Good Fund of Knowledge: Able to demonstrate an awareness of current events. Mood: Euthymic Affect: Full Speech/Language: Appropriate tone, prosody, katie, phonetics, and syntax Thought Form: Goal-directed. No loosening of associations. Thought Content: No delusions noted or endorsed. Perceptual Disturbances: Did not appear to respond to auditory stimuli. Safety: Suicidal Ideations: No suicidal ideation, intent or plan. Homicidal Ideations: No homicidal ideation, intent or plan. Insight: Appropriate Judgment: Appropriate I spent a total of 50 minutes on the date of the service which included preparing to see the patient, [id number] patient care, completing clinical documentation, and counseling and educating the patient/family/caregiver, ordering medications/labs. Richard Boyer APRN.[employer] APPRENTICE January 17, 2022 12:52 PM This note was partially generated using CoNarrative voice recognition system. Note was reviewed for accuracy. There may be minor misspellings or grammar miscues with CoNarrative voice recognition. documented in this encounter [facility] 01-11-2022 History of Present illness Narrative Patient discharged home this day and will followup with [facility] for [facility] health services. No LATASHA signed to send AVS Goal Group: Pt shared of meeting her goal from yesterday as she was able to get out of her grumpy mood and had a good night sleep Pt stating feeling optimist because I got a good nights sleep, and I am getting discharged today and feel good about my med changes Stated goal to remain positive, set meds up to be more convenient for my Steps to reach this goal remember the good things, go straight to the house after discharge and get my house cleaned up Why this is important to pt I can't help others til I help myself Pt shared she slept like a baby Pt stated intent to return to work soon as she misses the residents. Life Skills: Pt attended group focusing on 5 factors that increase vulnerability to depression; low self esteem, negative thinking, difficulty expressing feelings, limited support and poor stress management Pt identified having all 5 factors currently. Pt shared of having a good support system with some friends. Pt was provided the Warm line phone number as an additional means of support. Pt's affect was bright and she was actively involved in group discussion. 0802: VS obtained. Pt is alert and oriented in lounge. Calm and cooperative. Maintains good eye contact. Full affect. Pt is dressed in street clothes. Pt denies SI/HI/AH/VH and contracts safety with this staff. No delusions observed. Pt rates anxiety and depression both a lot better than yesterday. Pt states she slept well and has a good appetite. Pt received scheduled medication and took without difficulty. No medication noted upon oral cavity inspection. Pt verbalizes name and use of medications. Encouraged pt to express needs to staff. Pt educated on importance of mask use. Pt opted to not wear mask at this time. 0915: Pt attending group. 1052: After visit summary, including discharge medication list and follow up appointments, thoroughly discussed with pt and pt verbalized understanding and denied any questions. Pt left with a copy of the after visit summary, copy of the safety plan, and all personal belongings. Pt denies suicidal or homicidal ideation. 1945 Patient reports anxiety and depression, but has improved. Patient denies any pain. Patient denies any suicidal ideations. 2034 RN reviewed stress management , anxiety, realistic goal setting, and personal accountability handouts with patient. Patient was receptive to information and kept all handouts. 2150 Patient is pleasant and cooperative, medication compliant 2350 Patient resting quietly in bed, respirations normal 0155 Patient resting quietly in bed, respirations normal 0355 Patient resting quietly in bed,respirations normal 0630 Patient slept 7.75 hrs uninterrupted 172 This student joined Pt and other students in a card game. Pt pleasant, and easily talkative. Did observe Pt during other student's conversation. Stated current anxiety level of 5/10; depression at 3/10. Stated has been sleeping well. Eating relatively well. Stated is looking forward to being discharged but concerned that her meds changes are not effective to the point of bringing her to where she wants to be emotionally. Did participate in a group activity with other students. Pt was very thankful to have students to talk to and participate in activities with. 1900 Pt is clean and casually dressed sitting in the dining area. Pt is calm and cooperative. Pt. Stated they lept a total of 9ish hours and has a good appetite. Pt rates anxiety 5/10 (0/10) and depression 3/10 (0/10). Pt states that the coping skills that she used today were interacting with others to keep my mind focused on things beneficial to me rather than focusing on the negative. -Pt in [facility] area watching television with other patient. Pt stated she was waiting for dinner. They ate 75-100% of dinner. Pt clean wearing street clothes. Pt played STEW and Apples to Apples with students. Pt went to group and students joined in. Pt interacted with all students during card games and during group. They were cheerful and agreeable. Pt explained this morning was difficult because they were woken up early but is feeling better now. Pt denies any other current concerns or need. 16:00 This student approached pt in the [facility]. Pt was sitting with other students playing a card game with them. Pt had good affect. Pt was engaging in small talk and laughing. Pt was dressed in clean street clothes, clean hair and good hygiene. 17:20 This student went with pt to take part in group therapy. Pt was engaged in the game played. Psychiatry Progress Note Patient Name: Wayne Moreno Admit Date: [id number] MR #: [id number] : 1985 Perpetual Assessment Wayne Moreno is a 36 y.o. female with a history of bipolar disorder type I, traumatic brain injury, hypertension, hospitalized for suicidal ideation and severe mood stability. UDS is positive for cannabinoids Diagnosis & Plan/Recommendations PRINCIPAL DIAGNOSIS: Bipolar 1 disorder, mixed, severe (HCC) No new Assessment & Plan notes have been filed under this hospital service since the last note was generated. Service: Behavioral Medicine Comorbid issues impacting my care plan include HTN, morbid obesity, substance use, and traumatic brain injury . Following for inpatient psychotropic management and crisis intervention Interval History: Charts were reviewed, updates obtained from designated nursing staff and social media marketer. Patient was discussed in treatment team and interviewed Patient's propranolol was discontinued because patient does not feel that it has benefited her. There was some concerns about patient not taking her propanolol. But at this time it would be appropriate to discontinue her propranolol. Patient is already on Norvasc that is controlling her blood pressure and propranolol was going use for her anxiety which patient does not believe was with her. Other than that patient has been compliant with treatment plan she has been attending her groups and interventions and is appropriately engaged with staff and peers. Patient reports decreased irritability and is not feeling as depressed as she was the time of admission. Patient is not feeling hopeless helpless or worthless today. Sleep has improved significantly. Appetite is within normal limits. Patient is tolerating a trial of Risperdal well. Reports decreased racing thoughts and decreased distractibility. Denies any passive or active morbid thoughts. Plan is to discharge tomorrow. No rashes reported. Anxiety distress is mild. Review of Systems: Constitutional:No fever, no weight loss Eyes:No diplopia ENT:No sinus drainage CV:No chest pain. No ankle swelling Resp:No dyspnea. No wheezing GI:No abdominal pain.No abdominal distention :No dysuria Neuro:No headache Integumentary:No skin rash MuscSkel:No arthralgias Endo:No polyuria Heme/lymphatic:No apparent lymphadenopathy Allergic/Immunologic:No hives Physical Examination: Vital Signs: BP 123/86 Pulse 92 Temp 98.2 F (36.8 C) (Oral) Resp 16 Ht 5' 3 Wt 131.5 kg (290 lb) SpO2 96% BMI 51.37 kg/m Mental Status Evaluation: General Appearance & Behavior: age appropiate, obese, and cooperative, fair eye contact Grooming & Hygiene: Fair hygiene and grooming Psychomotor Activity: Normal motor activity Gait & Station Left-sided hemiplegic gait Speech: Less hyperverbal Flow of Thought: Decreased flight of ideas and racing thoughts Thought Associations: Intact Content of Thought: No evidence of suicidal ideations/homicidal ideations/psychosis Mood: Okay Affect: Slightly irritable affect today Insight: fair Judgment: fair Orientation: alert and oriented to person, place, time, and circumstances Memory: intact recent and remote Attention: Improving Concentration: Adequate Language: Average Fund of Knowledge: estimated average intelligence Laboratory and Additional Data Reviewed: Laboratory 01/10/22 6:24 PM lithium level: 0.8 Medications 01/10/22 6:24 PM Transcriptions 01/10/22 6:24 PM Treatment options and alternatives reviewed with patient. Risks, benefits, side effects of all psychiatric medications discussed with patient and informed consent obtained. All questions were answered. Physical examination Lab testing as appropriate Precautions -suicide PRN medications for agitation Collateral history from family/friends/providers Request/review prior records director of perioperative services assessment/linkage/care coordination Group participation/[place] Supportive psychotherapy/structured supportive care Continue Lithobid 450 mg p.o. twice daily Continue lamotrigine 200 mg p.o. daily Increase risperidone to 3 mg p.o. daily at bedtime Continue hydroxyzine 50 mg p.o. 3 times daily as needed anxiety Aftercare planning once stable Elli Reich MD 01/10/2022 6:24 PM 1715 - 1800 Recreational Group - Pt sitting out in the [facility] area playing a board game with student nurses when approached about attending group, Pt brought self to group willingly. Pt participated in group playing a leisure game called Bubble Talk with staff and student nurses. Pt played independently and stayed focused during group. Pt interacted well and put forth good effort during the game. Pt was smiling laughing, and friendly during group. Pt was attentive and receptive with the activity. Wellness: Pt attended group focusing on introducing relaxation tape of [place] Hamm[place]. Pt shared she was unable to picture herself lying in the hammock due to feeling she would fall out on her head. Pt shared of being able to picture sections of the visualization such as the squirrels that were mentioned. Shared her peaceful place at home is sitting on her back porch taking in the nature. Met with the patient to see how she was doing. Patient reported that she feels as though she is better and likes being on unit B than unit C. Patient continues to go to groups and be involved in her treatment. Patient reported that Dr. Reich advised her that she would be discharged tomorrow. Discharge planning completed and patient identified no other needs for discharge at this time . Patient's status/progress reviewed in morning safety huddle. Nursing reported that the patient slept 8.5 hours, refused enderall, and has been labile. Patient rating dep a 4 and anxiety a 7. Clinical team met and the patient's case staffed. Dr. Reich to see the patient and make evaluation for discharge. I stopped to see the patient but nursing was in with the patient as patient getting EKG. Goal Group: Pt shared of not meeting goal from yesterday Shared feeling grumpy and pissed off. 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 Claims she informed staff she did not want awakened until group time at 9 and was awakened at 8 a.m. this morning and was very upset about this. Stated goal for today as to get in a better mood and take a nap This goal is important because I need sleep and I am not normally in a bad mood. Life skills: Pt attended group focusing on discharge planning, identifying the following: What she is looking forward to: sleep, having a cigarette, try to remember to take care of myself first What worries her: that my meds won't help and I'll end up back at square one. Something she feels confident about: That I feel well enough to get back to work. Feel well enough to not just to go through the motions. 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 4330 Pt resting quietly in bed at start of shift. 0753 Nurse awakened pt to obtain vitals; pt reluctantly agreed and c/o feeling tired. Nurse introduced self and informed pt of scheduled Norvasc and Inderal this morning. Pt states I won't be taking that Inderal; I was popping those things like candy and they weren't helping at all; I wish the doctor would just listen. Pt compliant with vitals; all WNL. 0822 Pt is ambulatory at the nurses station. Describes mood as grumpy. Rates depression 08/28 and anxiety 02/27. Pt med compliant, minus the Inderal; denies having any side effects; mouth check completed. Reports sleep fluctuates d/t pain and states these beds are awful. Appetite is good. Denies having any suicidal ideations or thoughts to harm self or others. Pt was offered a mask and received education on importance of wearing one; pt declined. Denies having any other concerns at this time. 0920 Pt attending group. 1020 EKG completed by this nurse and Del, psychiatric rn. 1130 Pt eating lunch in the lounge with peers. 1405 Pt attending group. 1630 Pt eating dinner in the lounge. 1720 Pt attending group. 1845 Pt socializing with nursing students in the lounge at end of shift. Pt has stayed out of her room all day and has been pleasant. RN came on shift and noted vitals out of parameter during chart review, retaken and within order limits. Patient states she was extremely anxious when moving units and was talking a lot during previous assessment. States feels more relaxed now, talking to male peers and coloring in lounge. As night progressed, patient more irritable, changing story, inability to tolerate redirection and agitated about admission. Reports admission is a waste of her time, she isn't getting the therapy groups she needs or medications she needs. She does not want multiple medications and wants specific 1:1 therapy to fit her stressors. 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 Angry that she cannot take 2 hydroxyzine PRN's at once for sleep and does not want to take Trazodone for sleep. Patient demanding, poor insight, and labile mood/affect. Patient noted to change story from what she told other RN to what she told this Rn this evening. Told other RN she was okay with Trazodone if needed. She reported that she does enjoy male peers and plans to stay out of her room. Rn asked about goals for stay and tomorrow to which patient replied I don't know. I don't have any. RN offered multiple possible goals for patient and patient unable to pick any of them, continued to focus on agitation that admission was not fitting her. Voiced irritation at physician for not giving her the medications she wants. Patient also requested not to be woken up for breakfast, but would like woken up for groups. She was encouraged to be open to treatment being provided by physician. Patient retired to bed, plans to discuss concerns with physician tomorrow. Sleep: 8.5 hours, uninterrupted Orders to be completed: EKG (passed along in report to day shift, no staff member available on this shift to complete order) UC - pending PRNs: 2036- Hydroxyzine PRN for sleep 1800 Pt is clean and freshly showered. Pt is dressed casually in street clothes and sitting in the dining area. Pt is calm and cooperative. Good eye contact. Pt denies SI/HI/AH/VH and contracts safety with the staff. Pt slept 10+hrs and has a good appetite. Pt rates anxiety 7/10 (0/10), depression 4/10 (0/10), pain 6/10 (0/10). Pt states coping skills that are; listening to country music, watching to youtube, hanging with friends, and chain smoking on the deck while watching wildlife. Pt states goal is to Get to feeling more like myself for my friends, family, and coworkers. Patient refused scheduled inderal this evening, reason being per pt she thought it was ordered as needed and does not feel she needs this medication at this time. Patient was educated on this medication as well as informed this medication is generally ordered scheduled to be therapeutic verses PRN. Patient requested her shower necessities, provided, thanked this senior copywriter. 18:15 Spending time in the lounge with peer. Social as well as smiling spontaneously. 18:32 Encouraged patient to talk with Dr. Reich tomorrow regarding the Inderal, patient stated, Well I'm taking the norvasc. Patient has been informed the norvasc is administered for being hypertensive. This senior copywriter educated patient earlier on Inderal as charged above. 18:[address] Reich via secure chat message of patient refusing evening dose of Inderal as well as informing him of patient being encouraged to discuss this medication with him tomorrow. 18:39 acknowledged message sent by this senior copywriter regarding pt refusing evening dose of Inderal. 1640 Per Rebecca, rn discharge, patient to be moved to B unit bed 3315 bed 2. Patient belongings moved. Patient educated on room move. Patient reports that she does not want a roommate. Education provided. Report given from this nurse to Shabnam SLAUGHTER. 1706 Patient escorted to B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 much to take when to take this reasons to take this lamoTRIgine 200 MG tablet Commonly known as: LAMICTAL Take 1 (one) tablet (200 mg total) by mouth daily . What changed: medication strength how much to take CONTINUE taking these medications amLODIPine 10 MG tablet Commonly known as: NORVASC cholecalciferol (vitamin D3) 1,250 mcg (50,000 unit) capsule lithium 450 MG CR tablet Commonly known as: ESKALITH Take 1 (one) tablet (450 mg total) by mouth 2 (two) times a day . omeprazole 40 MG capsule Commonly known as: PRILOSEC STOP taking these medications propranoloL 20 MG tablet Commonly known as: INDERAL Where to Get Your Medications These medications were sent to [id number] - [place], [place] - [address] [facility] [address] [facility] [id number] hydrOXYzine 50 MG tablet lamoTRIgine 200 MG tablet lithium 450 MG CR tablet nicotine 21 mg/24 hr nitrofurantoin (macrocrystal-monohydrate) 100 MG capsule risperiDONE 3 MG tablet This patient is being discharged on one antipsychotic. Diagnostic work up including: BMI, blood pressure, hemoglobin A1c or blood glucose, and lipid panel have been completed in the past year performed within [facility] and available in EPIC. Glucose <126mg/dL, no indication of impaired glucose tolerance or insulin resistance in fasting or nonfasting state. Tobacco cessation medication ordered for patient at this time. Disposition: Home Follow Up: [facility] [address] [place] [address] Follow up Patient will coordinate her own followup and did not wnat any appointments scheduled Discharge Diet: Resume home diet Additional Information: Avoid NSAIDs while taking lithium. Use Tylenol instead for mild to moderate pain/headaches Provider(s): Primary Care: Lauro Quarles MD Address: [address] [place] [address] / [place] [address] To contact Elli Reich MD or photogrammetric compilation specialist physician, call [phone] ([place]) for 24 hour/7 day for emergencies related to inpatient stay or to obtain results of studies pending at discharge. Patient instructions, including activity, were given to the patient/family at discharge. Please see the After Visit Summary in the medical record for details. Time spent on discharge: > 30 minutes Completed by: Elli Reich on 01/11/22, 12:40 PM documented in this encounter [facility] 01-11-2022 Note Formatting of this n ote might be different from the original. Problem: Actual or potential alteration in health Goal: Absence of healthcare acquired conditions Outcome: Completed Goal: Knowledge of Interdisciplinary Plan of Care Outcome: Completed Goal: Knowledge of Enviroment Outcome: Completed Problem: Pain Goal: Manage acute pain Outcome: Completed Goal: Manage chronic pain Outcome: Completed Goal: Reduced pain sensation Outcome: Completed Goal: Achievement of comfort function goal Outcome: Completed Problem: Health Maintenance - Impaired Goal: Able to perform ADL Outcome: Completed Goal: Improved sleep pattern Outcome: Completed Problem: Mood - Altered Goal: Improved mood stability Outcome: Completed Problem: Self-esteem - Low Goal: Improved self-esteem Outcome: Completed Problem: Plan for Discharge Goal: Knowledge of discharge plan and instructions Outcome: Completed Goal: Knowledge of medication management Outcome: Completed Goal: Knowledge of need for follow-up care Outcome: Completed [facility] 01-11-2022 Miscellaneous Notes Problem: Actual or potential alteration in health Goal: Absence of healthcare acquired conditions Outcome: Completed Goal: Knowledge of Interdisciplinary Plan of Care Outcome: Completed Goal: Knowledge of Enviroment Outcome: Completed Problem: Pain Goal: Manage acute pain Outcome: Completed Goal: Manage chronic pain Outcome: Completed Goal: Reduced pain sensation Outcome: Completed Goal: Achievement of comfort function goal Outcome: Completed Problem: Health Maintenance - Impaired Goal: Able to perform ADL Outcome: Completed Goal: Improved sleep pattern Outcome: Completed Problem: Mood - Altered Goal: Improved mood stability Outcome: Completed Problem: Self-esteem - Low Goal: Improved self-esteem Outcome: Completed Problem: Plan for Discharge Goal: Knowledge of discharge plan and instructions Outcome: Completed Goal: Knowledge of medication management Outcome: Completed Goal: Knowledge of need for follow-up care Outcome: Completed Problem: Actual or potential alteration in health Goal: Absence of healthcare acquired conditions 01/10/20222344 by Sonia Rodriguez RN Outcome: Met 01/10/20222339 by Sonia Rodriguez RN Outcome: Met Goal: Knowledge of Enviroment 01/10/20222344 by Sonia Rodriguez RN Outcome: Met 01/10/20222339 by Sonia Rodriguez RN Outcome: Met Problem: Health Maintenance - Impaired Goal: Able to perform ADL 01/10/20222344 by Sonia Rodriguez RN Outcome: Met 01/10/20222339 by Sonia Rodriguez RN Outcome: Met Problem: Actual or potential alteration in health Goal: Knowledge of Interdisciplinary Plan of Care 01/10/20222344 by Sonia Rodirguez RN Outcome: Partially Met 01/10/20222339 by Sonia Rodriguez RN Outcome: Partially Met Problem: Pain Goal: Manage acute pain 01/10/20222344 by Sonia Rodriguez RN Outcome: Partially Met 01/10/20222339 by Sonia Rodriguez RN Outcome: Partially Met Goal: Manage chronic pain 01/10/20222344 by Sonia Rodriguez RN Outcome: Partially Met 01/10/20222339 by Sonia Rodriguez RN Outcome: Partially Met Goal: Reduced pain sensation 01/10/20222344 by Sonia Rodriguez RN Outcome: Partially Met 01/10/20222339 by Sonia Rodriguez RN Outcome: Partially Met Goal: Achievement of comfort function goal 01/10/20222344 by Sonia Rodriguez RN Outcome: Partially Met 01/10/20222339 by Sonia Rodriguez RN Outcome: Partially Met Problem: Health Maintenance - Impaired Goal: Improved sleep pattern 01/10/20222344 by Sonia Rodriguez RN Outcome: Partially Met 01/10/20222339 by Sonia Rodriguez RN Outcome: Partially Met Problem: Mood - Altered Goal: Improved mood stability 01/10/20222344 by Sonia Rodriguez RN Outcome: Partially Met 01/10/20222339 by Sonia Rodriguez RN Outcome: Partially Met Problem: Self-esteem - Low Goal: Improved self-esteem 01/10/20222344 by Sonia Rodriguez RN Outcome: Partially Met 01/10/20222339 by Sonia Rodriguez RN Outcome: Partially Met Problem: Plan for Discharge Goal: Knowledge of discharge plan and instructions 01/10/20222344 by Sonia Rodriguez RN Outcome: Partially Met 01/10/20222339 by Sonia Rodriguez RN Outcome: Not Addressed Goal: Knowledge of medication management 01/10/20222344 by Sonia Rodriguez RN Outcome: Partially Met 01/10/20222339 by Sonia Rodriguez RN Outcome: Partially Met Goal: Knowledge of need for follow-up care 01/10/20222344 by Sonia Rodriguez RN Outcome: Partially Met 01/10/20222339 by Sonia Rodriguez RN Outcome: Partially Met Problem: Actual or potential alteration in health Goal: Knowledge of Interdisciplinary Plan of Care 01/10/20222344 by Sonia Rodriguez RN Outcome: Partially Met 01/10/20222339 by Sonia Rodriguez RN Outcome: Partially Met Problem: Pain Goal: Manage acute pain 01/10/20222344 by Sonia Rodriguez RN Outcome: Partially Met 01/10/20222339 by Sonia Rodriguez RN Outcome: Partially Met Goal: Manage chronic pain 01/10/20222344 by Sonia Rodriguez RN Outcome: Partially Met 01/10/20222339 by Sonia Rodriguez RN Outcome: Partially Met Goal: Reduced pain sensation 01/10/20222344 by Sonia Rodriguez RN Outcome: Partially Met 01/10/20222339 by Sonia Rodriguez RN Outcome: Partially Met Goal: Achievement of comfort function goal 01/10/20222344 by Sonia Rodriguez RN Outcome: Partially Met 01/10/20222339 by Sonia Rodriguez RN Outcome: Partially Met Problem: Health Maintenance - Impaired Goal: Improved sleep pattern 01/10/20222344 by Sonia Rodriguez RN Outcome: Partially Met 01/10/20222339 by Sonia Rodriguez RN Outcome: Partially Met Problem: Mood - Altered Goal: Improved mood stability 01/10/20222344 by Sonia Rodriguez RN Outcome: Partially Met 01/10/20222339 by Sonia Rodriguez RN Outcome: Partially Met Problem: Self-esteem - Low Goal: Improved self-esteem 01/10/20222344 by Sonia Rodriguez RN Outcome: Partially Met 01/10/20222339 by Sonia Rodriguez RN Outcome: Partially Met Problem: Plan for Discharge Goal: Knowledge of discharge plan and instructions 01/10/20222344 by Sonia Rodriguez RN Outcome: Partially Met 01/10/20222339 by Sonia Rodriguez RN Outcome: Not Addressed Goal: Knowledge of medication management 01/10/20222344 by Sonia Rodriguez RN Outcome: Partially Met 01/10/20222339 by Sonia Rodriguez RN Outcome: Partially Met Goal: Knowledge of need for follow-up care 01/10/20222344 by Sonia Rodriguez RN Outcome: Partially Met 01/10/20222339 by Sonia Rodriguez RN Outcome: Partially Met Problem: Actual or potential alteration in health Goal: Absence of healthcare acquired conditions Outcome: Met Goal: Knowledge of Enviroment Outcome: Met Problem: Health Maintenance - Impaired Goal: Able to perform ADL Outcome: Met Problem: Actual or potential alteration in health Goal: Knowledge of Interdisciplinary Plan of Care Outcome: Partially Met Problem: Pain Goal: Manage acute pain Outcome: Partially Met Goal: Manage chronic pain Outcome: Partially Met Goal: Reduced pain sensation Outcome: Partially Met Goal: Achievement of comfort function goal Outcome: Partially Met Problem: Health Maintenance - Impaired Goal: Improved sleep pattern Outcome: Partially Met Problem: Mood - Altered Goal: Improved mood stability Outcome: Partially Met Problem: Self-esteem - Low Goal: Improved self-esteem Outcome: Partially Met Problem: Plan for Discharge Goal: Knowledge of medication management Outcome: Partially Met Goal: Knowledge of need for follow-up care Outcome: Partially Met Problem: Plan for Discharge Goal: Knowledge of discharge plan and instructions Outcome: Not Addressed Problem: Plan for Discharge Goal: Knowledge of discharge plan and instructions Outcome: Not Addressed Problem: Plan for Discharge Goal: Knowledge of discharge plan and instructions Outcome: Not Addressed Problem: Actual or potential alteration in health Goal: Knowledge of Interdisciplinary Plan of Care Outcome: Partially Met Problem: Pain Goal: Manage acute pain Outcome: Partially Met Goal: Manage chronic pain Outcome: Partially Met Goal: Reduced pain sensation Outcome: Partially Met Goal: Achievement of comfort function goal Outcome: Partially Met Problem: Health Maintenance - Impaired Goal: Improved sleep pattern Outcome: Partially Met Problem: Mood - Altered Goal: Improved mood stability Outcome: Partially Met Problem: Self-esteem - Low Goal: Improved self-esteem Outcome: Partially Met Problem: Plan for Discharge Goal: Knowledge of medication management Outcome: Partially Met Goal: Knowledge of need for follow-up care Outcome: Partially Met Problem: Actual or potential alteration in health Goal: Absence of healthcare acquired conditions Outcome: Met Goal: Knowledge of Enviroment Outcome: Met Problem: Health Maintenance - Impaired Goal: Able to perform ADL Outcome: Met Problem: Actual or potential alteration in health Goal: Absence of healthcare acquired conditions Outcome: Met Goal: Knowledge of Interdisciplinary Plan of Care Outcome: Partially Met Goal: Knowledge of Enviroment Outcome: Partially Met Problem: Pain Goal: Manage acute pain Outcome: Partially Met Goal: Manage chronic pain Outcome: Partially Met Goal: Reduced pain sensation Outcome: Partially Met Goal: Achievement of comfort function goal Outcome: Partially Met Problem: Health Maintenance - Impaired Goal: Able to perform ADL Outcome: Partially Met Goal: Improved sleep pattern Outcome: Partially Met Problem: Mood - Altered Goal: Improved mood stability Outcome: Partially Met Problem: Self-esteem - Low Goal: Improved self-esteem Outcome: Partially Met Problem: Plan for Discharge Goal: Knowledge of discharge plan and instructions Outcome: Not Addressed Goal: Knowledge of medication management Outcome: Partially Met Goal: Knowledge of need for follow-up care Outcome: Not Addressed Problem: Actual or potential alteration in health Goal: Absence of healthcare acquired conditions Outcome: Met Goal: Knowledge of Interdisciplinary Plan of Care Outcome: Met Goal: Knowledge of Enviroment Outcome: Met Problem: Pain Goal: Manage chronic pain Outcome: Met Goal: Reduced pain sensation Outcome: Met Goal: Achievement of comfort function goal Outcome: Met Problem: Health Maintenance - Impaired Goal: Able to perform ADL Outcome: Met Problem: Self-esteem - Low Goal: Improved self-esteem Outcome: Not Met Problem: Pain Goal: Manage acute pain Outcome: Partially Met Problem: Health Maintenance - Impaired Goal: Improved sleep pattern Outcome: Partially Met Problem: Mood - Altered Goal: Improved mood stability Outcome: Partially Met Problem: Plan for Discharge Goal: Knowledge of discharge plan and instructions Outcome: Not Addressed Goal: Knowledge of medication management Outcome: Not Addressed Goal: Knowledge of need for follow-up care Outcome: Not Addressed Problem: Violence - Risk of, Self/Other-Directed Goal: Absence of violence Outcome: Completed Problem: Actual or potential alteration in health Goal: Absence of healthcare acquired conditions Outcome: Met Problem: Health Maintenance - Impaired Goal: Able to perform ADL Outcome: Met Problem: Violence - Risk of, Self/Other-Directed Goal: Absence of violence Outcome: Met Problem: Actual or potential alteration in health Goal: Knowledge of Interdisciplinary Plan of Care Outcome: Partially Met Goal: Knowledge of Enviroment Outcome: Partially Met Problem: Pain Goal: Manage acute pain Outcome: Partially Met Goal: Manage chronic pain Outcome: Partially Met Goal: Reduced pain sensation Outcome: Partially Met Goal: Achievement of comfort function goal Outcome: Partially Met Problem: Health Maintenance - Impaired Goal: Improved sleep pattern Outcome: Partially Met Problem: Mood - Altered Goal: Improved mood stability Outcome: Partially Met Problem: Self-esteem - Low Goal: Improved self-esteem Outcome: Partially Met Problem: Plan for Discharge Goal: Knowledge of discharge plan and instructions Outcome: Partially Met Goal: Knowledge of medication management Outcome: Partially Met Goal: Knowledge of need for follow-up care Outcome: Partially Met Problem: Actual or potential alteration in health Goal: Absence of healthcare acquired conditions Outcome: Partially Met Goal: Knowledge of Interdisciplinary Plan of Care Outcome: Partially Met Goal: Knowledge of Enviroment Outcome: Partially Met Problem: Pain Goal: Manage acute pain Outcome: Partially Met Goal: Manage chronic pain Outcome: Partially Met Goal: Reduced pain sensation Outcome: Partially Met Goal: Achievement of comfort function goal Outcome: Partially Met Problem: Health Maintenance - Impaired Goal: Able to perform ADL Outcome: Partially Met Goal: Improved sleep pattern Outcome: Partially Met Problem: Actual or potential alteration in health Goal: Absence of healthcare acquired conditions Outcome: Met Problem: Health Maintenance - Impaired Goal: Able to perform ADL Outcome: Met Problem: Violence - Risk of, Self/Other-Directed Goal: Absence of violence Outcome: Met Problem: Actual or potential alteration in health Goal: Knowledge of Interdisciplinary Plan of Care Outcome: Partially Met Goal: Knowledge of Enviroment Outcome: Partially Met Problem: Pain Goal: Manage acute pain Outcome: Partially Met Goal: Manage chronic pain Outcome: Partially Met Goal: Reduced pain sensation Outcome: Partially Met Goal: Achievement of comfort function goal Outcome: Partially Met Problem: Health Maintenance - Impaired Goal: Improved sleep pattern Outcome: Partially Met Problem: Mood - Altered Goal: Improved mood stability Outcome: Partially Met Problem: Self-esteem - Low Goal: Improved self-esteem Outcome: Partially Met Problem: Plan for Discharge Goal: Knowledge of discharge plan and instructions Outcome: Not Addressed Goal: Knowledge of medication management Outcome: Not Addressed Goal: Knowledge of need for follow-up care Outcome: Not Addressed Behavioral Health Initial Treatment Plan Date: 01/08/2022 Time: 2:42 PM Patient Name: Wayne Moreno Date of : 1985 Sex: Female Admit Date/Time: 01/07/2022 6:09 PM Diagnosis Bipolar disorder, type I, mixed, severe with elevated anxiety distress Global assessment of functioning at admission: 45 Reason for Hospitalization Reason for Hospitalization: Suicidal ideation Expected Discharge Date: 01/12/2022 ELOS: 5 days Precautions Precautions: Suicide Patient Presenting Issues: Patient's Primary Presenting Issue Patient's Primary Presenting Issue: Suicidal Suicidal Symptoms: Ideation Suicidal Goals: Reduce and eliminate suicidal ideation Days To Improvement Of Goal: Ongoing and continuous Suicidal Treatment Interventions: Medication management/evaluation, Medication education, Group psychoeduction, Handouts psychoeducation, Individual psychoeducation, Inpatient/Residential treatment Patient's Secondary Presenting Issue Patient's Secondary Presenting Issue: Mood instablilty Mood Instability Symptoms: Depression, Lainey, Anxiety Mood Instability Treatment Goals: Improve and stabilize mood and reduce anxiety distress Days To Improvement Of Goal: Ongoing and continuous Mood Instability Interventions: Medication management/evaluation, Medication education, Group psychoeduction, Handouts psychoeducation, Individual psychoeducation, Develop personal safety plan, Inpatient/Residential treatment, Aftercare arrangements Patient's Stated Issue Patient Stated Issue: Irritability, depressed mood, elevated anxiety, suicidal ideation, sleep disturbance, appetite disturbance, r Patient Stated Issue Goals: Feel more stable, not have anxiety, sleep better, improve coping skills, not have suicidal thoughts Patient Stated Issue Interventions: Medication education, Handouts psychoeducation, Group psychoeduction, Individual psychoeducation, Develop personal safety plan, Inpatient/Residential treatment Precautions Precautions: Suicide Seclusion/Restraint Date: None Interventions to reduce Seclusion/Restraint: Staff engagement, behavior interventions, patient education, medications for acute agitation Patient Strengths Patient Strengths: Employment, Housing, [employer], Mental health services Patient Limitations Patient Limitations: (Cannabis abuse) Discharge Needs Anticipated Facility Type: Psychiatric aftercare Criteria For Discharge Criteria For Discharge: Maximum benefit obtained, Goals met Additional Comments: None Physician, Registered Nurse, Air Quality Chemist, Adjunct Therapist included in treatment team discussion. Treatment team members present: Yes Patient Signature Date Patient's Response To Treatment Plan: Physician Signature Date BEHAVIORAL HEALTH EVALUATION REASON FOR ADMISSION: I haven;t been right for a year. I've been missing work and I've been seclusive. 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 TYPICAL DAY: going to smoke, drink coffee, go right back to bed LEISURE INTERESTS: board games and cards SUPPORTS: my mom. Has a counselor and a therapist and the [facility] in [place]. STRENGTHS: I've got a damn good heart, loyal to a fault PT'S GOAL: :to find ways to deal with my everyday stressors, work on my anxiety, get properly diagnosed and get treated ADDITIONAL INFORMATION:Pt was pressured and hyper verbal, Pleasant and cooperative. GROUPS: Pt will be provided the opportunity and encouraged to attend Goal Group, AM Warm Up, Life Skills, Recreational Therapy to educate pt on coping skills, benefits of recreational outlets and exercise, improve communication skills in preparation for discharge in the future. Problem: Actual or potential alteration in health Goal: Absence of healthcare acquired conditions Outcome: Not Addressed Goal: Knowledge of Interdisciplinary Plan of Care Outcome: Not Addressed Goal: Knowledge of Enviroment Outcome: Not Addressed Problem: Pain Goal: Manage acute pain Outcome: Not Addressed Goal: Manage chronic pain Outcome: Not Addressed Goal: Reduced pain sensation Outcome: Not Addressed Goal: Achievement of comfort function goal Outcome: Not Addressed Problem: Health Maintenance - Impaired Goal: Able to perform ADL Outcome: Not Addressed Goal: Improved sleep pattern Outcome: Not Addressed Problem: Mood - Altered Goal: Improved mood stability Outcome: Not Addressed Problem: Self-esteem - Low Goal: Improved self-esteem Outcome: Not Addressed Problem: Violence - Risk of, Self/Other-Directed Goal: Absence of violence Outcome: Not Addressed Problem: Plan for Discharge Goal: Knowledge of discharge plan and instructions Outcome: Not Addressed Goal: Knowledge of medication management Outcome: Not Addressed Goal: Knowledge of need for follow-up care Outcome: Not Addressed documented in this encounter [facility] 01-10-2022 Note Formatting of this n ote might be different from the original. Problem: Actual or potential alteration in health Goal: Absence of healthcare acquired conditions 01/10/20222344 by Sonia Rodriguez RN Outcome: Met 01/10/20222339 by Sonia Rodriguez RN Outcome: Met Goal: Knowledge of Enviroment 01/10/20222344 by Sonia Rodriguez RN Outcome: Met 01/10/20222339 by Sonia Rodriguez RN Outcome: Met Problem: Health Maintenance - Impaired Goal: Able to perform ADL 01/10/20222344 by Sonia Rodriguez RN Outcome: Met 01/10/20222339 by Sonia Rodriguez RN Outcome: Met Problem: Actual or potential alteration in health Goal: Knowledge of Interdisciplinary Plan of Care 01/10/20222344 by Sonia Rodriguez RN Outcome: Partially Met 01/10/20222339 by Sonia Rodriguez RN Outcome: Partially Met Problem: Pain Goal: Manage acute pain 01/10/20222344 by Sonia Rodriguez RN Outcome: Partially Met 01/10/20222339 by Sonia Rodriguez RN Outcome: Partially Met Goal: Manage chronic pain 01/10/20222344 by Sonia Rodriguez RN Outcome: Partially Met 01/10/20222339 by Sonia Rodriguez RN Outcome: Partially Met Goal: Reduced pain sensation 01/10/20222344 by Sonia Rodriguez RN Outcome: Partially Met 01/10/20222339 by Sonia Rodriguez RN Outcome: Partially Met Goal: Achievement of comfort function goal 01/10/20222344 by Sonia Rodriguez RN Outcome: Partially Met 01/10/20222339 by Sonia Rodriguez RN Outcome: Partially Met Problem: Health Maintenance - Impaired Goal: Improved sleep pattern 01/10/20222344 by Sonia Rodriguez RN Outcome: Partially Met 01/10/20222339 by Sonia Rodriguez RN Outcome: Partially Met Problem: Mood - Altered Goal: Improved mood stability 01/10/20222344 by Sonia Rodriguez RN Outcome: Partially Met 01/10/20222339 by Sonia Rodriguez RN Outcome: Partially Met Problem: Self-esteem - Low Goal: Improved self-esteem 01/10/20222344 by Sonia Rodriguez RN Outcome: Partially Met 01/10/20222339 by Sonia Rodriguez RN Outcome: Partially Met Problem: Plan for Discharge Goal: Knowledge of discharge plan and instructions 01/10/20222344 by Sonia Rodriguez RN Outcome: Partially Met 01/10/20222339 by Sonia Rodriguez RN Outcome: Not Addressed Goal: Knowledge of medication management 01/10/20222344 by Sonia Rodriguez RN Outcome: Partially Met 01/10/20222339 by Sonia Rodriguez RN Outcome: Partially Met Goal: Knowledge of need for follow-up care 01/10/20222344 by Sonia Rodriguez RN Outcome: Partially Met 01/10/20222339 by Sonia Rodriguez RN Outcome: Partially Met Problem: Actual or potential alteration in health Goal: Knowledge of Interdisciplinary Plan of Care 01/10/20222344 by Sonia Rodriguez RN Outcome: Partially Met 01/10/20222339 by Sonia Rodriguez RN Outcome: Partially Met Problem: Pain Goal: Manage acute pain 01/10/20222344 by Sonia Rodriguez RN Outcome: Partially Met 01/10/20222339 by Sonia Rodriguez RN Outcome: Partially Met Goal: Manage chronic pain 01/10/20222344 by Sonia Rdoriguez RN Outcome: Partially Met 01/10/20222339 by Sonia Rodriguez RN Outcome: Partially Met Goal: Reduced pain sensation 01/10/20222344 by Sonia Rodriguez RN Outcome: Partially Met 01/10/20222339 by Sonia Rodriguez RN Outcome: Partially Met Goal: Achievement of comfort function goal 01/10/20222344 by Sonia Rodriguez RN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 time eating. We discussed lowering the dose and only taking Zyprexa 10 mg during the day. We discussed obtaining lab work and then reviewing if she is a candidate for Metformin. Will collaborate with PCP as needed. Tolerated the decrease in Cymbalta dose. In agreement to discontinue the medication. Will assess if she needs to restart a low dose of neuropathic pain. Did like talking to Dr. Kumar. Has another appointment this coming Sunday. She has not needed as much propranolol as before to manage her anxiety at work especially after taking Zyprexa during the day. She denies cravings for marijuana and has been sober without it for 4 weeks now. She has been drinking 32 oz coffee every morning with cream and sugar. Interval Progress: Improved Risks and benefits of the medication, including any black box warnings, were discussed with the patient. Social History: See HPI PATIENT DATA: Generalized Anxiety Disorder Scale (FELIPE-7) FELIPE - 7 SCORES 09/27/2021 10/21/2021 10/28/2021 FELIPE-7 Score 19 19 20 (0-4) minimal anxiety, (5-9) mild anxiety, (10-14) moderate anxiety, (15-21) severe anxiety Patient Health Questionnaire (PHQ-9) PHQ-9 09/27/2021 10/21/2021 10/28/2021 Score 24 23 26 (0-4) minimal depression, (5-9) mild depression, (10-14) moderate depression, (15-19) moderately severe depression, (20-27) severe depression ROS: General: Negative for fever, malaise, unintentional weight loss HEENT: Negative for recent changes in vision or hearing, no nasal drainage Respiratory: Negative for cough, wheezing or SOB Cardiovascular: Negative for chest pain GI: Negative for nausea, vomiting, change in bowel habits MUSCULOSKELETAL: Negative for acute back or joint pain SKIN: Negative for rash NEURO: Negative for headaches, seizures, focal neurological deficits All other systems negative. VITAL SIGNS: None obtained due to virtual visit. BP Temp Pulse Resp SpO2 MENTAL STATUS EXAMINATION: Appearance: Appropriately groomed, appears stated age Behavior: Appropriately engaged Psychomotor: No psychomotor agitation Cognition Level of Consciousness: Awake and alert. No fluctuation in wakefulness. Orientation: Grossly oriented Memory: Intact Attention/Concentration: Good Fund of Knowledge: Able to demonstrate an awareness of current events. Mood: Euthymic Affect: Congruent to mood Speech/Language: Appropriate tone, prosody, katie, phonetics, and syntax Thought Form: Goal-directed. No loosening of associations. Thought Content: No delusions noted or endorsed. Perceptual Disturbances: Did not appear to respond to auditory stimuli. Safety: Suicidal Ideations: No suicidal ideation, intent or plan. Homicidal Ideations: No homicidal ideation, intent or plan. Insight: Appropriate Judgment: Appropriate I spent a total of 28 minutes on the date of the service which included preparing to see the patient, [id number] patient care, completing clinical documentation, and counseling and educating the patient/family/caregiver, ordering medications/labs. Richard Boyer APRN.VICTOR M November 04, 2021 1:59 PM documented in this encounter [facility] 10-24-2021 History of Present illness Narrative Images from the original note were not included. PSYC FOLLOW UP - PSYCHIATRIC PROGRESS NOTE DIAGNOSIS: 1. FELIPE 2. Bipolar 2 disorder 3. History of Marijuana use GAF: -50-41 Serious symptoms or any serious impairment in social, occupational or school functioning. TREATMENT PLAN: 1. Take Cymbalta every other day till next appointment. 2. Continue Zyprexa at 10 mg at bedtime and Lamictal at the same dose to address mood related symptoms. 3. Utilize hydroxyzine at bedtime to help with anxiety and sleep difficulties. 4. Utilize Inderal to help with somatic symptoms of anxiety. 5. Begin individual psychotherapy. 6. Encouraged patient to consider IOP. Currently patient does not wish to pursue due to morning hours. There are no evening IOP options in patient's are of residence. 7. Encouraged to continue staying sober from marijuana use. 8. Follow up in 10 days. The effects and side effects of all the medications were reviewed in detail with the patient. She is in agreement with the treatment plan. She denies any involuntary movement related side effects. Patient is aware to reach out with any questions, concerns, or worsening of symptoms prior to the next appointment. Patient is aware of the rash side effect related to Lamictal. CC: Follow up regarding mood and anxiety With the patient consent, visit was performed virtually. HPI: Wayne Moreno is a 35 year old Female with a history of bipolar disorder, FELIPE and history of marijuana use presenting today for follow-up. Date of last visit: 10/04/2021 Plan from last visit: 1. Discontinue Seroquel due to lack of efficacy. 2. Start Zyprexa to manage her mood, anxiety, and sleep concerns. 3. Restart Cymbalta to help with her rebound anxiety. She would benefit from a more gradual taper off this medication. 4. Continue Inderal at the same dose to help her manage her somatic anxiety symptoms. 5. Begin individual psychotherapy. 6. Encouraged patient to consider IOP. Currently patient does not wish to pursue due to morning hours. There are no evening IOP options in patient's area of residence. 7. She was counseled to discontinue marijuana use. 8. Follow up in 3 weeks. Today Wayne shares that she has been struggling with irritability and anxiety. Restarting Cymbalta has been helpful for neuropathy. She would still like to discontinue Cymbalta as she is concerned about it worsening her mood and anxiety. We discussed taking it every other day and gradually discontinuing Cymbalta to prevent any symptoms of rebound anxiety. Patient struggles with anxiety and difficulty sleeping. Takes 10 mg of Zyprexa around 8 to 9 pm. She does not fall asleep until 2 to 3 am in the morning. She takes 2 benadryl at night. She wakes up around 5 pm. Does verbalize struggling with excessive sleep. She has been getting into arguments with her best friend. Uses sleep as an avoidant coping mechanism. She feels that anxiety prevents her from working routinely. 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 Interval Progress: Slightly improved Risks and benefits of the medication, including any black box warnings, were discussed with the patient. Social History: See HPI PATIENT DATA: Generalized Anxiety Disorder Scale (FELIPE-7) FELIPE - 7 SCORES 09/12/2021 09/27/2021 10/21/2021 FELIPE-7 Score 20 19 19 (0-4) minimal anxiety, (5-9) mild anxiety, (10-14) moderate anxiety, (15-21) severe anxiety Patient Health Questionnaire (PHQ-9) PHQ-9 09/12/2021 09/27/2021 10/21/2021 Score 25 24 23 (0-4) minimal depression, (5-9) mild depression, (10-14) moderate depression, (15-19) moderately severe depression, (20-27) severe depression ROS: General: Negative for fever, malaise, unintentional weight loss HEENT: Negative for recent changes in vision or hearing, no nasal drainage Respiratory: Negative for cough, wheezing or SOB Cardiovascular: Negative for chest pain GI: Negative for nausea, vomiting, change in bowel habits MUSCULOSKELETAL: Negative for acute back or joint pain SKIN: Negative for rash NEURO: Negative for headaches, seizures, focal neurological deficits All other systems negative. VITAL SIGNS: None obtained due to virtual visit. BP Temp Pulse Resp SpO2 MENTAL STATUS EXAMINATION: Appearance: Appropriately groomed, appears stated age Behavior: Appropriately engaged Psychomotor: No psychomotor agitation Cognition Level of Consciousness: Awake and alert. No fluctuation in wakefulness. Orientation: Grossly oriented Memory: Intact Attention/Concentration: Good Fund of Knowledge: Able to demonstrate an awareness of current events. Mood: Anxious Affect: Tearful Speech/Language: Rapid , Rambling and Appropriate tone, prosody, katie, phonetics, and syntax Thought Form: Perseveration, Tangential and Goal-directed. No loosening of associations. Thought Content: No delusions noted or endorsed. Perceptual Disturbances: Did not appear to respond to auditory stimuli. Safety: Suicidal Ideations: No suicidal ideation, intent or plan. Homicidal Ideations: No homicidal ideation, intent or plan. Insight: Limited Judgment: Limited I spent a total of 38 minutes on the date of the service which included preparing to see the patient, [id number] patient care, completing clinical documentation, and counseling and educating the patient/family/caregiver, ordering medications/labs. Richard Boyer APRN.CNP October 24, 2021 6:01 PM documented in this encounter [facility] 10-04-2021 Instructions Richard Boyer APRN.CNP - 10/04/2021 6:37 PM EDT Sophia Haji, It was good to talk with you today. Below is a summary of the plan that we discussed during your appointment for reference. Of course, if you have any questions or concerns do not hesitate to reach out to me via a message or call. Best, Richard Boyer APRN.CNP PLAN AND FOLLOW UP: YOU SHOULD SEEK IMMEDIATE MEDICAL ATTENTION AT THE NEAREST EMERGENCY DEPARTMENT OR BY CALLING 911, IF ANY OF THE FOLLOWING OCCURS: - New or worsening thoughts of harming yourself (suicidal thoughts) or others (homicidal thoughts) - Not feeling safe at home or worrying about your ability to remain safe at home If you are having thoughts of harming yourself or others, then you can: - Call the National Suicide Hotline at 2-267-QDAJNXR ( ) or 5-411-230-TALK (2683) - Text 4HOPE to 854208 Medication Update: 1. Stop Seroquel 2. Start Zyprexa (Olanzipine) 5 mg - take 1 tablet at bedtime. 3. Restart Cymbalta 30 mg - take 1 capsule once daily. 4. Continue Propranolol at the same dose. Next appointment: Nela will reach out to you regarding the next appointment, -- Please call my nurse Nela at [phone] or send me a message in [employer] with any questions or concerns between appointments. documented in this encounter [facility] 10-04-2021 History of Present illness Narrative Images from the original note were not included. PSYC FOLLOW UP - PSYCHIATRIC PROGRESS NOTE DIAGNOSIS: 1. FELIPE 2. Bipolar 2 disorder 3. Marijuana use GAF: -50-41 Serious symptoms or any serious impairment in social, occupational or school functioning. TREATMENT PLAN: 1. Discontinue Seroquel due to lack of efficacy. 2. Start Zyprexa to manage her mood, anxiety, and sleep concerns. 3. Restart Cymbalta to help with her rebound anxiety. She would benefit from a more gradual taper off this medication. 4. Continue Inderal at the same dose to help her manage her somatic anxiety symptoms. 5. Begin individual psychotherapy. 6. Encouraged patient to consider IOP. Currently patient does not wish to pursue due to morning hours. There are no evening IOP options in patient's area of residence. 7. She was counseled to discontinue marijuana use. 8. Follow up in 3 weeks. Medication Update: 1. Stop Seroquel 2. Start Zyprexa (Olanzipine) 5 mg - take 1 tablet at bedtime. 3. Restart Cymbalta 30 mg - take 1 capsule once daily. 4. Continue Propranolol at the same dose. The effects and side effects of all the medications were reviewed in detail with the patient. She is in agreement with the treatment plan. She denies any involuntary movement related side effects. Patient is aware to reach out with any questions, concerns, or worsening of symptoms prior to the next appointment. CC: Follow up regarding mood and anxiety With the patient consent, visit was performed virtually. HPI: Wayne Moreno is a 35 year old Female with a history of FELIPE, Bipolar 2 disorder and marijuana use presenting today for follow-up. Date of last visit: 09/19/2021 Plan from last visit: 1. Discontinue Hydroxyzine due to lack of efficacy. 2. Start Seroquel to help with her negative racing thoughts, anxiety and sleep difficulties. 3. Increase Propranolol to help with anticipatory and physical symptoms of anxiety. 4. Discontinue Cymbalta due to it inducing manic symptoms and causing rapid cycling. 5. Stat individual psychotherapy with Dr. Kumar. 6. Follow up in 2 weeks. 7. Contact [employer] to discuss financial support for utilities and other crucial bills as she is not able to work currently due to her anxiety. Dr. Nory Calderón assessed the patient with this provider. Today Wayne shares that she feels like she is a mess. Reports that she is still feeling anxious. She smoked a whole bowl of marijuana to manage her anxiety. She does verbalize that she is going to stop smoking marijuana after today. Her employer is working with her to provide shorter hours and less stressful work environment. Feels that she struggles with hypersensitivity to sounds which can make work even more stressful. Seroquel does not appear to help with her racing thoughts and she continues to struggle with difficulty falling asleep. Struggles with morning drowsiness and fatigue. We discussed utilizing Zyprexa instead to manage her symptoms. Feels that her appetite is low today but then it tends to fluctuate other times. Shares that she continues to struggle with anxiety, racing thoughts, and sleep difficulties. She has been engaging in more goal directed activity at night due to increased energy level. Shares that she was experiencing headaches due to grinding her teeth at night. She has not used a road crossing guard. Feels that she does this as a response to her anxiety. Shares that she struggles with short term memory difficulties related to her history of TBI. Reports anxiety interfering with her memory currently. She reports struggling with word placement at times. Missed her appointment with Dr. Kumar and had to reschedule for October. She does like counseling and it has benefited her in past. She was encouraged to check other options in the community to see if she is able to get an appointment sooner. Dr. Nory Calderón discussed restarting Cymbalta back to 30 mg due to the patient experiencing some rebound anxiety and tearfulness. Patient expressed some hesitancy but was educated by Dr. Calderón. She is in agreement to restart Cymbalta 30 mg for the next two months. Patient had expedited the taper of this medication but would benefit from a more gradual decrease. Interval Progress: Slightly worse Risks and benefits of the medication, including any black box warnings, were discussed with the patient. Social History: No change. PATIENT DATA: Generalized Anxiety Disorder Scale (FELIPE-7) FELIPE - 7 SCORES 09/05/2021 09/12/2021 09/27/2021 FELIPE-7 Score 20 20 19 (0-4) minimal anxiety, (5-9) mild anxiety, (10-14) moderate anxiety, (15-21) severe anxiety Patient Health Questionnaire (PHQ-9) PHQ-9 09/05/2021 09/12/2021 09/27/2021 Score 25 25 24 (0-4) minimal depression, (5-9) mild depression, (10-14) moderate depression, (15-19) moderately severe depression, (20-27) severe depression ROS: General: Negative for fever, malaise, unintentional weight loss HEENT: Negative for recent changes in vision or hearing, no nasal drainage Respiratory: Negative for cough, wheezing or SOB Cardiovascular: Negative for chest pain GI: Negative for nausea, vomiting, change in bowel habits MUSCULOSKELETAL: Negative for acute back or joint pain SKIN: Negative for rash NEURO: Negative for headaches, seizures, focal neurological deficits All other systems negative. VITAL SIGNS: None obtained due to virtual visit. BP Temp Pulse Resp SpO2 MENTAL STATUS EXAMINATION: Appearance: Appropriately groomed, appears stated age Behavior: Appropriately engaged Psychomotor: No psychomotor agitation Cognition Level of Consciousness: Awake and alert. No fluctuation in wakefulness. Orientation: Grossly oriented Memory: Intact Attention/Concentration: Good Fund of Knowledge: Able to demonstrate an awareness of current events. Mood: Anxious Affect: Tearful Speech/Language: Rapid , Rambling and Appropriate tone, prosody, katie, phonetics, and syntax Thought Form: Perseveration, Tangential and Goal-directed. No loosening of associations. Thought Content: No delusions noted or endorsed. Perceptual Disturbances: Did not appear to respond to auditory stimuli. Safety: Suicidal Ideations: No suicidal ideation, intent or plan. Homicidal Ideations: No homicidal ideation, intent or plan. Insight: Appropriate Judgment: Appropriate I spent a total of 54 minutes on the date of the service which included preparing to see the patient, [id number] patient care, completing clinical documentation, and counseling and educating the patient/family/caregiver, ordering medications/labs. Richard Boyer APRN.VCITOR M October 04, 2021 4:57 PM documented in this encounter [facility] 09-24-2021 Miscellaneous Notes Patient phones requesting refills as follows: Pending Prescriptions Disp Refills NYSTATIN 100,000 UNIT/GRAM TOPICAL OINTMENT 30 g 1 Sig: Apply 1 application to affected area twice daily for 14 days. CAROLINE: No STARR 08/31/21 NOV no upcoming appt Please review and advise. Varghese Royal LPN documented in this encounter [facility] 09-19-2021 Instructions Richard Boyer APRN.CNP - 09/19/2021 5:03 PM EDT Sophia Haji, It was good to talk with you today. Below is a summary of the plan that we discussed during your appointment for reference. Of course, if you have any questions or concerns do not hesitate to reach out to me via a message or call. Best, Richard Boyer APRN.CNP PLAN AND FOLLOW UP: YOU SHOULD SEEK IMMEDIATE MEDICAL ATTENTION AT THE NEAREST EMERGENCY DEPARTMENT OR BY CALLING 911, IF ANY OF THE FOLLOWING OCCURS: - New or worsening thoughts of harming yourself (suicidal thoughts) or others (homicidal thoughts) - Not feeling safe at home or worrying about your ability to remain safe at home If you are having thoughts of harming yourself or others, then you can: - Call the National Suicide Hotline at 9-896-LSIYJJB ( ) or 6-642-065-TALK (7164) - Text 4HBXP to 155019 Medication Update: 1. Stop Hydroxyzine. 2. Stop Cymbalta. 3. Start Seroquel 25 mg - take 1 tablet at bedtime. 4. Increase Propranolol to 20 mg - take 1 tablet of 20 mg twice daily as needed for increased feelings of anxiety. 5. Continue Lamictal at the same dose. Next appointment: October 04 at 5 pm Virtual -- You may call the department appointment line at [phone] to reschedule your appointment. -- Please call my nurse Nela at [phone] or send me a message in [email or web address] with any questions or concerns between appointments. documented in this encounter [facility] 09-19-2021 Miscellaneous Notes Addressed these concerns during the appointment today. documented in this encounter [facility] 09-19-2021 History of Present illness Narrative Images from the original note were not included. PSYC FOLLOW UP - PSYCHIATRIC PROGRESS NOTE DIAGNOSIS: 1. FELIPE 2. Bipolar 2 disorder GAF: -50-41 Serious symptoms or any serious impairment in social, occupational or school functioning. TREATMENT PLAN: 1. Discontinue Hydroxyzine due to lack of efficacy. 2. Start Seroquel to help with her negative racing thoughts, anxiety and sleep difficulties. 3. Increase Propranolol to help with anticipatory and physical symptoms of anxiety. 4. Discontinue Cymbalta due to it inducing manic symptoms and causing rapid cycling. 5. Stat individual psychotherapy with Dr. Kumar. 6. Follow up in 2 weeks. 7. Contact [facility] to discuss financial support for utilities and other crucial bills as she is not able to work currently due to her anxiety. Medication Update: 1. Stop Hydroxyzine. 2. Stop Cymbalta. 3. Start Seroquel 25 mg - take 1 tablet at bedtime. 4. Increase Propranolol to 20 mg - take 1 tablet of 20 mg twice daily as needed for increased feelings of anxiety. 5. Continue Lamictal at the same dose. The effects and side effects of all the medications were reviewed in detail with the patient. She is aware of the rash side effect associated with Lamictal. Patient is in agreement with the treatment plan. She is aware to reach out with any questions, concerns, or worsening of symptoms prior to the next appointment. CC: Follow up regarding mood and anxiety With the patient consent, visit was performed virtually. HPI: Wayne Moreno is a 35 year old Female with a history of FELIPE and Bipolar 2 disorder presenting today for follow-up. Date of last visit: 09/07/2021 Plan from last visit: 1. Decrease Cymbalta to 60 mg due to the possibility of it inducing manic symptoms. 2. Increase Lamictal to help with her depressive symptoms. 3. Utilize hydroxyzine at night to help with difficulty falling asleep and anxiety. 4. Utilize Propranolol as needed to help with anxiety during the day. 5. Provided referral to [facility] program. Today Wayne shares that she continues to feel anxious. She has been able to decrease the Cymbalta to 30 mg. She weaned quickly off the medication than recommended but has been able to tolerate it without withdrawals. Hydroxyzine helps her stay asleep but not fall asleep even at the 25 mg dose. She has tried the propranolol but feels that her anxiety was still very high. She did not experience any side effects and is in agreement to try a higher dose. Her mood has slightly improved with the increase in Lamictal. She has not gotten as irritable as she did on the lower dose. We discussed utilizing Seroquel at night to help with her racing thoughts, anxiety and sleep. She is in agreement to try this. She has used marijuana last night to help with sleep but she is in agreement to stop using it. She does not wish to continue utilizing marijuana as she is concerned about it making her bipolar symptoms worse. She has only been able to work for 1 four hour shift. She has a lot of anxiety regarding going into work. Patient has been concerned about not being able to pay her bills. She gets overwhelmed easily leaving her house. Patient was recommended to call [facility] to see if she qualified for support regarding her utilities. Patient shares that she does not want to engage in IOP as it is from 9 am to 12 pm and she is not able to wake up that early or engage in therapeutic discussion in the morning. She has an appointment coming up for individual therapy with Dr. Kumar. Interval Progress: Slightly improved Risks and benefits of the medication, including any black box warnings, were discussed with the patient. Social History: See HPI PATIENT DATA: Generalized Anxiety Disorder Scale (FELIPE-7) FELIPE - 7 SCORES 09/05/2021 09/05/2021 09/12/2021 FELIPE-7 Score 21 20 20 (0-4) minimal anxiety, (5-9) mild anxiety, (10-14) moderate anxiety, (15-21) severe anxiety Patient Health Questionnaire (PHQ-9) PHQ-9 09/05/2021 09/05/2021 09/12/2021 Score 26 25 25 (0-4) minimal depression, (5-9) mild depression, (10-14) moderate depression, (15-19) moderately severe depression, (20-27) severe depression ROS: General: Negative for fever, malaise, unintentional weight loss HEENT: Negative for recent changes in vision or hearing, no nasal drainage Respiratory: Negative for cough, wheezing or SOB Cardiovascular: Negative for chest pain GI: Negative for nausea, vomiting, change in bowel habits MUSCULOSKELETAL: Negative for acute back or joint pain SKIN: Negative for rash NEURO: Negative for headaches, seizures, focal neurological deficits All other systems negative. VITAL SIGNS: None obtained due to virtual visit. BP Temp Pulse Resp SpO2 MENTAL STATUS EXAMINATION: Appearance: Appropriately groomed, appears stated age Behavior: Appropriately engaged Psychomotor: No psychomotor agitation Cognition Level of Consciousness: Awake and alert. No fluctuation in wakefulness. Orientation: Grossly oriented Memory: Intact Attention/Concentration: Good Fund of Knowledge: Able to demonstrate an awareness of current events. Mood: Anxious Affect: Congruent to mood Speech/Language: Appropriate tone, prosody, katie, phonetics, and syntax Thought Form: Goal-directed. No loosening of associations. Thought Content: No delusions noted or endorsed. Perceptual Disturbances: Did not appear to respond to auditory stimuli. Safety: Suicidal Ideations: No suicidal ideation, intent or plan. Homicidal Ideations: No homicidal ideation, intent or plan. Insight: Appropriate Judgment: Appropriate I spent a total of 38 minutes on the date of the service which included preparing to see the patient, [id number] patient care, completing clinical documentation, and counseling and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 disorder, mixed, moderate (HCC) Bipolar I disorder, most recent episode (or current) mixed, moderate Weight gain due to medication Other symptoms concerning nutrition, metabolism, and development Marijuana use, continuous Current nicotine use Insomnia due to other mental disorder Psychosocial stressors Other psychological or physical stress, not elsewhere classified [facility]* Diagnosis Bipolar 1 disorder, mixed, moderate (HCC)- Primary Bipolar I disorder, most recent episode (or current) mixed, moderate Encounter for long-term (current) use of medications Encounter for long-term (current) use of other medications Insomnia due to other mental disorder Psychosocial stressors Other psychological or physical stress, not elsewhere classified Marijuana use, continuous Weight gain due to medication Other symptoms concerning nutrition, metabolism, and development Current nicotine use FELIPE (generalized anxiety disorder) Generalized anxiety disorder [facility]* Diagnosis Tick bite of right foot, initial encounter- Primary documented in this encounter [facility] note* Diagnosis Encounter for gynecological examination (general) (routine) without abnormal findings- Primary Screen for STD (sexually transmitted disease) Screening examination for venereal disease Encounter for screening for malignant neoplasm of cervix Screening for malignant neoplasm of the cervix Special screening examination for human papillomavirus (HPV) History of human papillomavirus infection Personal history of other infectious and parasitic disease IUD (intrauterine device) in place Presence of intrauterine contraceptive device [facility] Diagnosis NO SHOW- Primary [facility] Diagnosis NO SHOW- Primary [facility]* Diagnosis Cervical high risk HPV (human papillomavirus) test positive- Primary Cervical high risk human papillomavirus (HPV) DNA test positive [facility]* Diagnosis Urinary frequency- Primary [facility]* Diagnosis Bipolar 1 disorder, mixed, moderate (HCC)- Primary Bipolar I disorder, most recent episode (or current) mixed, moderate Insomnia due to other mental disorder Psychosocial stressors Other psychological or physical stress, not elsewhere classified Encounter for long-term (current) use of medications Encounter for long-term (current) use of other medications [facility]* Diagnosis Cervical high risk HPV (human papillomavirus) test positive- Primary Cervical high risk human papillomavirus (HPV) DNA test positive documented in this encounter [facility] for referral (narrative)* Diagnostic Procedure Only (Routine) - Closed Specialty Diagnoses / Procedures Referred By Melania cheney Referred To Contact XR IMAGING Diagnoses Pain in left foot Procedures XR FOOT GENERAL 3V AP/LAT/OBL LEFT RADEX FOOT COMPLETE MINIMUM [address] [address] Xr Imaging Referral ID Status Reason Start Date Expiration Date V isits Requested Visits Authorized [id number] Closed Auto-Generate d Referral 12/15/2021 05/20/2022 1 1 [facility] for referral (narrative)* Outpatient Procedure (Routine) - Pending Review Specialty Diagnoses / Procedures Referred By Contac t Referred To [facility] Diagnoses GERD without esophagitis Procedures EGD DIAGNOSTIC ESOPHAGOGASTRODUODENOSC OPY TRANSORAL DIAGNOSTIC Mihaela Prasad APRN.GAUGE MAKER APPRENTICE [address] [place] [address] [place] [phone] Referral ID Status Reason Start Date Expiration Date Visits Requested Visits Authorized [id number] Pending Review Auto-Generat ed Referral 01/31/2022 01/31/2023 1 1 [facility] for referral (narrative)* Outpatient Procedure (Routine) - Closed Specialty Diagnoses / Procedures [facility] Diagnoses GERD without esophagitis Procedures EGD DIAGNOSTIC ESOPHAGOGASTRODUODENOSC OPY TRANSORAL DIAGNOSTIC Mihaela Prasad APRN.GAUGE MAKER APPRENTICE [address] [place] [address] [id number] [place] [address] Referral ID Status Reason Start Date Expiration Date Visits Re quested Visits Authorized [id number] Closed 01/31/2022 01/31/2023 1 0 [facility] for referral (narrative)* Outpatient Procedure (Routine) - New Request Specialty Diagnoses / Procedures [facility] Diagnoses Gastroesophageal reflux disease, unspecified whether esophagitis present Procedures EGD DIAGNOSTIC ESOPHAGOGASTRODUODENOSC OPY TRANSORAL DIAGNOSTIC Mukhdomi, Caitie, PA-C [address] [place] [address] [facility] [address] [place] [id number] Referral ID Status Reason Start Date Expiration Date Visits Requested Visits Authorized [id number] New Request Auto-Generat ed Referral 12/21/2023 12/20/2024 1 1 [facility] for referral (narrative)* Outpatient Procedure (Routine) - New Request Specialty Diagnoses / Procedures Referred By Melania cheney Referred To Contact [facility] Diagnoses Gastroesophageal reflux disease, unspecified whether esophagitis present Procedures EGD DIAGNOSTIC ESOPHAGOGASTRODUODENOSC OPY TRANSORAL DIAGNOSTIC Caitie Wetzel PA-C [address] [place] [address] [address] Referral ID Status Reason Start Date Expiration Date Visits Requested Visits Authorized [id number] New Request Auto-Generat ed Referral 12/21/2023 12/20/2024 1 1 [facility] for referral (narrative)* Outpatient Procedure (Routine) - New Request Specialty Diagnoses / Procedures Referred By Melania cheney Referred To [facility] Diagnoses Wheezing Procedures SPIROMETRY - BASELINE AND POST DILATOR BRNCDILAT RSPSE SPMTRY PRE&POST-BRNCDILAT ADMN Mague Us APRN.CNP [address] [place] [address] [facility] [place] [address] [place] [id number] Referral ID Status Reason Start Date Expiration Date Visits Requested Visits Authorized [id number] New Request Auto-Generat ed Referral 02/05/2024 03/06/2025 1 1 [facility] for visit Narrative* Diagnostic Procedure Only (Routine) - Closed Specialty Diagnoses / Procedures Referred By Melania cheney Referred To Contact XR IMAGING Diagnoses Pain in left foot Procedures XR FOOT GENERAL 3V AP/LAT/OBL LEFT RADEX FOOT COMPLETE MINIMUM 3 VIEWS Ram[address]rez [address] [place] [address] Xr Imaging Referral ID Status Reason Start Date Expiration Date V isits Requested Visits Authorized [id number] Closed Auto-Generate d Referral 12/15/2021 05/20/2022 1 1 [facility] for visit Narrative* Outpatient Procedure (Routine) - Closed Specialty Diagnoses / Procedures Referred By Melania cheney Referred To Contact [facility] Diagnoses GERD without esophagitis Procedures EGD DIAGNOSTIC ESOPHAGOGASTRODUODENOSC OPY TRANSORAL DIAGNOSTIC Mihaela Prasad, DAIRY HUSBANDRY TEACHER.GAUGE MAKER APPRENTICE [address] [facility] [place] [address] [facility] [place] [address] [place] [address] Referral ID Status Reason Start Date Expiration Date Visits Re quested Visits Authorized [id number] Closed 01/31/2022 01/31/2023 1 0 [facility] Summary Purpose Family History No Family History Records FoundNo Family History Records FoundNo Family History Records FoundNo Family History Records FoundNo Family History Records FoundNo Family History Records Found Advance Directives No Advanced Directives Records FoundDocuments on File Type Date Recorded 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 Advance Directive(s) Advance Directive(s) 02/26/2020 1:37 PM Advance Directive(s) 07/18/2019 2:32 PM Documents on File Type Date Recorded 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 Advance Directive(s) Advance Directive(s) 02/26/2020 1:37 PM Advance Directive(s) 07/18/2019 2:32 PM Documents on File Type Date Recorded 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 Advance Directive(s) 07/18/2019 2:32 PM Latest Code Status on File Date Activated Date Inactivated Comments 01/08/2022 12:51 AM 01/11/2022 1:10 PM Documents on File Type Date Recorded 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 Advance Directive(s) 07/18/2019 2:32 PM Reason for Referral Specialty Diagnoses / Procedures Referred By Contac t Referred To Contact ADULT PSYCHOLOGY Diagnoses Anxiety and depression Procedures CONSULT TO PSYCHIATRY OFFICE/OUTPATIENT [facility] 60-74 MINUTES Lauro Quarles MD [address] [place] [address] Psyl Adult [facility] [address] [address] Referral ID Status Reason Start Date Expiration Date Visits Re quested Visits Authorized [id number] Closed 09/01/2021 09/01/2022 1 1 Specialty Diagnoses / Procedures Referred By Contac t Referred To Contact ADULT PSYCHIATRY Diagnoses FELIPE (generalized anxiety disorder) Bipolar II disorder (HCC) Procedures CONSULT TO INTENSIVE OUTPATIENT PROGRAM (IOP) OFFICE/OUTPATIENT [facility] 60-74 MINUTES Richard Boyer DAIRY HUSBANDRY TEACHER.GAUGE MAKER APPRENTICE [address] [place] [address] Psyc Adult [place] [address] [address] Referral ID Status Reason Start Date Expiration Date V isits Requested Visits Authorized [id number] Closed PCP Requested Referral 09/07/2021 09/07/2022 1 1 Specialty Diagnoses / Procedures Referred By Contac t Referred To Contact Gastroenterology Diagnoses GERD without esophagitis Procedures CONSULT TO GASTROENTEROLOGY OFFICE/OUTPATIENT [facility] 60-74 MINUTES Podlogar, WOOD Bowser.GAUGE MAKER APPRENTICE [address] [place] [address] Referral ID Status Reason Start Date Expiration Date Visits Requested Visits Authorized [id number] Pending Review PCP Requested Referral 01/17/2022 01/17/2023 1 1 Specialty Diagnoses / Procedures Referred By Contac t Referred To Contact [facility] Diagnoses Acute bilateral low back pain without sciatica Procedures CONSULT TO PHYSICAL THERAPY PHYSICAL THERAPY EVALUATION HIGH COMPLEX 45 MINS Podlogar, WOOD Bowser.GAUGE MAKER APPRENTICE [address] [place] [address] [facility] [place] [address] [place] [address] Referral ID Status Reason Start Date Expiration Date Visits Requested Visits Authorized [id number] Pending Review Auto-Generat ed Referral 09/18/2022 09/18/2023 1 1 Medications Administered Section Inactive Administered Medications - up to 3 most recent administrations Medication Order MAR Action Action Date Dose Rate Site bupivacaine (PF) 0.5 % (5 mg/mL) 2.5 mg injection 2.5 mg (0.5 mL), INTRA-ARTICULAR, ONCE, 1 dose, On Nataliia 12/15/21 at 1500 Given 12/15/2021 3:06 PM EDT 2.5 mg Foot, Left dexAMETHasone sodium phosphate 2 mg injection (DECADRON) 2 mg, INTRA-ARTICULAR, ONCE, 1 dose, On [place] 12/15/21 at 1500 Given 12/15/2021 3:06 PM EDT 2 mg Foot, Left triamcinolone acetonide 5 mg injection (KeNALog 10) 5 mg, INTRA-ARTICULAR, ONCE, 1 dose, On [place] 12/15/21 at 1500 Given 12/15/2021 3:07 PM EDT 5 mg Foot, Left Administered Medications Medication Order MAR Action Action Date Dose Rate Site PPD (Mantoux) Intradermal Given 01/25/2022 17:43 EDT 0.1 mL Left arm Administered Medications Medication Order MAR Action Action Date Dose Rate Site PPD (Mantoux) Intradermal Given 02/08/2022 15:09 EDT 0.1 mL Right ar m Health Concerns Infection Onset Date Last Indicated Resolved Time COVID-19 Rule-Out 02/08/2022 02/08/2022 Infection Onset Date Last Indicated Resolved Time COVID-19 Rule-Out 07/21/2022 07/21/2022 Infection Onset Date Last Indicated Resolved Time COVID-19 Confirmed 07/21/2022 07/21/2022 Additional Source Comments INFORMATION SOURCE (unrecogn ized section and content) DATE CREATED AUTHOR 12/19/2017 [facility] DATE CREATED AUTHOR AUTHOR'S ORGANIZ ATION 12/09/2019 [facility] DATE CREATED AUTHOR AUTHOR'S ORGANIZ ATION 01/12/2022 [facility] DATE CREATED AUTHOR AUTHOR'S ORGANIZ ATION 02/24/2023 [facility] DATE CREATED AUTHOR AUTHOR'S ORGANIZ ATION 02/25/2023 [facility] ([place]) DATE CREATED AUTHOR AUTHOR'S ORGANIZ ATION 12/24/2024 [facility] Source Comments (unrecognize d section and content) In the event this informatio n is protected by the Federal Confidentiality of Alcohol and Drug Abuse Patient Records regulations: The Federal rules restrict any use of the information to criminally investigate or prosecute any alcohol or drug abuse patient.[facility] event this information is protected by the Federal Confidentiality of Alcohol and Drug Abuse Patient Records regulations: The Federal rules restrict any use of the information to criminally investigate or prosecute any alcohol or drug abuse patient.[facility] the event this information is protected by the Federal Confidentiality of Alcohol and Drug Abuse Patient Records regulations: The Federal rules restrict any use of the information to criminally investigate or prosecute any alcohol or drug abuse patient.[facility] the event this information is protected by the Federal Confidentiality of Alcohol and Drug Abuse Patient Records regulations: The Federal rules restrict any use of the information to criminally investigate or prosecute any alcohol or drug abuse patient.[facility] the event this information is protected by the Federal Confidentiality of Alcohol and Drug Abuse Patient Records regulations: The Federal rules restrict any use of the information to criminally investigate or prosecute any alcohol or drug abuse patient.[facility] the event this information is protected by the Federal Confidentiality of Alcohol and Drug Abuse Patient Records regulations: The Federal rules restrict any use of the information to criminally investigate or prosecute any alcohol or drug abuse patient.[facility] the event this information is protected by the Federal Confidentiality of Alcohol and Drug Abuse Patient Records regulations: The Federal rules restrict any use of the information to criminally investigate or prosecute any alcohol or drug abuse patient.[facility] the event this information is protected by the Federal Confidentiality of Alcohol and Drug Abuse Patient Records regulations: The Federal rules restrict any use of the information to criminally investigate or prosecute any alcohol or drug abuse patient.[facility] the event this information is protected by the Federal Confidentiality of Alcohol and Drug Abuse Patient Records regulations: The Federal rules restrict any use of the information to criminally investigate or prosecute any alcohol or drug abuse patient.[facility] the event this information is protected by the Federal Confidentiality of Alcohol and Drug Abuse Patient Records regulations: The Federal rules restrict any use of the information to criminally investigate or prosecute any alcohol or drug abuse patient.[facility] the event this information is protected by the Federal Confidentiality of Alcohol and Drug Abuse Patient Records regulations: The Federal rules restrict any use of the information to criminally investigate or prosecute any alcohol or drug abuse patient.[facility] the event this information is protected by the Federal Confidentiality of Alcohol and Drug Abuse Patient Records regulations: The Federal rules restrict any use of the information to criminally investigate or prosecute any alcohol or drug abuse patient.[facility] the event this information is protected by the Federal Confidentiality of Alcohol and Drug Abuse Patient Records regulations: The Federal rules restrict any use of the information to criminally investigate or prosecute any alcohol or drug abuse patient.[facility] the event this information is protected by the Federal Confidentiality of Alcohol and Drug Abuse Patient Records regulations: The Federal rules restrict any use of the information to criminally investigate or prosecute any alcohol or drug abuse patient.[facility] the event this information is protected by the Federal Confidentiality of Alcohol and Drug Abuse Patient Records regulations: The Federal rules restrict any use of the information to criminally investigate or prosecute any alcohol or drug abuse patient.[facility] the event this information is protected by the Federal Confidentiality of Alcohol and Drug Abuse Patient Records regulations: The Federal rules restrict any use of the information to criminally investigate or prosecute any alcohol or drug abuse patient.[facility] the event this information is protected by the Federal Confidentiality of Alcohol and Drug Abuse Patient Records regulations: The Federal rules restrict any use of the information to criminally investigate or prosecute any alcohol or drug abuse patient.[facility] the event this information is protected by the Federal Confidentiality of Alcohol and Drug Abuse Patient Records regulations: The Federal rules restrict any use of the information to criminally investigate or prosecute any alcohol or drug abuse patient.[facility] the event this information is protected by the Federal Confidentiality of Alcohol and Drug Abuse Patient Records regulations: The Federal rules restrict any use of the information to criminally investigate or prosecute any alcohol or drug abuse patient.[facility] the event this information is protected by the Federal Confidentiality of Alcohol and Drug Abuse Patient Records regulations: The Federal rules restrict any use of the information to criminally investigate or prosecute any alcohol or drug abuse patient.[facility] HospitalIn the event this information is protected by the Federal Confidentiality of Alcohol and Drug Abuse Patient Records regulations: The Federal rules restrict any use of the information to criminally investigate or prosecute any alcohol or drug abuse patient.[facility] HospitalIn the event this information is protected by the Federal Confidentiality of Alcohol and Drug Abuse Patient Records regulations: The Federal rules restrict any use of the information to criminally investigate or prosecute any alcohol or drug abuse patient.[facility] HospitalIn the event this information is protected by the Federal Confidentiality of Alcohol and Drug Abuse Patient Records regulations: The Federal rules restrict any use of the information to criminally investigate or prosecute any alcohol or drug abuse patient.[facility] HospitalIn the event this information is protected by the Federal Confidentiality of Alcohol and Drug Abuse Patient Records regulations: The Federal rules restrict any use of the information to criminally investigate or prosecute any alcohol or drug abuse patient.[facility] HospitalIn the event this information is protected by the Federal Confidentiality of Alcohol and Drug Abuse Patient Records regulations: The Federal rules restrict any use of the information to criminally investigate or prosecute any alcohol or drug abuse patient.[facility] HospitalIn the event this information is protected by the Federal Confidentiality of Alcohol and Drug Abuse Patient Records regulations: The Federal rules restrict any use of the information to criminally investigate or prosecute any alcohol or drug abuse patient.[facility] HospitalIn the event this information is protected by the Federal Confidentiality of Alcohol and Drug Abuse Patient Records regulations: The Federal rules restrict any use of the information to criminally investigate or prosecute any alcohol or drug abuse patient.[facility] HospitalIn the event this information is protected by the Federal Confidentiality of Alcohol and Drug Abuse Patient Records regulations: The Federal rules restrict any use of the information to criminally investigate or prosecute any alcohol or drug abuse patient.[facility] HospitalIn the event this information is protected by the Federal Confidentiality of Alcohol and Drug Abuse Patient Records regulations: The Federal rules restrict any use of the information to criminally investigate or prosecute any alcohol or drug abuse patient.[facility] HospitalIn the event this information is protected by the Federal Confidentiality of Alcohol and Drug Abuse Patient Records regulations: The Federal rules restrict any use of the information to criminally investigate or prosecute any alcohol or drug abuse patient.[facility] HospitalIn the event this information is protected by the Federal Confidentiality of Alcohol and Drug Abuse Patient Records regulations: The Federal rules restrict any use of the information to criminally investigate or prosecute any alcohol or drug abuse patient.[facility] HospitalIn the event this information is protected by the Federal Confidentiality of Alcohol and Drug Abuse Patient Records regulations: The Federal rules restrict any use of the information to criminally investigate or prosecute any alcohol or drug abuse patient.[facility] HospitalIn the event this information is protected by the Federal Confidentiality of Alcohol and Drug Abuse Patient Records regulations: The Federal rules restrict any use of the information to criminally investigate or prosecute any alcohol or drug abuse patient.[facility] HospitalIn the event this information is protected by the Federal Confidentiality of Alcohol and Drug Abuse Patient Records regulations: The Federal rules restrict any use of the information to criminally investigate or prosecute any alcohol or drug abuse patient.[facility] HospitalIn the event this information is protected by the Federal Confidentiality of Alcohol and Drug Abuse Patient Records regulations: The Federal rules restrict any use of the information to criminally investigate or prosecute any alcohol or drug abuse patient.[facility] HospitalIn the event this information is protected by the Federal Confidentiality of Alcohol and Drug Abuse Patient Records regulations: The Federal rules restrict any use of the information to criminally investigate or prosecute any alcohol or drug abuse patient.[facility] HospitalIn the event this information is protected by the Federal Confidentiality of Alcohol and Drug Abuse Patient Records regulations: The Federal rules restrict any use of the information to criminally investigate or prosecute any alcohol or drug abuse patient.[facility] HospitalIn the event this information is protected by the Federal Confidentiality of Alcohol and Drug Abuse Patient Records regulations: The Federal rules restrict any use of the information to criminally investigate or prosecute any alcohol or drug abuse patient.[facility] HospitalIn the event this information is protected by the Federal Confidentiality of Alcohol and Drug Abuse Patient Records regulations: The Federal rules restrict any use of the information to criminally investigate or prosecute any alcohol or drug abuse patient.[facility] HospitalIn the event this information is protected by the Federal Confidentiality of Alcohol and Drug Abuse Patient Records regulations: The Federal rules restrict any use of the information to criminally investigate or prosecute any alcohol or drug abuse patient.[facility] HospitalIn the event this information is protected by the Federal Confidentiality of Alcohol and Drug Abuse Patient Records regulations: The Federal rules restrict any use of the information to criminally investigate or prosecute any alcohol or drug abuse patient.[facility] HospitalIn the event this information is protected by the Federal Confidentiality of Alcohol and Drug Abuse Patient Records regulations: The Federal rules restrict any use of the information to criminally investigate or prosecute any alcohol or drug abuse patient.[facility] HospitalIn the event this information is protected by the Federal Confidentiality of Alcohol and Drug Abuse Patient Records regulations: The Federal rules restrict any use of the information to criminally investigate or prosecute any alcohol or drug abuse patient.[facility] HospitalIn the event this information is protected by the Federal Confidentiality of Alcohol and Drug Abuse Patient Records regulations: The Federal rules restrict any use of the information to criminally investigate or prosecute any alcohol or drug abuse patient.[facility] HospitalIn the event this information is protected by the Federal Confidentiality of Alcohol and Drug Abuse Patient Records regulations: The Federal rules restrict any use of the information to criminally investigate or prosecute any alcohol or drug abuse patient.[facility] HospitalIn the event this information is protected by the Federal Confidentiality of Alcohol and Drug Abuse Patient Records regulations: The Federal rules restrict any use of the information to criminally investigate or prosecute any alcohol or drug abuse patient.[facility] HospitalIn the event this information is protected by the Federal Confidentiality of Alcohol and Drug Abuse Patient Records regulations: The Federal rules restrict any use of the information to criminally investigate or prosecute any alcohol or drug abuse patient.[facility] HospitalIn the event this information is protected by the Federal Confidentiality of Alcohol and Drug Abuse Patient Records regulations: The Federal rules restrict any use of the information to criminally investigate or prosecute any alcohol or drug abuse patient.[facility] HospitalIn the event this information is protected by the Federal Confidentiality of Alcohol and Drug Abuse Patient Records regulations: The Federal rules restrict any use of the information to criminally investigate or prosecute any alcohol or drug abuse patient.[facility] HospitalIn the event this information is protected by the Federal Confidentiality of Alcohol and Drug Abuse Patient Records regulations: The Federal rules restrict any use of the information to criminally investigate or prosecute any alcohol or drug abuse patient.[facility] HospitalIn the event this information is protected by the Federal Confidentiality of Alcohol and Drug Abuse Patient Records regulations: The Federal rules restrict any use of the information to criminally investigate or prosecute any alcohol or drug abuse patient.[facility] HospitalIn the event this information is protected by the Federal Confidentiality of Alcohol and Drug Abuse Patient Records regulations: The Federal rules restrict any use of the information to criminally investigate or prosecute any alcohol or drug abuse patient.[facility] HospitalIn the event this information is protected by the Federal Confidentiality of Alcohol and Drug Abuse Patient Records regulations: The Federal rules restrict any use of the information to criminally investigate or prosecute any alcohol or drug abuse patient.[facility] HospitalIn the event this information is protected by the Federal Confidentiality of Alcohol and Drug Abuse Patient Records regulations: The Federal rules restrict any use of the information to criminally investigate or prosecute any alcohol or drug abuse patient.[facility] HospitalIn the event this information is protected by the Federal Confidentiality of Alcohol and Drug Abuse Patient Records regulations: The Federal rules restrict any use of the information to criminally investigate or prosecute any alcohol or drug abuse patient.[facility] HospitalIn the event this information is protected by the Federal Confidentiality of Alcohol and Drug Abuse Patient Records regulations: The Federal rules restrict any use of the information to criminally investigate or prosecute any alcohol or drug abuse patient.[facility] HospitalIn the event this information is protected by the Federal Confidentiality of Alcohol and Drug Abuse Patient Records regulations: The Federal rules restrict any use of the information to criminally investigate or prosecute any alcohol or drug abuse patient.[facility] HospitalIn the event this information is protected by the Federal Confidentiality of Alcohol and Drug Abuse Patient Records regulations: The Federal rules restrict any use of the information to criminally investigate or prosecute any alcohol or drug abuse patient.[facility] HospitalIn the event this information is protected by the Federal Confidentiality of Alcohol and Drug Abuse Patient Records regulations: The Federal rules restrict any use of the information to criminally investigate or prosecute any alcohol or drug abuse patient.[facility] HospitalIn the event this information is protected by the Federal Confidentiality of Alcohol and Drug Abuse Patient Records regulations: The Federal rules restrict any use of the information to criminally investigate or prosecute any alcohol or drug abuse patient.[facility] HospitalIn the event this information is protected by the Federal Confidentiality of Alcohol and Drug Abuse Patient Records regulations: The Federal rules restrict any use of the information to criminally investigate or prosecute any alcohol or drug abuse patient.[facility] HospitalIn the event this information is protected by the Federal Confidentiality of Alcohol and Drug Abuse Patient Records regulations: The Federal rules restrict any use of the information to criminally investigate or prosecute any alcohol or drug abuse patient.[facility] HospitalIn the event this information is protected by the Federal Confidentiality of Alcohol and Drug Abuse Patient Records regulations: The Federal rules restrict any use of the information to criminally investigate or prosecute any alcohol or drug abuse patient.[facility] HospitalIn the event this information is protected by the Federal Confidentiality of Alcohol and Drug Abuse Patient Records regulations: The Federal rules restrict any use of the information to criminally investigate or prosecute any alcohol or drug abuse patient.[facility] HospitalIn the event this information is protected by the Federal Confidentiality of Alcohol and Drug Abuse Patient Records regulations: The Federal rules restrict any use of the information to criminally investigate or prosecute any alcohol or drug abuse patient.[facility] HospitalIn the event this information is protected by the Federal Confidentiality of Alcohol and Drug Abuse Patient Records regulations: The Federal rules restrict any use of the information to criminally investigate or prosecute any alcohol or drug abuse patient.[facility] HospitalIn the event this information is protected by the Federal Confidentiality of Alcohol and Drug Abuse Patient Records regulations: The Federal rules restrict any use of the information to criminally investigate or prosecute any alcohol or drug abuse patient.[facility] HospitalIn the event this information is protected by the Federal Confidentiality of Alcohol and Drug Abuse Patient Records regulations: The Federal rules restrict any use of the information to criminally investigate or prosecute any alcohol or drug abuse patient.[facility] HospitalIn the event this information is protected by the Federal Confidentiality of Alcohol and Drug Abuse Patient Records regulations: The Federal rules restrict any use of the information to criminally investigate or prosecute any alcohol or drug abuse patient.[facility] HospitalIn the event this information is protected by the Federal Confidentiality of Alcohol and Drug Abuse Patient Records regulations: The Federal rules restrict any use of the information to criminally investigate or prosecute any alcohol or drug abuse patient.[facility] HospitalIn the event this information is protected by the Federal Confidentiality of Alcohol and Drug Abuse Patient Records regulations: The Federal rules restrict any use of the information to criminally investigate or prosecute any alcohol or drug abuse patient.[facility] HospitalIn the event this information is protected by the Federal Confidentiality of Alcohol and Drug Abuse Patient Records regulations: The Federal rules restrict any use of the information to criminally investigate or prosecute any alcohol or drug abuse patient.[facility] HospitalIn the event this information is protected by the Federal Confidentiality of Alcohol and Drug Abuse Patient Records regulations: The Federal rules restrict any use of the information to criminally investigate or prosecute any alcohol or drug abuse patient.[facility] HospitalIn the event this information is protected by the Federal Confidentiality of Alcohol and Drug Abuse Patient Records regulations: The Federal rules restrict any use of the information to criminally investigate or prosecute any alcohol or drug abuse patient.[facility] HospitalIn the event this information is protected by the Federal Confidentiality of Alcohol and Drug Abuse Patient Records regulations: The Federal rules restrict any use of the information to criminally investigate or prosecute any alcohol or drug abuse patient.[facility] HospitalIn the event this information is protected by the Federal Confidentiality of Alcohol and Drug Abuse Patient Records regulations: The Federal rules restrict any use of the information to criminally investigate or prosecute any alcohol or drug abuse patient.[facility] HospitalIn the event this information is protected by the Federal Confidentiality of Alcohol and Drug Abuse Patient Records regulations: The Federal rules restrict any use of the information to criminally investigate or prosecute any alcohol or drug abuse patient.[facility] HospitalIn the event this information is protected by the Federal Confidentiality of Alcohol and Drug Abuse Patient Records regulations: The Federal rules restrict any use of the information to criminally investigate or prosecute any alcohol or drug abuse patient.[facility] HospitalIn the event this information is protected by the Federal Confidentiality of Alcohol and Drug Abuse Patient Records regulations: The Federal rules restrict any use of the information to criminally investigate or prosecute any alcohol or drug abuse patient.[facility] HospitalIn the event this information is protected by the Federal Confidentiality of Alcohol and Drug Abuse Patient Records regulations: The Federal rules restrict any use of the information to criminally investigate or prosecute any alcohol or drug abuse patient.[facility] HospitalIn the event this information is protected by the Federal Confidentiality of Alcohol and Drug Abuse Patient Records regulations: The Federal rules restrict any use of the information to criminally investigate or prosecute any alcohol or drug abuse patient.[facility] HospitalIn the event this information is protected by the Federal Confidentiality of Alcohol and Drug Abuse Patient Records regulations: The Federal rules restrict any use of the information to criminally investigate or prosecute any alcohol or drug abuse patient.[facility] HospitalIn the event this information is protected by the Federal Confidentiality of Alcohol and Drug Abuse Patient Records regulations: The Federal rules restrict any use of the information to criminally investigate or prosecute any alcohol or drug abuse patient.[facility] HospitalIn the event this information is protected by the Federal Confidentiality of Alcohol and Drug Abuse Patient Records regulations: The Federal rules restrict any use of the information to criminally investigate or prosecute any alcohol or drug abuse patient.[facility] HospitalIn the event this information is protected by the Federal Confidentiality of Alcohol and Drug Abuse Patient Records regulations: The Federal rules restrict any use of the information to criminally investigate or prosecute any alcohol or drug abuse patient.[facility] HospitalIn the event this information is protected by the Federal Confidentiality of Alcohol and Drug Abuse Patient Records regulations: The Federal rules restrict any use of the information to criminally investigate or prosecute any alcohol or drug abuse patient.[facility] HospitalIn the event this information is protected by the Federal Confidentiality of Alcohol and Drug Abuse Patient Records regulations: The Federal rules restrict any use of the information to criminally investigate or prosecute any alcohol or drug abuse patient.[facility] HospitalIn the event this information is protected by the Federal Confidentiality of Alcohol and Drug Abuse Patient Records regulations: The Federal rules restrict any use of the information to criminally investigate or prosecute any alcohol or drug abuse patient.[facility] HospitalIn the event this information is protected by the Federal Confidentiality of Alcohol and Drug Abuse Patient Records regulations: The Federal rules restrict any use of the information to criminally investigate or prosecute any alcohol or drug abuse patient.[facility] HospitalIn the event this information is protected by the Federal Confidentiality of Alcohol and Drug Abuse Patient Records regulations: The Federal rules restrict any use of the information to criminally investigate or prosecute any alcohol or drug abuse patient.[facility] HospitalIn the event this information is protected by the Federal Confidentiality of Alcohol and Drug Abuse Patient Records regulations: The Federal rules restrict any use of the information to criminally investigate or prosecute any alcohol or drug abuse patient.[facility] HospitalIn the event this information is protected by the Federal Confidentiality of Alcohol and Drug Abuse Patient Records regulations: The Federal rules restrict any use of the information to criminally investigate or prosecute any alcohol or drug abuse patient.[facility] HospitalIn the event this information is protected by the Federal Confidentiality of Alcohol and Drug Abuse Patient Records regulations: The Federal rules restrict any use of the information to criminally investigate or prosecute any alcohol or drug abuse patient.[facility] HospitalIn the event this information is protected by the Federal Confidentiality of Alcohol and Drug Abuse Patient Records regulations: The Federal rules restrict any use of the information to criminally investigate or prosecute any alcohol or drug abuse patient.[facility] HospitalIn the event this information is protected by the Federal Confidentiality of Alcohol and Drug Abuse Patient Records regulations: The Federal rules restrict any use of the information to criminally investigate or prosecute any alcohol or drug abuse patient.[facility] HospitalIn the event this information is protected by the Federal Confidentiality of Alcohol and Drug Abuse Patient Records regulations: The Federal rules restrict any use of the information to criminally investigate or prosecute any alcohol or drug abuse patient.[facility] HospitalIn the event this information is protected by the Federal Confidentiality of Alcohol and Drug Abuse Patient Records regulations: The Federal rules restrict any use of the information to criminally investigate or prosecute any alcohol or drug abuse patient.[facility] HospitalIn the event this information is protected by the Federal Confidentiality of Alcohol and Drug Abuse Patient Records regulations: The Federal rules restrict any use of the information to criminally investigate or prosecute any alcohol or drug abuse patient.[facility] HospitalIn the event this information is protected by the Federal Confidentiality of Alcohol and Drug Abuse Patient Records regulations: The Federal rules restrict any use of the information to criminally investigate or prosecute any alcohol or drug abuse patient.[facility] HospitalIn the event this information is protected by the Federal Confidentiality of Alcohol and Drug Abuse Patient Records regulations: The Federal rules restrict any use of the information to criminally investigate or prosecute any alcohol or drug abuse patient.[facility] HospitalIn the event this information is protected by the Federal Confidentiality of Alcohol and Drug Abuse Patient Records regulations: The Federal rules restrict any use of the information to criminally investigate or prosecute any alcohol or drug abuse patient.[facility] HospitalIn the event this information is protected by the Federal Confidentiality of Alcohol and Drug Abuse Patient Records regulations: The Federal rules restrict any use of the information to criminally investigate or prosecute any alcohol or drug abuse patient.[facility] HospitalIn the event this information is protected by the Federal Confidentiality of Alcohol and Drug Abuse Patient Records regulations: The Federal rules restrict any use of the information to criminally investigate or prosecute any alcohol or drug abuse patient.[facility] HospitalIn the event this information is protected by the Federal Confidentiality of Alcohol and Drug Abuse Patient Records regulations: The Federal rules restrict any use of the information to criminally investigate or prosecute any alcohol or drug abuse patient.[facility] HospitalIn the event this information is protected by the Federal Confidentiality of Alcohol and Drug Abuse Patient Records regulations: The Federal rules restrict any use of the information to criminally investigate or prosecute any alcohol or drug abuse patient.[facility] HospitalIn the event this information is protected by the Federal Confidentiality of Alcohol and Drug Abuse Patient Records regulations: The Federal rules restrict any use of the information to criminally investigate or prosecute any alcohol or drug abuse patient.[facility] HospitalIn the event this information is protected by the Federal Confidentiality of Alcohol and Drug Abuse Patient Records regulations: The Federal rules restrict any use of the information to criminally investigate or prosecute any alcohol or drug abuse patient.[facility] HospitalIn the event this information is protected by the Federal Confidentiality of Alcohol and Drug Abuse Patient Records regulations: The Federal rules restrict any use of the information to criminally investigate or prosecute any alcohol or drug abuse patient.[facility] HospitalIn the event this information is protected by the Federal Confidentiality of Alcohol and Drug Abuse Patient Records regulations: The Federal rules restrict any use of the information to criminally investigate or prosecute any alcohol or drug abuse patient.[facility] HospitalIn the event this information is protected by the Federal Confidentiality of Alcohol and Drug Abuse Patient Records regulations: The Federal rules restrict any use of the information to criminally investigate or prosecute any alcohol or drug abuse patient.[facility] HospitalIn the event this information is protected by the Federal Confidentiality of Alcohol and Drug Abuse Patient Records regulations: The Federal rules restrict any use of the information to criminally investigate or prosecute any alcohol or drug abuse patient.[facility] HospitalIn the event this information is protected by the Federal Confidentiality of Alcohol and Drug Abuse Patient Records regulations: The Federal rules restrict any use of the information to criminally investigate or prosecute any alcohol or drug abuse patient.[facility] HospitalIn the event this information is protected by the Federal Confidentiality of Alcohol and Drug Abuse Patient Records regulations: The Federal rules restrict any use of the information to criminally investigate or prosecute any alcohol or drug abuse patient.[facility] HospitalIn the event this information is protected by the Federal Confidentiality of Alcohol and Drug Abuse Patient Records regulations: The Federal rules restrict any use of the information to criminally investigate or prosecute any alcohol or drug abuse patient.[facility] HospitalIn the event this information is protected by the Federal Confidentiality of Alcohol and Drug Abuse Patient Records regulations: The Federal rules restrict any use of the information to criminally investigate or prosecute any alcohol or drug abuse patient.[facility] HospitalIn the event this information is protected by the Federal Confidentiality of Alcohol and Drug Abuse Patient Records regulations: The Federal rules restrict any use of the information to criminally investigate or prosecute any alcohol or drug abuse patient.[facility] HospitalIn the event this information is protected by the Federal Confidentiality of Alcohol and Drug Abuse Patient Records regulations: The Federal rules restrict any use of the information to criminally investigate or prosecute any alcohol or drug abuse patient.[facility] HospitalIn the event this information is protected by the Federal Confidentiality of Alcohol and Drug Abuse Patient Records regulations: The Federal rules restrict any use of the information to criminally investigate or prosecute any alcohol or drug abuse patient.[facility] HospitalIn the event this information is protected by the Federal Confidentiality of Alcohol and Drug Abuse Patient Records regulations: The Federal rules restrict any use of the information to criminally investigate or prosecute any alcohol or drug abuse patient.[facility] HospitalIn the event this information is protected by the Federal Confidentiality of Alcohol and Drug Abuse Patient Records regulations: The Federal rules restrict any use of the information to criminally investigate or prosecute any alcohol or drug abuse patient.[facility] HospitalIn the event this information is protected by the Federal Confidentiality of Alcohol and Drug Abuse Patient Records regulations: The Federal rules restrict any use of the information to criminally investigate or prosecute any alcohol or drug abuse patient.[facility] HospitalIn the event this information is protected by the Federal Confidentiality of Alcohol and Drug Abuse Patient Records regulations: The Federal rules restrict any use of the information to criminally investigate or prosecute any alcohol or drug abuse patient.[facility] HospitalIn the event this information is protected by the Federal Confidentiality of Alcohol and Drug Abuse Patient Records regulations: The Federal rules restrict any use of the information to criminally investigate or prosecute any alcohol or drug abuse patient.[facility] HospitalIn the event this information is protected by the Federal Confidentiality of Alcohol and Drug Abuse Patient Records regulations: The Federal rules restrict any use of the information to criminally investigate or prosecute any alcohol or drug abuse patient.[facility] HospitalIn the event this information is protected by the Federal Confidentiality of Alcohol and Drug Abuse Patient Records regulations: The Federal rules restrict any use of the information to criminally investigate or prosecute any alcohol or drug abuse patient.[facility] HospitalIn the event this information is protected by the Federal Confidentiality of Alcohol and Drug Abuse Patient Records regulations: The Federal rules restrict any use of the information to criminally investigate or prosecute any alcohol or drug abuse patient.[facility] HospitalIn the event this information is protected by the Federal Confidentiality of Alcohol and Drug Abuse Patient Records regulations: The Federal rules restrict any use of the information to criminally investigate or prosecute any alcohol or drug abuse patient.[facility] HospitalIn the event this information is protected by the Federal Confidentiality of Alcohol and Drug Abuse Patient Records regulations: The Federal rules restrict any use of the information to criminally investigate or prosecute any alcohol or drug abuse patient.[facility] HospitalIn the event this information is protected by the Federal Confidentiality of Alcohol and Drug Abuse Patient Records regulations: The Federal rules restrict any use of the information to criminally investigate or prosecute any alcohol or drug abuse patient.[facility] HospitalIn the event this information is protected by the Federal Confidentiality of Alcohol and Drug Abuse Patient Records regulations: The Federal rules restrict any use of the information to criminally investigate or prosecute any alcohol or drug abuse patient.[facility] HospitalIn the event this information is protected by the Federal Confidentiality of Alcohol and Drug Abuse Patient Records regulations: The Federal rules restrict any use of the information to criminally investigate or prosecute any alcohol or drug abuse patient.[facility] HospitalIn the event this information is protected by the Federal Confidentiality of Alcohol and Drug Abuse Patient Records regulations: The Federal rules restrict any use of the information to criminally investigate or prosecute any alcohol or drug abuse patient.[facility] HospitalIn the event this information is protected by the Federal Confidentiality of Alcohol and Drug Abuse Patient Records regulations: The Federal rules restrict any use of the information to criminally investigate or prosecute any alcohol or drug abuse patient.[facility] HospitalIn the event this information is protected by the Federal Confidentiality of Alcohol and Drug Abuse Patient Records regulations: The Federal rules restrict any use of the information to criminally investigate or prosecute any alcohol or drug abuse patient.[facility] HospitalIn the event this information is protected by the Federal Confidentiality of Alcohol and Drug Abuse Patient Records regulations: The Federal rules restrict any use of the information to criminally investigate or prosecute any alcohol or drug abuse patient.[facility] HospitalIn the event this information is protected by the Federal Confidentiality of Alcohol and Drug Abuse Patient Records regulations: The Federal rules restrict any use of the information to criminally investigate or prosecute any alcohol or drug abuse patient.[facility] HospitalIn the event this information is protected by the Federal Confidentiality of Alcohol and Drug Abuse Patient Records regulations: The Federal rules restrict any use of the information to criminally investigate or prosecute any alcohol or drug abuse patient.[facility] HospitalIn the event this information is protected by the Federal Confidentiality of Alcohol and Drug Abuse Patient Records regulations: The Federal rules restrict any use of the information to criminally investigate or prosecute any alcohol or drug abuse patient.[facility] Reason for Visit (unrecogniz ed section and content) Reason Comments No Show Specialty Diagnoses / Procedures Referred By Contac t Referred To Contact Diagnoses Encounter for long-term (current) use of medications Procedures PROVIDER ORDERED FOLLOW UP OFFICE/OUTPATIENT NEW HIGH MDM 60 MINUTES Richard Boyer, DAIRY HUSBANDRY TEACHER.GAUGE MAKER APPRENTICE [address] [place] [address] Phone: tel: fax: Referral ID Status Reason Start Date Expiration Date Visits Requested Visits Authorized [id number] Authorized PCP Requested Referral 08/11/2024 08/11/2025 1 1 Reason Onset Date Comments Refill Request 08/14/2021 Reason Comments Consult psych Specialty Diagnoses / Procedures Referred By Contac t Referred To Contact Family Practice / FAMILY MEDICINE Diagnoses follow up/medication refills Procedures 4C EST Self Podlogar, Mague, DAIRY HUSBANDRY TEACHER.GAUGE MAKER APPRENTICE [address] [place] [address] Referral ID Status Reason Start Date Expiration Date V isits Requested Visits Authorized [id number] Closed Financial Clearance Required - OON Payor [facility] Auth Obtained 08/23/2021 05/20/2022 1 1 Reason Comments Consult Initial [facility] Pt Outr each Reason Comments Consult [facility] Assessment Virt ual Specialty Diagnoses / Procedures Referred By Contac t Referred To Contact Psychiatry / ADULT PSYCHOLOGY Diagnoses 1st eval Procedures VIDEO PSYC/PSYL EST Podlogar, Mague, DAIRY HUSBANDRY TEACHER.GAUGE MAKER APPRENTICE [address] [place] [address] Saravanan Nguyen, INVENTORY CONTROL MANAGER [address] [place] [address] Referral ID Status Reason Start Date Expiration Date V isits Requested Visits Authorized [id number] Authorized 05/21/2021 05/20/2022 99 99 Reason Comments New Patient Evaluation Specialty Diagnoses / Procedures Referred By Contac t Referred To Contact Psychiatry / ADULT PSYCHOLOGY Diagnoses 1st eval Procedures VIDEO PSYC/PSYL EST Podlogar, Mague, DAIRY HUSBANDRY TEACHER.GAUGE MAKER APPRENTICE [address] [place] [address] Saravanan Nguyen LISW [address] [place] [address] Reason Comments Follow Up Specialty Diagnoses / Procedures Referred By Contac t Referred To Contact Psychiatry / ADULT PSYCHIATRY Diagnoses NEW PATIENT Procedures VIDEO PSYC/PSYL NEW Saravanan Nguyen LISW [address] [place] [address] Richard Boyer, DAIRY HUSBANDRY TEACHER.GAUGE MAKER APPRENTICE [address] [place] [address] Referral ID Status Reason Start Date Expiration Date Visits Re quested Visits Authorized [id number] Closed 09/07/2021 2021 1 1 Reason Comments Anxiety Bipolar Disorder Follow Up Specialty Diagnoses / Procedures Referred By Contact Referred To Contact Psychiatry / ADULT PSYCHIATRY Diagnoses FOLLOW UP Procedures VIDEO PSYC/PSYL Lauro Sanchez MD [address] [place] [address] Richard Boyer, DAIRY HUSBANDRY TEACHER.GAUGE MAKER APPRENTICE [address] [place] [address] Referral ID Status Reason Start Date Expiration Date Visits Requested Visits Authorized [id number] Pending Review Patient Cleared - Admin/Chairma n/Director advise to proceed Financial Clearance Required - Self Pay 10/04/2021 01/02/2022 1 1 Reason Comments Follow Up Anxiety Depression Reason Comments Results Reason Comments Established Patient Follow Up Pain Specialty Diagnoses / Procedures Referred By Contac t Referred To Contact Podiatry / FAMILY MEDICINE Diagnoses Foot pain, left Procedures CONSULT TO PODIATRY OFFICE/OUTPATIENT NEW [facility] MDM 60-74 MINUTES PodlogarMague DAIRY HUSBANDRY TEACHER.GAUGE MAKER APPRENTICE [address] [place] [address] [facility] [address] [place] [address] Referral ID Status Reason Start Date Expiration Date Visits Re quested Visits Authorized [id number] Closed 12/15/2021 05/20/2022 1 1 Reason Comments Follow Up Anxiety Bipolar Disorder Reason Comments Refill Request Reason Comments Depression Specialty Diagnoses / Procedures Referred By Contac t Referred To Contact Referral ID Status Reason Start Date Expiration Date Visits Re quested Visits Authorized [id number] 1 1 Reason Comments GERD Referral ID Status Reason Start Date Expiration Date V isits Requested Visits Authorized [id number] Authorized 05/21/2021 05/20/2022 99 99 Reason Comments Physical Specialty Diagnoses / Procedures Referred By Contac t Referred To Contact Family Practice / FAMILY MEDICINE Diagnoses Physical Procedures 4C EST WELL Lauro Quarles MD [address] [place] [address] PodlogarMague APRN.GAUGE MAKER APPRENTICE [address] [place] [address] Referral ID Status Reason Start Date Expiration Date Visits Re quested Visits Authorized [id number] Closed 01/25/2022 05/20/2022 1 1 Reason Comments GERD Labs/ER 01/07/22 Reason Comments Orders Reason Comments Imm/Inj Reason Comments Headache Congestion, sinus pa in and pressure x4 days Reason Comments Headache Chest, nasal congest ion x2 wks. Reason Comments Patient Update Reason Comments Covid19 Concern Exposure x2 daysCong estion, ST x this AM Reason Comments Back Pain Reason Comments Telephone Call Reason Onset Date Comments Refill Request 12/29/2022 Reason Comments Physical Also need a TB titer Reason Comments Patient Question Reason Comments PT Eval Specialty Diagnoses / Procedures Referred By Contac t Referred To Contact [facility] Diagnoses Acute bilateral low back pain without sciatica Procedures CONSULT TO PHYSICAL THERAPY PHYSICAL THERAPY EVALUATION HIGH COMPLEX 45 MINS PodlogMague donis, DAIRY HUSBANDRY TEACHER.GAUGE MAKER APPRENTICE [address] [place] [address] [facility] [address] [place] [address] Referral ID Status Reason Start Date Expiration Date V isits Requested Visits Authorized [id number] Closed Auto-Generated Referral Financial Clearance Required - OON Payor Patient Cleared - INN Insurance Found 09/25/2022 05/20/2023 1 1 Reason Comments Covid19 Concern + covid exposure x2 days, congestion, bodyaches, STEPH[place] x this AM Reason Comments GERD Reason Comments Forms Health Clearance For m Reason Comments Appointment Specialty Diagnoses / Procedures [facility] Referred To Contact Psychiatry / ADULT PSYCHIATRY Diagnoses follow up Procedures VIDEO PSYC/PSYL EST Richard Boyer, DAIRY HUSBANDRY TEACHER.GAUGE MAKER APPRENTICE [address] [place] [address] Richard Boyer, DAIRY HUSBANDRY TEACHER.GAUGE MAKER APPRENTICE [address] [place] [address] Referral ID Status Reason Start Date Expiration Date V isits Requested Visits Authorized [id number] Pending Review 02/12/2023 05/13/2023 1 1 Reason Comments Ambulatory Social Work Reason Comments Medical Nutrition Therapy Prediabetes/ W eight management Specialty Diagnoses / Procedures [facility] Referred To Contact Diagnoses Weight gain due to medication Obesity, Class III, BMI 40-49.9 (morbid obesity) (HCC) Prediabetes Procedures ENDOCRINOLOGY DIETITIAN VISIT (MNT) MEDICAL NUTRITION ASSMT&IVNTJ INDIV EACH 15 RI MEDICAL NUTRITION ASSMT&IVNTJ INDIV EACH 15 RI MEDICAL NUTRITION ASSMT&IVNTJ INDIV EACH 15 RI MEDICAL NUTRITION ASSMT&IVNTJ INDIV EACH 15 RI Elida Noyola MD [address] [place] [address] Referral ID Status Reason Start Date Expiration Date Visits Requested Visits Authorized [id number] Pending Review PCP Requested Referral 12/12/2022 12/12/2023 1 1 Reason Comments Blood Pressure Reason Onset Date Comments Yearly Exam 03/19/2023 Specialty Diagnoses / Procedures [facility] To Contact [facility] Diagnoses Encounter for gynecological examination (general) (routine) without abnormal findings Annual exam. Procedures WELLNESS EXAMS EST 18-39 YRS MYC I ANNUAL Self Kin Pablo MD [address] [place] [address] Referral ID Status Reason Start Date Expiration Date V isits Requested Visits Authorized [id number] Closed Patient Cleared - INN Insurance Found 05/21/2022 05/20/2023 1 1 Reason Onset Date Comments Allied Health Visit 03/23/2023 Medication A dherence Outreach Reason Onset Date Comments Refill Request 05/03/2023 Reason Onset Date Comments Refill Request 06/26/2023 Reason Onset Date Comments Population Health Navigation Outreach 09/27/2023 [facility] Reason Onset Date Comments Refill Request 09/27/2023 Reason Onset Date Comments Refill Request 10/16/2023 Reason Onset Date Comments Refill Request 11/25/2023 Reason Comments Incontinence Reason Comments Appointment Cancelled Reason Onset Date Comments Population Health Navigation Outreach 12/03/2023 [facility] CURRENT ROSTER workbenc - AWV, Care gaps, HCC gap closure - [place] [facility] Reason Onset Date Comments Refill Request 01/02/2024 Reason Onset Date Comments Refill Request 01/25/2024 Reason Comments Lab Orders Reason Comments Med Change Request Reason Comments Breathing Problem PPD Screening Or Test Reason Comments PPD Read Reason Onset Date Comments Erroneous encounter-disregard 02/15/2024 Reason Onset Date Comments Population [facility] Navigation Outreach 02/19/2024 [facility] - [place] [facility] Reason Comments Patient Update Medication Problem Reason Comments report on medication Reason Comments Yearly Exam Reason Onset Date Comments Refill Request 04/10/2024 Reason Onset Date Comments Refill Request 05/31/2024 Reason Comments Follow Up Bipolar/Anxiety Specialty Diagnoses / Procedures Referred By Melania cheney Referred To Contact Psychiatry / ADULT PSYCHIATRY Diagnoses 4-6 week follow up Procedures VIDEO PSYC/PSYL EST Richard Boyer, DAIRY HUSBANDRY TEACHER.GAUGE MAKER APPRENTICE [address] [place] [address] Richard Boyer, DAIRY HUSBANDRY TEACHER.GAUGE MAKER APPRENTICE [address] [place] [address] Referral ID Status Reason Start Date Expiration Date V isits Requested Visits Authorized [id number] New Request 05/05/2024 08/03/2024 1 1 Reason Comments PA questions/Time sensitive Reason Comments Patient Question Patient Update Reason Onset Date Comments Refill Request 07/11/2024 Reason Comments chronic hp pain left sided weakness Reason Comments Follow Up Bipolar/discuss medi cation Specialty Diagnoses / Procedures Referred By Melania cheney Referred To Contact Psychiatry / ADULT PSYCHIATRY Diagnoses Patient request sooner visit to discuss meds Procedures EST PSRichard Segundo, DAIRY HUSBANDRY TEACHER.GAUGE MAKER APPRENTICE [address] [place] [address] Phone: tel: fax: Richard Boyer, DAIRY HUSBANDRY TEACHER.GAUGE MAKER APPRENTICE [address] [place] [address] Phone: tel: fax: Referral ID Status Reason Start Date Expiration Date V isits Requested Visits Authorized [id number] New Request 07/22/2024 10/20/2024 1 1 Reason Comments Follow Up Specialty Diagnoses / Procedures Referred By Melania t Referred To Contact Psychiatry / ADULT PSYCHIATRY Diagnoses PROVIDER ORDERED FOLLOW UP Procedures VIDEO PSYC/PSYL EST Richard Boyer, DAIRY HUSBANDRY TEACHER.GAUGE MAKER APPRENTICE [address] [place] [address] Phone: tel: fax: Richard Boyer, DAIRY HUSBANDRY TEACHER.GAUGE MAKER APPRENTICE [address] [place] [address] Phone: tel: fax: Referral ID Status Reason Start Date Expiration Date V isits Requested Visits Authorized [id number] New Request 08/11/2024 11/09/2024 1 1 Reason Comments tick bite Right foot x 1 day Specialty Diagnoses / Procedures Referred By Melania t Referred To Contact Psychiatry / ADULT PSYCHIATRY Diagnoses Reschedule from 08/29/24 Procedures VIDEO PSYC/PSYL EST Richard Boyer, DAIRY HUSBANDRY TEACHER.GAUGE MAKER APPRENTICE [address] [place] [address] Phone: tel: fax: Richard Boyer, DAIRY HUSBANDRY TEACHER.GAUGE MAKER APPRENTICE [address] [place] [address] Phone: tel: fax: Referral ID Status Reason Start Date Expiration Date V isits Requested Visits Authorized [id number] New Request 09/16/2024 12/15/2024 1 1 Reason Onset Date Comments Refill Request 09/29/2024 Reason Onset Date Comments Refill Request 10/30/2024 Reason Onset Date Comments Refill Request 10/31/2024 Reason Comments Urinary Frequency x 2 weeks Specialty Diagnoses / Procedures Referred By Melania cheney Referred To Contact Psychiatry / ADULT PSYCHIATRY Diagnoses PROVIDER ORDERED FOLLOW UP Procedures VIDEO PSYC/PSYL EST Richard Boyer, DAIRY HUSBANDRY TEACHER.GAUGE MAKER APPRENTICE [address] [place] [address] Phone: tel: fax: Richard Boyer, DAIRY HUSBANDRY TEACHER.GAUGE MAKER APPRENTICE [address] [place] [address] Phone: tel: fax: Referral ID Status Reason Start Date Expiration Date V isits Requested Visits Authorized [id number] New Request 11/05/2024 02/03/2025 1 1 Reason Comments Colposcopy Specialty Diagnoses / Procedures Referred By Melania cheney Referred To Contact [facility] Diagnoses Cervical high risk HPV (human papillomavirus) test positive Procedures COLPOSCOPY COLPOSCOPY CERVIX BX CERVIX & ENDOCRV CURRETAGE Kin Pablo MD [address] [place] [address] Phone: tel: fax: [facility] [address] [place] [address] Referral ID Status Reason Start Date Expiration Date V isits Requested Visits Authorized [id number] Closed Auto-Generate d Referral 09/16/2024 09/16/2025 1 1 Care Teams (unrecognized sec tion and content) Tobacco Hanger Relationship Specialty Start Date End Date Lauro Quarles MD [address] [place] [address] PCP - General Family Practice 01/17/19 Tobacco Hanger Relationship Specialty Start Date End Date Lauro Quarles MD [address] [place] [address] PCP - General Family Practice 01/17/19 Tobacco Hanger Relationship Specialty Start Date End Date Lauro Quarles MD [address] [place] [address] PCP - General Family Practice 01/17/19 Tobacco Hanger Relationship Specialty Start Date End Date Lauro Quarles MD [address] [place] [address] PCP - General Family Practice 01/17/19 Tobacco Hanger Relationship Specialty Start Date End Date Lauro Quarles MD [address] [place] [address] PCP - General Family Practice 01/17/19 Tobacco Hanger Relationship Specialty Start Date End Date Lauro Quarles MD [address] [place] [address] PCP - General Family Practice 01/17/19 Tobacco Hanger Relationship Specialty Start Date End Date Lauro Quarles MD [address] [place] [address] PCP - General Family Practice 01/17/19 Tobacco Hanger Relationship Specialty Start Date End Date Lauro Quarles MD [address] [place] [address] PCP - General Family Practice 01/17/19 Tobacco Hanger Relationship Specialty Start Date End Date Lauro Quarles MD [address] [place] [address] PCP - General Family Practice 01/17/19 Tobacco Hanger Relationship Specialty Start Date End Date Lauro Quarles MD [address] [place] [address] PCP - General Family Practice 01/17/19 Tobacco Hanger Relationship Specialty Start Date End Date Lauro Quarles MD [address] [place] [address] PCP - General Family Practice 01/17/19 Tobacco Hanger Relationship Specialty Start Date End Date Lauro Quarles MD [address] [place] [address] PCP - General Family Practice 01/17/19 Tobacco Hanger Relationship Specialty Start Date End Date Lauro Quarles MD [address] [place] [address] PCP - General Family Practice 01/17/19 Tobacco Hanger Relationship Specialty Start Date End Date Lauro Quarles MD [address] [place] [address], [place] [address] PCP - General Family Practice 01/17/19 Tobacco Hanger Relationship Specialty Start Date End Date Lauro Quarles MD [address] [place] [address], [place] [address] PCP - General Family Practice 01/17/19 Tobacco Hanger Relationship Specialty [place] [address] [place] [address] [place] [address] PCP - General Family Medicine 01/07/22 Tobacco Hanger Relationship Specialty Start Date End Date Lauro Quarles MD [facility] [place] [address] PCP - General Family Practice 01/17/19 Tobacco Hanger Relationship Specialty Start Date End Date Lauro Quarles MD [address] [place] [address] PCP - General Family Practice 01/17/19 Tobacco Hanger Relationship Specialty Start Date End Date Lauro Quarles MD [address] [place] [address], [place] [address] PCP - General Family Practice 01/17/19 Tobacco Hanger Relationship Specialty Start Date End Date Lauro Quarles MD [address] [place] [address] PCP - General Family Practice 01/17/19 Tobacco Hanger Relationship Specialty Start Date End Date Lauro Quarles MD [address] [place] [address] PCP - General Family Practice 01/17/19 Tobacco Hanger Relationship Specialty Start Date End Date Lauro Quarles MD [address] [place] [address] PCP - General Family Medicine 01/17/19 Tobacco Hanger Relationship Specialty Start Date End Date Lauro Quarles MD [facility] [place] [address] PCP - General Family Medicine 01/17/19 Tobacco Hanger Relationship Specialty Start Date End Date Lauro Quarles MD [address] [place] [address] PCP - General Family Medicine 01/17/19 Tobacco Hanger Relationship Specialty Start Date End Date Lauro Qurales MD [address] [place] [address] PCP - General Family Medicine 01/17/19 Tobacco Hanger Relationship Specialty Start Date End Date Lauor Quarles MD [address] [place] [address] PCP - General Family Medicine 01/17/19 Tobacco Hanger Relationship Specialty Start Date End Date Lauro Quarles MD [facility] [place] [address] PCP - General Family Medicine 01/17/19 Tobacco Hanger Relationship Specialty Start Date End Date Lauro Quarles MD [facility] [place] [address] PCP - General Family Medicine 01/17/19 Tobacco Hanger Relationship Specialty Start Date End Date Lauro Quarles MD [address] [place] [address] PCP - General Family Medicine 01/17/19 Tobacco Hanger Relationship Specialty Start Date End Date Lauro Quarles MD [address] [place] [address] PCP - General Family Medicine 01/17/19 Tobacco Hanger Relationship Specialty Start Date End Date Lauro Quarles MD [address] [place] [address] PCP - General Family Medicine 01/17/19 Tobacco Hanger Relationship Specialty Start Date End Date Lauro Quarles MD [address] [place] [address] PCP - General Family Medicine 01/17/19 Tobacco Hanger Relationship Specialty Start Date End Date Lauro Quarles MD [address] [place] [address] PCP - General Family Medicine 01/17/19 Tobacco Hanger Relationship Specialty Start Date End Date Lauro Quarles MD [address] [place] [address] PCP - General Family Medicine 01/17/19 Tobacco Hanger Relationship Specialty Start Date End Date Lauro Quarles MD [address] [place] [address] PCP - General Family Medicine 01/17/19 Tobacco Hanger Relationship Specialty Start Date End Date Lauro Quarles MD [address] [place] [address] PCP - General Family Medicine 01/17/19 Tobacco Hanger Relationship Specialty Start Date End Date Lauro Quarles MD [address] [place] [address] PCP - General Family Medicine 01/17/19 Tobacco Hanger Relationship Specialty Start Date End Date Lauro Quarles MD [address] [place] [address] PCP - General Family Medicine 01/17/19 Tobacco Hanger Relationship Specialty Start Date End Date Lauro Quarles MD [address] [place] [address] PCP - General Family Medicine 01/17/19 Tobacco Hanger Relationship Specialty Start Date End Date Lauro Quarles MD [address] [place] [address] PCP - General Family Medicine 01/17/19 Tobacco Hanger Relationship Specialty Start Date End Date Lauro Quarles MD [address] [place] [address] PCP - General Family Medicine 01/17/19 Tobacco Hanger Relationship Specialty Start Date End Date Lauro Quarles MD [address] [place] [address] PCP - General Family Medicine 01/17/19 Tobacco Hanger Relationship Specialty Start Date End Date Lauro Quarles MD [address] [place] [address] PCP - General Family Medicine 01/17/19 Tobacco Hanger Relationship Specialty Start Date End Date Lauro Quarles MD [address] [place] [address] PCP - General Family Medicine 01/17/19 Tobacco Hanger Relationship Specialty Start Date End Date Lauro Quarles MD [address] [place] [address] PCP - General Family Medicine 01/17/19 Tobacco Hanger Relationship Specialty Start Date End Date Lauro Quarles MD [address] [place] [address] PCP - General Family Medicine 01/17/19 Tobacco Hanger Relationship Specialty Start Date End Date Lauro Quarles MD [address] [place] [address] PCP - General Family Medicine 01/17/19 Tobacco Hanger Relationship Specialty Start Date End Date Lauro Quarles MD [address] [place] [address] PCP - General Family Medicine 01/17/19 Tobacco Hanger Relationship Specialty Start Date End Date Lauro Quarles MD [address] [place] [address] PCP - General Family Medicine 01/17/19 Tobacco Hanger Relationship Specialty Start Date End Date Lauro Quarles MD [address] [place] [address] PCP - General Family Medicine 01/17/19 Tobacco Hanger Relationship Specialty Start Date End Date Lauro Quarles MD [address] [place] [address] PCP - General Family Medicine 01/17/19 Tobacco Hanger Relationship Specialty Start Date End Date Lauro Quarles MD [address] [place] [address] PCP - General Family Medicine 01/17/19 Tobacco Hanger Relationship Specialty Start Date End Date Lauro Quarles MD [address] [place] [address] PCP - General Family Medicine 01/17/19 Tobacco Hanger Relationship Specialty Start Date End Date Lauro Quarles MD [address] [place] [address] PCP - General Family Medicine 01/17/19 Tobacco Hanger Relationship Specialty Start Date End Date Lauro Quarles MD [address] [place] [address] PCP - General Family Medicine 01/17/19 Tobacco Hanger Relationship Specialty Start Date End Date Lauro Quarles MD [address] [place] [address] PCP - General Family Medicine 01/17/19 Tobacco Hanger Relationship Specialty Start Date End Date Lauro Quarles MD [address] [place] [address] PCP - General Family Medicine 01/17/19 Tobacco Hanger Relationship Specialty Start Date End Date Lauro Quarles MD [address] [place] [address] PCP - General Family Medicine 01/17/19 Tobacco Hanger Relationship Specialty Start Date End Date Lauro Quarles MD [address] [place] [address] PCP - General Family Medicine 01/17/19 Tobacco Hanger Relationship Specialty Start Date End Date Lauro Quarles MD [address] [place] [address] PCP - General Family Medicine 01/17/19 Tobacco Hanger Relationship Specialty Start Date End Date Lauro Quarles MD [address] [place] [address] PCP - General Family Medicine 01/17/19 Tobacco Hanger Relationship Specialty Start Date End Date Lauro Quarles MD [address] [place] [address] PCP - General Family Medicine 01/17/19 Tobacco Hanger Relationship Specialty Start Date End Date Lauro Quarles MD [address] [place] [address] PCP - General Family Medicine 01/17/19 Podlogar, Mague, DAIRY HUSBANDRY TEACHER.GAUGE MAKER APPRENTICE [address] [place] [address] Special Delivery Carrier Family Medicine 04/26/24 Tobacco Hanger Relationship Specialty Start Date End Date Lauro Quarles MD [address] [place] [address] PCP - General Family Medicine 01/17/19 Podlogar, Mague, DAIRY HUSBANDRY TEACHER.GAUGE MAKER APPRENTICE [address] [place] [address] Special Delivery Carrier Family Medicine 04/26/24 Tobacco Hanger Relationship Specialty Start Date End Date Lauro Quarles MD [address] [place] [address] PCP - General Family Medicine 01/17/19 Podlogar, Mague, DAIRY HUSBANDRY TEACHER.GAUGE MAKER APPRENTICE [address] [place] [address] Special Delivery Carrier Family Medicine 04/26/24 Tobacco Hanger Relationship Specialty Start Date End Date Lauro Quarles MD [address] [place] [address] PCP - General Family Medicine 01/17/19 Podlogar, Mague, DAIRY HUSBANDRY TEACHER.GAUGE MAKER APPRENTICE [address] [place] [address] [facility] 04/26/24 Tobacco Hanger Relationship Specialty Start Date End Date Lauro Quarles MD [address] [place] [address] PCP - General Family Medicine 01/17/19 Podlogar, Mague, DAIRY HUSBANDRY TEACHER.GAUGE MAKER APPRENTICE [address] [place] [address] [facility] 04/26/24 Tobacco Hanger Relationship Specialty Start Date End Date Lauro Quarles MD [address] [place] [address] PCP - General Family Medicine 01/17/19 Podlogar, Mague, DAIRY HUSBANDRY TEACHER.GAUGE MAKER APPRENTICE [address] [place] [address] [facility] 04/26/24 Tobacco Hanger Relationship Specialty Start Date End Date Lauro Quarles MD [address] [place] [address] PCP - General Family Medicine 01/17/19 Podlogar, Mague DAIRY HUSBANDRY TEACHER.GAUGE MAKER APPRENTICE [address] [place] [address] Special Delivery Carrier Family Medicine 04/26/24 Jeremy Zamora APRN.GAUGE MAKER APPRENTICE [address] [facility], [place] [address] [facility] 08/01/24 Tobacco Hanger Relationship Specialty Start Date End Date Lauro Quarles MD [address] [place] [address] PCP - General Family Medicine 01/17/19 Podlogar, Mague DAIRY HUSBANDRY TEACHER.GAUGE MAKER APPRENTICE [address] [place] [address] [facility] Medicine 04/26/24 Tobacco Hanger Relationship Specialty Start Date End Date Lauro Quarles MD [address] [place] [address] PCP - General Family Medicine 01/17/19 Podlogar, Mague DAIRY HUSBANDRY TEACHER.GAUGE MAKER APPRENTICE [address] [place] [address] Special Delivery Carrier Family Medicine 04/26/24 Jeremy Zamora DAIRY HUSBANDRY TEACHER.GAUGE MAKER APPRENTICE [address] [place] [address] [facility] Medicine 08/11/24 Tobacco Hanger Relationship Specialty Start Date End Date Lauro Quarles MD [address] [place] [address] PCP - General Family Medicine 01/17/19 Mague Us APRN.GAUGE MAKER APPRENTICE [address] [place] [address] Special Delivery Carrier Family Medicine 04/26/24 Jeremy Zamora APRN.GAUGE MAKER APPRENTICE [address] [place] [address] Special Delivery Carrier Family Medicine 08/11/24 Tobacco Hanger Relationship Specialty Start Date End Date Lauro Quarles MD [address] [place] [address] PCP - General Family Medicine 01/17/19 FelishalogMague donis APRN.GAUGE MAKER APPRENTICE [address] [place] [address] Special Delivery Carrier Family Medicine 04/26/24 Jeremy Zamora APRN.GAUGE MAKER APPRENTICE [address] [place] [address] Special Delivery Carrier Family Medicine 08/11/24 Tobacco Hanger Relationship Specialty Start Date End Date Lauro Quarles MD [address] [place] [address] PCP - General Family Medicine 01/17/19 PodlogarMague APRN.GAUGE MAKER APPRENTICE [address] [place] [address] Special Delivery Carrier Family Medicine 04/26/24 Jeremy Zamora APRN.GAUGE MAKER APPRENTICE [address] [place] [address] Special Delivery Carrier Family Medicine 08/11/24 Tobacco Hanger Relationship Specialty Start Date End Date Lauro Quarles MD [address] [place] [address] PCP - General Family Medicine 01/17/19 PodlogarMague APRN.GAUGE MAKER APPRENTICE [address] [place] [address] Special Delivery Carrier Family Medicine 04/26/24 Jeremy Zamora APRN.GAUGE MAKER APPRENTICE [address] [place] [address] Special Delivery Carrier Family Medicine 08/11/24 Tobacco Hanger Relationship Specialty Start Date End Date Lauro Quarles MD [address] [place] [address] PCP - General Family Medicine 01/17/19 PodlogarMague APRN.GAUGE MAKER APPRENTICE [address] [place] [address] Special Delivery Carrier Family Medicine 04/26/24 Jeremy Zamora APRN.GAUGE MAKER APPRENTICE [address] [place] [address] [facility]/24 Tobacco Hanger Relationship Specialty Start Date End Date Lauro Quarles MD [address] [place] [address] PCP - General Family Medicine 01/17/19 PodlogarMague APRN.GAUGE MAKER APPRENTICE [address] [place] [address] Special Delivery Carrier Family Medicine 04/26/24 Jeremy Zamora APRN.GAUGE MAKER APPRENTICE [address] [place] [address] Special Delivery Carrier Family Medicine 10/30/24 Tobacco Hanger Relationship Specialty Start Date End Date Lauro Quarles MD [address] [place], [place] [address] PCP - General Family Medicine 01/17/19 PodlogarMague APRN.GAUGE MAKER APPRENTICE [address] [place] [address] Special Delivery Carrier Family Medicine 04/26/24 Jeremy Zamora DAIRY HUSBANDRY TEACHER.GAUGE MAKER APPRENTICE [address] [place] [address] [facility] 10/30/24 Tobacco Hanger Relationship Specialty Start Date End Date Lauro Quarles MD [address] [place] [address] PCP - General Family Medicine 01/17/19 PodlogarMague, DAIRY HUSBANDRY TEACHER.GAUGE MAKER APPRENTICE [address] [place] [address] Special Delivery Carrier Family Medicine 04/26/24 Jeremy Zamora, DAIRY HUSBANDRY TEACHER.GAUGE MAKER APPRENTICE [address] [place] [address] Special Delivery Carrier Family Medicine 08/11/24 10/05/24 Jeremy Zamora, DAIRY HUSBANDRY TEACHER.GAUGE MAKER APPRENTICE [address] [place], [place] [address] Special Delivery Carrier Family Medicine 10/30/24 Tobacco Hanger Relationship Specialty Start Date End Date Lauro Quarles MD [address] [place] [address] PCP - General Family Medicine 01/17/19 Podlogar, WOOD Bowser.GAUGE MAKER APPRENTICE [address] [place] [address] Special Delivery Carrier Family Medicine 04/26/24 Jeremy Zamora APRN.GAUGE MAKER APPRENTICE [address] [place], [place] [address] [facility] 10/30/24 Tobacco Hanger Relationship Specialty Start Date End Date Lauro Quarles MD [address] [place] [address] PCP - General Family Medicine 01/17/19 Podlogar, WOOD Bowser.GAUGE MAKER APPRENTICE [address] [place] [address] [facility] 04/26/24 Jeremy Zamora DAIRY HUSBANDRY TEACHER.GAUGE MAKER APPRENTICE [address] [place] [address] [facility] 10/30/24 Tobacco Hanger Relationship Specialty Start Date End Date Lauro Quarles MD [address] [place] [address] PCP - General Family Medicine 01/17/19 PodlogarMague APRN.GAUGE MAKER APPRENTICE [address] [place] [address] [facility] Family Medicine 04/26/24 Jeremy Zamora APRN.GAUGE MAKER APPRENTICE [address] [place] [address] [facility] Medicine 10/30/24 Tobacco Hanger Relationship Specialty Start Date End Date Lauro Quarles MD [address] [place], [place] [address] PCP - General Family Medicine 01/17/19 Mague Us APRN.GAUGE MAKER APPRENTICE [address] [place], [place] [address] Special Delivery Carrier Family Medicine 04/26/24 Jeremy Zamora APRN.GAUGE MAKER APPRENTICE [address] [place], [place] [address] Special Delivery Carrier Family [facility] 10/30/24 Scheduled Active and Recently Administ ered Medications (unrecognized section and content) Medication Order 01/09/2022 01/10/2022 01/11/2022 amLODIPine (NORVASC) tablet 10 mg 10 mg, Oral, Daily, First dose on 01/08/22 at 0900, Hold for SBP<110 901 (Given - Provider: Hugh Menendez RN - Comment: Bp 126/85) 08 (Given - Provider: Varghese Carbone LPN) 0807 (Given - Provider: Jemma Alvarez RN) lamoTRIgine (LAMICTAL) tablet 200 mg 200 mg, Oral, Daily, First dose (after last modification) on 01/08/22 at 2100 2036 (Given - Provider: Jessica Love RN) 2150 (Given - Provider: Sonia Rodriguez RN) lithium (ESKALITH) CR tablet 450 mg 450 mg, Oral, 2 times daily, First dose on 01/08/22 at 1200, DO NOT CRUSH OR CHEW. 1100 (Given - Provider: Hugh Menendez RN - Comment: Not given at scheduled time due to needed follow up with lab results.)2036 (Given - Provider: Jessica Love RN) 08 (Given - Provider: Varghese Carbone LPN)2150 (Given - Provider: Sonia Rodriguez RN) 0807 (Given - Provider: Jemma Alvarez RN) nicotine (NICODERM CQ) 21 mg/24 hr 1 patch 1 patch, Transdermal, Administer over 24 Hours, Daily, First dose on 01/08/22 at 0100, U/P Listed Hazardous Drug. Waste Must Be Disposed in [employer] Waste Container 0908 (Patch Removed - Provider: Hugh Menendez RN)0910 (Patch Applied - Provider: Hugh Menendez RN) 0822 (Patch Applied - Provider: Varghese Carbone LPN) 0738 (Patch Removed - Provider: Jemma Alvarez RN)0807 (Patch Applied - Provider: Jemma Alvarez RN)1052 (Due: Patch Removed - Provider: Discharge Provider, Automatic - Comment: Time automatically adjusted from order being discontinued) nitrofurantoin (macrocrystal-monohydrat e) (MACROBID) 100 MG capsule 100 mg 100 mg, Oral, Every 12 hours scheduled, First dose on 01/08/22 at 1100, For 5 days, Indication: UTI Treatment 0902 (Given - Provider: Hugh Menendez RN)2036 (Given - Provider: Jessica Love RN) 08 (Given - Provider: Varghese Carbone LPN)2149 (Given - Provider: Sonia Rodriguez RN) 08 (Given - Provider: Jemma Alvarez RN) pantoprazole (PROTONIX) EC tablet 40 mg 40 mg, Oral, Daily, First dose on 01/08/22 at 0900, DO NOT CRUSH OR CHEW. 1103 (Given - Provider: Hugh Menendez RN - Comment: Med given off scehdule due to later retrieval from pharmacy.) 08 (Given - Provider: Varghese Carbone LPN) 08 (Given - Provider: Jemma Alvarez RN) risperiDONE (RISPERDAL) tablet 2 mg (CANCELED) 2 mg, Oral, Nightly, First dose on Sun01/08/22 at 2100, May cause QT interval prolongation. 2036 (Given - Provider: Jessica Love RN) risperiDONE (RISPERDAL) tablet 3 mg 3 mg, Oral, Nightly, First dose (after last modification) on Sun01/10/22 at 2100, May cause QT interval prolongation. 2149 (Given - Provider: Sonia Rodriguez RN) PRN Medication Order 01/09/2022 01/10/2022 01/11/2022 aluminum-magnesium hydroxide-simethicone (MAALOX PLUS) 200-200-20 mg/5 mL suspension 30 mL 30 mL, Oral, Every 4 hours PRN, indigestion, Starting on 01/08/22 at 0048 benztropine (COGENTIN) injection 2 mg 2 mg, Intramuscular, Once as needed, acute dystonia, Starting on 01/08/22 at 0048, For 1 dose, [] and notify the physician. haloperidoL (HALDOL) tablet 5 mg(Linked Group 1) 5 mg, Oral, Every 4 hours PRN, agitation, Starting on 01/08/22 at 0048, Use oral route first, if tolerated. May cause QT interval prolongation. haloperidol lactate (HALDOL) injection 5 mg(Linked Group 1) 5 mg, Intramuscular, Every 4 hours PRN, agitation, Starting on 01/08/22 at 0048, Use oral route first, if tolerated. May cause QT interval prolongation. hydrOXYzine (ATARAX) tablet 50 mg 50 mg, Oral, Every 6 hours PRN, anxiety, Starting on 01/08/22 at 0048 2036 (Given - Provider: Jessica Love, RN) ibuprofen (ADVIL,MOTRIN) tablet 600 mg 600 mg, Oral, Every 6 hours PRN, mild pain, Starting on 01/08/22 at 0048, Give with Food Do Not Crush or Chew if administering orally due to bitter taste. May be crushed if given via tube. 825 (Given - Provider: Varghese Carbone LPN) magnesium hydroxide (MOM) 400 mg/5 mL suspension 2,400 mg 2,400 mg (30 mL), Oral, Daily PRN, constipation, constipation, Starting on 01/08/22 at 0048 Linked Groups Order Group 1: haloperidoL (HALDOL) tablet 5 mgJump to med 5 mg, Oral, Every 4 hours PRN, agitation, Starting on 01/08/22 at 0048
Use oral route first, if tolerated. May cause QT interval prolongation.
Or haloperidol lactate (HALDOL) injection 5 mgJump to med 5 mg, Intramuscular, Every 4 hours PRN, agitation, Starting on 01/08/22 at 0048
Use oral route first, if tolerated. May cause QT interval prolongation.
FOR RECORDS PERTAINING TO PATIENTS WHO ARE OR HAVE BEEN ENROLLED IN A CHEMICAL DEPENDENCY/SUBSTANCEABUSE PROGRAM, SOME INFORMATION MAY BE OMITTED. This clinical summary was aggregated from multiple sources. Caution should be exercised in using it in the provision of clinical care. This summary normalizes information from multiple sources, and as a consequence, information in this document may materially change the coding, format and clinical context of patient data. In addition, data may be omitted in some cases. CLINICAL DECISIONS SHOULD BE BASED ON THE PRIMARY CLINICAL RECORDS. [facility] [employer], [facility]. provides no warranty or guarantee of the accuracy or completeness of information in this document.
== END 2024-12-26 19:47 | disposition home or self-care (01) ==
PROVIDERS: Emergency Provider Surgery; PCP Nurse Practitioner Primary Care; Visit Provider Surgery
DX: M25.561 Pain in right knee (principal); E66.9 Obesity, unspecified; F17.210 Nicotine dependence, cigarettes, uncomplicated
CPT/HCPCS: 96372; 99282